=== PATIENT | female | born 1930 | race Caucasian/White ===

== ENCOUNTER → 2016-07-01 | Outpatient (CLI) | payer OTHER ==
[~2016-07-01] MED LIST: ALL100 PO; ALLO1TAB51 PO; ANSHCCR/ EX; ASCO500T3 PO; ASPI81TA28 PO; BIMA0.01 OP; CHOL2000 PO; CYAN100T6 PO; CYAN1CAP3 PO; DONE10TA12 PO; ECON118C TOP; FERR325T51 PO; FESO4TAB PO; FLUO10CA48 PO; FLUO20CA35 PO; FRRS300 PO; GLIM4TAB2 PO; HYZ/10015 PO; INSDGI SC; LEVO75TA PO; LOSA100T66 PO; METF1000 PO; METO25TA3 PO; MULT-190 PO; NAPR-201 PO; NPR375 PO; OMEP20CA9 PO; ONDA4TAB46 PO; OXYC1TAB3 PO; POLYSOL OPB; POTA10CA28 PO; RXC5 PO; SIMV40TA4 PO; SITA100T3 PO; SYN75 PO; [UNRECOGNIZED DRUG - CODE] PO
[2016-07-01 13:05] LABS: HEMATOCRIT 38.6 % (37-47); MEAN CORPUSCULAR HEMOGLOBIN 33.5 pg (25-34); MEAN CORPUSCULAR HGB CONC 34.2 g/dl (32-36); PLATELET COUNT 133 K/uL (130-400); RED BLOOD COUNT 3.94 M/uL (4.2-5.4); WHITE BLOOD COUNT 5.77 K/uL (4.8-10.8)
[2016-07-01 13:40] LABS: ALT/SGPT 22 U/L (12-78); BLOOD UREA NITROGEN 29 mg/dl (7-18); BUN/CREATININE RATIO 26.3 (10-20); CALCIUM 10.5 mg/dl (8.5-10.1); CARBON DIOXIDE 22 mmol/L (21-32); CHLORIDE 105 mmol/L (98-107); GLUCOSE 186 mg/dl (70-99); POTASSIUM 4.6 mmol/L (3.5-5.1); SODIUM 139 mmol/L (136-145)
[2016-07-01 13:42] LABS: ALB/GLOB RATIO 1.2 (0.9-2); ALKALINE PHOSPHATASE 65 U/L (45-117); AST/SGOT 20 U/L (15-37)
[2016-07-01 14:29] LABS: ESTIMATED AVERAGE GLUCOSE 183 mg/dl; HA1C FLAG Normal (Normal)
== END | disposition home or self-care (01) ==
LOC: C.LABPBG 11:08
PROVIDERS: ATTEND Internal Medicine Geriatric Medicine
DX: D64.9 Anemia, unspecified (principal); E78.5 Hyperlipidemia, unspecified; K76.0 Fatty (change of) liver, not elsewhere classified; E11.9 Type 2 diabetes mellitus without complications

== ENCOUNTER 2016-07-04 13:40 | Emergency (ER) | payer OTHER ==
[~2016-07-04] VITALS: Ht 144.8 cm; Wt 100.9 kg
[~2016-07-04 13:40] MED LIST changes: -ALL100 PO; -CYAN1CAP3 PO; -ECON118C TOP; -FLUO10CA48 PO; -FRRS300 PO; -INSDGI SC; -LEVO75TA PO; -LOSA100T66 PO; -NPR375 PO; -ONDA4TAB46 PO; -OXYC1TAB3 PO; -RXC5 PO; -[UNRECOGNIZED DRUG - CODE] PO
[2016-07-04 13:49] VITALS: TEMP 37; Ht 144.8 cm; Wt 100.9 kg
[2016-07-04] MEDS ORDERED: MoRPHine SULFATE 10 MG/ML CARP/VIAL IM STA (14:07)
[2016-07-04] MEDS ORDERED: ONDANSETRON 4MG OD TAB PO ONE (14:15)
--- NOTE | 2016-07-04 14:36 | DIAGNOSTIC IMAGING REPORT ---
RIGHT SHOULDER MIN 2 VIEWS ROUTINE CLINICAL HISTORY: Severe right shoulder pain COMPARISON: None DISCUSSION: There are mild degenerative changes present. No fractures, dislocations, or destructive lesions are evident. The heart appears enlarged with prominent central vasculature. IMPRESSION: No fractures, dislocations, or destructive lesions are visualized.. Electronically signed by: Cecli Kaiser M.D. 07/04/2016 2:34 PM Dictated Date/Time: 07/04/2016 2:33 PM
--- NOTE | 2016-07-04 14:40 | EMERGENCY ROOM VISIT NOTE ---
History Report prepared by Rachibshawn: Tushar Vásquez Under the Supervision of: Dr. Fahad Collins D.O. First contact with patient: 13:52 Chief Complaint: SHOULDER PAIN Stated Complaint: SEVERE RIGHT SHOULDER PAIN History of Present Illness The patient is an 85 year old female who presents to the Emergency Room with complaints of persistent right shoulder pain that started yesterday evening. The patient notes that she has a history of bad shoulders and has had discomfort similar to her symptoms before, but never this severe. The patient notes that yesterday she was using her arms and shoulders more than usual cleaning the bedroom and doing laundry. Doing her laundry usually hurts her shoulder, but it has never been this bad before. The patient also was mixing potatoes which she usually doesn't do which was when she started noticing the pain. Last night, the discomfort was located on the top of her shoulder. However , this morning she complained of shooting pains down her right arm and down the right side of her back. She also complains of nausea from the pain. Pt denies headache, change in vision, fevers, chest pain, shortness of breath, vomiting, and diarrhea. Source of History: patient Onset: yesterday evening Position: shoulder (right) Symptom Intensity: severe Timing: other (persistent) Associated Symptoms: + back pain (radiation down right side of back), No cough, No fevers, No numbness, No weakness Note: Other associated symptoms: radiation down right arm Denies: runny nose Review of Systems See HPI for pertinent positives & negatives. A total of 10 systems reviewed and were otherwise negative. Past Medical & Surgical Medical Problems: (1) Diabetes (2) Hypertension (3) TIA (transient ischemic attack) Family History Diabetes mellitus Heart disease Hypertension Kidney disease Kidney stones Social History Smoking Status: Never Smoker Alcohol Use: none Drug Use: none Marital Status: Housing Status: lives with family Occupation Status: retired Current/Historical Medications Scheduled Allopurinol (Allopurinol), 100 MG PO QAM Ascorbic Acid (Vitamin C), 500 MG PO QPM Aspirin (Aspirin Ec), 81 MG PO HS Bimatoprost (Lumigan), 1 DROPS OP HS Cholecalciferol (Vitamin D3), 2,000 INTER.UNIT PO BID Cyanocobalamin (B-12), 1,000 MCG PO HS Donepezil Hydrochloride (Aricept), 10 MG PO HS Ferrous Sulfate (Ferrous Sulfate), 325 MG PO DAILY WITH FOOD Fesoterodine Fumarate (Toviaz), 4 MG PO BID Fluoxetine (Prozac), 10 MG PO HS Glimepiride (Glimepiride), 2 MG PO QPM Hctz/Losartan (Hyzaar 25MG/100MG), 1 TAB PO QAM Insulin Glargine (Lantus), 19 UNITS SC QPM Levothyroxine Sodium (Synthroid), 75 MCG PO QAM Losartan Potassium & Hydrochlo (Losartan Potassium/Hydroc), 1 TAB PO DAILY Metformin Hcl (Glucophage), 1,000 MG PO BID Metoprolol Succ (Toprol Xl) (Toprol-Xl), 25 MG PO HS Ocuvite Preservision (Ocuvite Preservision), 1 TAB PO BID Omeprazole (Prilosec), 20 MG PO BID Polyvinyl Alcohol-Povidone (Op (Refresh), 1 DROP OPB QAM Potassium Chloride (Micro-K Ext Rel), 10 MEQ PO BID Simvastatin (Zocor), 40 MG PO QPM Scheduled PRN Econazole Nitrate (Econazole Nitrate), 1 APPLN TOP BID PRN for PRN Hydrocortisone (Hydrocortisone 2.5%), 1 APPLN EX TID PRN for PRN Naproxen (Naproxen), 375 MG PO DAILY PRN for Pain Oxycodone Immediate Rel Tab (Roxicodone Ir), 5 MG PO Q4H PRN for Severe Pain Tramadol Hcl (Ultram Er), 100 MG PO DAILY PRN for Pain Allergies Coded Allergies: Lisinopril (Unverified Allergy, Unknown, COUGH, 07/04/16) Sulfa Antibiotics (Verified Adverse Reaction, Unknown, VOMITING, 07/04/16) Physical Exam Vital Signs Date Time Temp Pulse Resp B/P Pulse Ox O2 Delivery O2 Flow Rate FiO2 07/04/16 15:10 88 18 155/87 93 Room Air 07/04/16 13:49 37.0 89 18 165/92 94 Room Air Physical Exam GENERAL: sitting up in bed, no distress, non-toxic EYE EXAM: normal conjunctiva. OROPHARYNX: no exudate, no erythema, lips, buccal mucosa, and tongue normal and mucous membranes are moist NECK: supple, no nuchal rigidity, no adenopathy, non-tender LUNGS: Clear to auscultation. Normal chest wall mechanics HEART: no murmurs, S1 normal and S2 normal ABDOMEN: abdomen soft, non-tender, normo-active bowel sounds, no masses, no rebound or guarding. BACK: Back is symmetrical on inspection and there is no deformity, no midline tenderness, no CVA tenderness. SHOULDER: Acute reproducible tenderness over mid-humeral head, radial pulse is 2 out of 4, grasp with abduction along with digits intact, pronation, supination along with flexion and extension of wrist and elbow 5 out of 5, severe pain with abduction, no obvious deformity. SKIN: no rashes and no bruising. Old incision over bilateral knees. LOWER EXTREMITIES: No pitting edema. NEURO EXAM: Normal sensorium. Medical Decision & Procedures ER Provider Diagnostic Interpretation: Xray results per the radiologist and my interpretation. RIGHT SHOULDER MIN 2 VIEWS ROUTINE CLINICAL HISTORY: Severe right shoulder pain COMPARISON: None DISCUSSION: There are mild degenerative changes present. No fractures, dislocations, or destructive lesions are evident. The heart appears enlarged with prominent central vasculature. IMPRESSION: No fractures, dislocations, or destructive lesions are visualized.. Electronically signed by: Cecil Kaiser M.D. 07/04/2016 2:34 PM Dictated Date/Time: 07/04/2016 2:33 PM Medications Administered Medications (Trade) Dose Ordered Sig/Eugene Route Start Time Stop Time Status Last Admin Dose Admin Morphine Sulfate (MoRPHine SULFATE INJ) 6 mg NOW STAT IM 07/04/16 14:07 07/04/16 14:08 DC 07/04/16 14:17 6 MG Ondansetron HCl (Zofran Odt) 4 mg ONE ONCE PO 07/04/16 14:15 07/04/16 14:16 DC 07/04/16 14:17 4 MG ED Course ED COURSE: Vital signs were reviewed and showed hypertensive The patients medical record was reviewed The above diagnostic studies were performed and reviewed. ED treatments and interventions as stated above. 1357: The patient was evaluated in room C6. A complete history and physical examination was performed. 1407: Ordered Morphine Sulfate 6 mg IM. 1415: Ordered Zofran Odt 4 mg PO. 1456: Upon reevaluation, the patient is resting comfortably.I discussed my findings with the patient and she understands and agrees with the treatment plan. Based on the patients age, coexisting illnesses, exam and lab findings the decision to treat as an outpatient was made. The patient remained stable while under my care. The patient appeared well at the time of discharge. Medical Decision Differential diagnosis: Etiologies such as fracture, dislocation, neurovascular compromise, compartment syndrome, soft tissue injury, as well as others were entertained. Patient is an 85-year-old female who presents the ER for right shoulder pain. She notes that she gets this intermittently when she overexerted herself which includes folding the laundry. This started last night after dinner and mixing potatoes. Patient denies any numbness or weakness in her arm. Pain is significantly worsened with abduction. Neurovascularly intact. Patient is no other complaints at this time. X-ray show no acute fracture dislocation. I do favor that this is likely secondary to overuse and possibly accommodation of arthritis. Patient was given IM morphine and oral Zofran. Patient was updated bedside discharged follow-up with primary care doctor. Discussed with Pt concerning signs and symptoms to watch out for. Pt was instructed to follow up with their PCP and discussed with the patient their option to return to the ED at anytime for persistent or worsening symptoms. The appropriate anticipatory guidance and out-patient management, including indications for return to the emergency department, were explained at length to the patient and understood. [place] Drug Monitoring Program Search Results: patient reviewed within database (Previous Tramadol prescriptions) Impression Primary Impression: Shoulder pain, acute Scribe Attestation The scribe's documentation has been prepared under my direction and personally reviewed by me in its entirety. I confirm that the note above accurately reflects all work, treatment, procedures, and medical decision making performed by me. Departure Information Dispostion Home / Self-Care Prescriptions Oxycodone Immediate Rel Tab (ROXICODONE IR) 5 Mg Tab 5 MG PO Q4H Y for Severe Pain, #20 TAB Prov: Fahad Collins, 07/04/16 Referrals Rober Mack M.D. (PCP) Forms HOME CARE DOCUMENTATION FORM, IMPORTANT VISIT INFORMATION Patient Instructions My [facility] Additional Instructions Please follow up with your primary care doctor with in the next 24 hours. Any worsening of your symptoms, please return to the ED immediately. This includes fevers greater than 100.4, worsening pain, numbness or weakness in her arm, or any other concerning signs or symptoms from your standpoint. You were given medications during this visit that will inhibit your ability to drive, operate machinery and work. Please do NOT drive, operate machinery or work for the next 12hrs. You were also given a prescription for a narcotic/OXY IR. While taking this medication you should also not drive, operate machinery and or work. Please do not take OxyIR in combination with Ultram/tramadol. Problem Qualifiers Primary Impression: Shoulder pain, acute Laterality: right Qualified Codes: M25.511 - Pain in right shoulder
[2016-07-04] MEDS ORDERED: FRRS300 PO (14:52)
[2016-07-04] MEDS ORDERED: CYAN1CAP3 PO (14:52)
[2016-07-04] MEDS ORDERED: NPR375 PO (14:52)
[2016-07-04] MEDS ORDERED: ECON118C TOP (14:52)
[2016-07-04] MEDS ORDERED: LOSA100T66 PO (14:52)
[2016-07-04] MEDS ORDERED: LEVO75TA PO (14:52)
[2016-07-04] MEDS ORDERED: ALL100 PO (14:52)
[2016-07-04] MEDS ORDERED: [UNRECOGNIZED DRUG - CODE] PO (14:52)
[2016-07-04] MEDS ORDERED: OXYC1TAB3 PO (14:53)
[2016-07-04] MEDS ORDERED: INSDGI SC (14:59)
[2016-07-04 15:10] VITALS: BP 155/87; PULSE 88; O2SAT 93
[2016-07-14] MEDS ORDERED: FLUO10CA48 PO (10:28)
[2016-07-14] MEDS ORDERED: ONDA4TAB46 PO (10:30)
[2016-08-07] MEDS ORDERED: RXC5 PO (09:40)
== END 2016-07-04 15:11 | disposition home or self-care (01) ==
LOC: C.EDB 13:44 → C.EDC 15:11
DX: M25.511 Pain in right shoulder (principal); E11.9 Type 2 diabetes mellitus without complications; I10 Essential (primary) hypertension; Z79.899 Other long term (current) drug therapy; Z79.4 Long term (current) use of insulin; Z79.82 Long term (current) use of aspirin; Z86.73 Personal history of transient ischemic attack (TIA), and cerebral infarction without residual deficits; Z83.3 Family history of diabetes mellitus; Z82.49 Family history of ischemic heart disease and other diseases of the circulatory system; Z84.1 Family history of disorders of kidney and ureter

== ENCOUNTER → 2016-07-06 | Outpatient (CLI) | payer OTHER ==
[~2016-07-06] MED LIST changes: +ALL100 PO; -ALLO1TAB51 PO; -CYAN100T6 PO; +CYAN1CAP3 PO; +ECON118C TOP; -FERR325T51 PO; +FLUO10CA48 PO; +FRRS300 PO; +INSDGI SC; +LEVO75TA PO; +LOSA100T66 PO; -NAPR-201 PO; +NPR375 PO; +ONDA4TAB46 PO; +OXYC1TAB3 PO; +RXC5 PO; -SITA100T3 PO; -SYN75 PO; +[UNRECOGNIZED DRUG - CODE] PO
== END | disposition home or self-care (01) ==
LOC: C.LABPBG 12:05
PROVIDERS: ATTEND Internal Medicine Geriatric Medicine
DX: E83.52 Hypercalcemia (principal)

== ENCOUNTER → 2016-07-27 | Outpatient (CLI) | payer OTHER ==
[~2016-07-27] MED LIST changes: +BACITRACIN 50000 UNIT VIAL ONE; +BUPIVACAINE/EPINEPHRINE 0.5% MPF 1:200,000 30 ML VIAL ONE; -FLUO20CA35 PO; -HYZ/10015 PO; -NPR375 PO; -OXYC1TAB3 PO; +SODIUM CHLORIDE 0.9% PF 50 ML VIAL ONE; +THROMBIN FOR SOLN 20000 UNIT KIT ONE
== END | disposition home or self-care (01) ==
LOC: C.LABPBG 10:02
PROVIDERS: ATTEND Internal Medicine Geriatric Medicine
DX: E03.9 Hypothyroidism, unspecified (principal)

== ENCOUNTER 2016-08-04 08:42 | Inpatient (IN) | payer OTHER ==
[2016-07-14 10:36] VITALS: BMI 49.0
--- NOTE | 2016-07-14 11:19 | PAT Medication Instructions ---
Service Date Jul 14, 2016. Current Home Medication List Allopurinol (Allopurinol), 100 MG PO QAM Ascorbic Acid (Vitamin C), 500 MG PO QPM Aspirin (Aspirin Ec), 81 MG PO HS Bimatoprost (Lumigan), 1 DROPS OP HS Cholecalciferol (Vitamin D3), 2,000 INTER.UNIT PO BID Cyanocobalamin (B-12), 1,000 MCG PO HS Donepezil Hydrochloride (Aricept), 10 MG PO HS Econazole Nitrate (Econazole Nitrate), 1 APPLN TOP BID PRN for PRN Ferrous Sulfate (Ferrous Sulfate), 325 MG PO QAM Fesoterodine Fumarate (Toviaz), 4 MG PO BID Fluoxetine (Prozac), 5 MG PO HS Glimepiride (Glimepiride), 2 MG PO QPM Hydrocortisone (Hydrocortisone 2.5%), 1 APPLN EX TID PRN for PRN Insulin Glargine (Lantus), 23 UNITS SC QPM Levothyroxine Sodium (Synthroid), 75 MCG PO QAM Losartan Potassium & Hydrochlo (Losartan Potassium/Hydroc), 1 TAB PO QAM Metformin Hcl (Glucophage), 1,000 MG PO BID Metoprolol Succ (Toprol Xl) (Toprol-Xl), 25 MG PO HS Ocuvite Preservision (Ocuvite Preservision), 1 TAB PO BID Omeprazole (Prilosec), 20 MG PO QAM Ondansetron Hcl (Zofran), 4 MG PO Q6H PRN for N Polyvinyl Alcohol-Povidone (Op (Refresh), 1 DROP OPB QAM Potassium Chloride (Micro-K Ext Rel), 10 MEQ PO BID Simvastatin (Zocor), 40 MG PO HS Tramadol Hcl (Ultram Er), 100 MG PO DAILY PRN for Pain Medication Instructions For Your Scheduled Surgery - Hold the following medications 48 hours prior to surgery: Metformin Hcl (Glucophage), 1,000 MG PO BID - Hold the following medications 24 hours prior to surgery: Hydrocortisone (Hydrocortisone 2.5%), 1 APPLN EX TID PRN for PRN Econazole Nitrate (Econazole Nitrate), 1 APPLN TOP BID PRN for PRN - Hold the following medications the morning of surgery: Potassium Chloride (Micro-K Ext Rel), 10 MEQ PO BID Ocuvite Preservision (Ocuvite Preservision), 1 TAB PO BID Losartan Potassium & Hydrochlo (Losartan Potassium/Hydroc), 1 TAB PO QAM Fesoterodine Fumarate (Toviaz), 4 MG PO BID (bring with you to hospital) Ferrous Sulfate (Ferrous Sulfate), 325 MG PO QAM Cholecalciferol (Vitamin D3), 2,000 INTER.UNIT PO BID - Take the following medications the morning of surgery with a sip of water: Tramadol Hcl (Ultram Er), 100 MG PO DAILY PRN for Pain (can take up to four hours prior to surgery if needed) Polyvinyl Alcohol-Povidone (Op (Refresh), 1 DROP OPB QAM Omeprazole (Prilosec), 20 MG PO QAM Levothyroxine Sodium (Synthroid), 75 MCG PO QAM Ondansetron Hcl (Zofran), 4 MG PO Q6H PRN for N (only if needed) Allopurinol (Allopurinol), 100 MG PO QAM - Take the following medications as scheduled the night before surgery: Tramadol Hcl (Ultram Er), 100 MG PO DAILY PRN for Pain Simvastatin (Zocor), 40 MG PO HS Potassium Chloride (Micro-K Ext Rel), 10 MEQ PO BID Ocuvite Preservision (Ocuvite Preservision), 1 TAB PO BID Metoprolol Succ (Toprol Xl) (Toprol-Xl), 25 MG PO HS Insulin Glargine (Lantus), 23 UNITS SC QPM Fluoxetine (Prozac), 5 MG PO HS Glimepiride (Glimepiride), 2 MG PO QPM Fesoterodine Fumarate (Toviaz), 4 MG PO BID Donepezil Hydrochloride (Aricept), 10 MG PO HS Cholecalciferol (Vitamin D3), 2,000 INTER.UNIT PO BID Cyanocobalamin (B-12), 1,000 MCG PO HS Bimatoprost (Lumigan), 1 DROPS OP HS Ascorbic Acid (Vitamin C), 500 MG PO QPM Aspirin (Aspirin Ec), 81 MG PO HS If you have any questions please call us at [phone] or [phone] ( Emil[place]) or [phone]
[2016-07-14 11:48] LABS: BASO % 0.3 %; BASO ABS # 0.02 K/uL (0-0.2); COMPLETE YES; EOS % 1.7 %; IG% 0.2 %; LYMPH % 18.6 %; LYMPH ABS # 1.07 K/uL (1.2-3.4); MEAN CELL VOLUME 98.1 fL (80-100); MEAN CORPUSCULAR HGB CONC 33.6 g/dl (32-36); MEAN PLATELET VOLUME 10.1 fL (7.4-10.4); MONO % 9.6 %; NEUT % 69.6 %; PLATELET COUNT 123 K/uL (130-400); RED BLOOD COUNT 3.67 M/uL (4.2-5.4); WHITE BLOOD COUNT 5.74 K/uL (4.8-10.8)
[2016-07-14 11:59] LABS: URINE APPEARANCE CLEAR (CLEAR); URINE BILIRUBIN NEG (NEG); URINE COLOR YELLOW; URINE NITRITE NEG (NEG); URINE PH 5.5 (4.5-7.5); URINE SPECIFIC GRAVITY 1.016 (1.000-1.030); UROBILINOGEN NEG (NEG)
[2016-07-14 12:16] LABS: MANUAL MICROSCOPIC REQUIRED? NO; REVIEW REQ? NO
--- NOTE | 2016-07-14 12:36 | DIAGNOSTIC IMAGING REPORT ---
CHEST PREADMISSION(PA/LAT) HISTORY: Preop. COMPARISON: None. FINDINGS: The heart is top normal in size. Mild diffuse interstitial thickening which is likely chronic. Prominence of the aortic knob measuring up to 4.5 cm.. Blunting of the left lateral costophrenic sulcus. This may represent a trace left pleural effusion. No focal lung consolidations to suggest pneumonia. No evidence for pulmonary edema. IMPRESSION: 1. Prominence of the aortic knob measuring up to 4.5 cm. This could be due to aneurysmal dilatation of the aortic arch. 2. Mild diffuse interstitial thickening is likely chronic. 3. Suspect a trace left pleural effusion. Electronically signed by: Eduard Huerta M.D. 07/14/2016 12:34 PM Dictated Date/Time: 07/14/2016 12:32 PM
--- NOTE | 2016-08-03 09:03 | HISTORY & PHYSICAL EXAMINATION ---
DATE OF ADMISSION: 08/04/2016 HISTORY OF PRESENT ILLNESS: The patient presents to our office with a complaint of chronic lower back pain. It is progressively worsening. It also involves her legs. Any type of walking, shopping or doing dishes or activities such as lifting reproduce her symptoms. She is most comfortable lying flat and applying a heating pad to her back. She reports some falls due to staggering recently. She otherwise ambulates independently. Denies bowel or bladder dysfunction. She has trialed physical therapy in the past without relief. She has trialed multiple caudal injections in 2014 as well as [address] Dunlap which all provide temporary relief. She takes tramadol for pain control but not on a daily basis. PAST MEDICAL HISTORY: Significant for hypertension, high cholesterol, sleep apnea with use of CPAP machine, anxiety, depression, diabetes, arthritis, GERD, hiatal hernia, obesity, kidney stones. PAST SURGICAL HISTORY: Significant for carpal tunnel release, hysterectomy, arthrocentesis right knee, arthrocentesis left shoulder, tonsillectomy. ALLERGIES: INCLUDE SULFA. CURRENT MEDICATIONS: Include levothyroxine 75 mcg daily, metformin 500 mg twice a day, metoprolol 25 mg daily, naproxen 375 mg daily p.r.n., omeprazole 10 mg a day, MiraLax daily as needed, potassium 10 mEq twice a day, Zocor 40 mg a day, Januvia 100 mg a day, VESIcare 10 mg a day. SOCIAL HISTORY: She is retired. Alcohol use is none. Tobacco use is none. FAMILY HISTORY: Significant for arthritis. REVIEW OF SYSTEMS: Significant for back pain, bilateral leg pain and anxiety. PHYSICAL EXAMINATION: HEAD, EYES, EARS, NOSE, AND THROAT: Speech appropriate. CARDIOPULMONARY: No gross abnormalities. ABDOMEN: Soft, nontender. GENITOURINARY: Deferred. NEUROLOGIC: Cranial nerves II-XII grossly intact. MUSCULOSKELETAL: She ambulates with a slow wide and independent gait. No evidence of ankle clonus. Negative Babinski. She is nontender to palpation of the thoracolumbar spine. Strength is intact bilateral lower extremities. Neurovascularly intact. ASSESSMENT: Spondylolisthesis of L4-L5. Multilevel severe foraminal stenosis L3-L4, L4-L5 and L5-S1. PLAN: At this point in time, she has trialed conservative therapy. She may consider surgical intervention. This would require lumbar decompression with instrumented fusion L3-L4, L4-L5, L5-S1 with possible iliac bolts. Risks, benefits, pros, cons, and alternatives were outlined in detail. She would like to proceed with the above-mentioned surgical planning.
[~2016-08-04] VITALS: Ht 144.8 cm; Wt 101.8 kg
[2016-08-04] VITALS (7 sets, daily range): BP systolic 90–149; BP diastolic 0–76; PULSE 65–103; TEMP 34.7–36.7; O2SAT 95–99; BMI 49.0; BMI 48.6
--- NOTE | 2016-08-04 07:27 | History & Physical Bridge Note ---
H&P Re-Evaluation Bridge Note: I have examined the patient, reviewed the History & Physical and in the interval since the performance of the History & Physical I have noted the following changes of clinical significance: No changes noted
[~2016-08-04 08:42] MED LIST changes: -BACITRACIN 50000 UNIT VIAL ONE; -BUPIVACAINE/EPINEPHRINE 0.5% MPF 1:200,000 30 ML VIAL ONE; +CEFAZOLIN 2000 MG/60 ML D5W IV SCH; -RXC5 PO; +SODIUM CHLORIDE 0.9% 1000ML 1,000 ML IV SCH; -SODIUM CHLORIDE 0.9% PF 50 ML VIAL ONE; -THROMBIN FOR SOLN 20000 UNIT KIT ONE
[2016-08-04] MEDS ORDERED: PHENYLEPHRINE 100MCG/ML 5ML SYR IV PRN (09:15)
[2016-08-04] MEDS ORDERED: EpHEDrine SULFATE INJ 50 MG/ML AMP IV PRN (09:15)
[2016-08-04] MEDS ORDERED: FLUMAZENIL 0.1 MG/1 ML 10 ML VIAL IV PRN (09:15)
[2016-08-04] MEDS ORDERED: ATROPINE SULFATE 0.1 MG/ML 5ML SYR IV PRN (09:15)
[2016-08-04] MEDS ORDERED: MEPERIDINE HCL 25 MG/ML CARP IV PRN (09:15)
[2016-08-04] MEDS ORDERED: MoRPHine SULFATE 10 MG/ML CARP/VIAL IV PRN (09:15)
[2016-08-04] MEDS ORDERED: LABETALOL HCL IV 5 MG/ML 20ML IV PRN (09:15)
[2016-08-04] MEDS ORDERED: HYDROmorphone INJ 1 MG/ML SYR IV PRN (09:15)
[2016-08-04] MEDS ORDERED: ONDANSETRON INJ 2 MG/ML 2 ML VIAL IV PRN (09:15)
[2016-08-04] MEDS ORDERED: NALOXONE HCL 0.4 MG/1 ML VIAL/CARP IV PRN ×3 (09:15→13:15)
[2016-08-04] MEDS ORDERED: MIDAZOLAM HCL 1 MG/ML 2ML VIAL ONE (09:51)
[2016-08-04] MEDS ORDERED: FENTANYL CITRATE INJ 50 MCG/1 ML 2 ML VIAL ONE ×5 (09:51→13:13)
[2016-08-04] MEDS ORDERED: NovoLIN-R INSULIN PER UNIT CHARGE ONE (09:52)
[2016-08-04] MEDS ORDERED: INSULIN HUMAN REGULAR IV ONE (10:00)
[2016-08-04] MEDS ORDERED: LIDOCAINE HCL 2% 2 ML VIAL (20MG/ML) ONE ×2 (10:14→12:28)
[2016-08-04] MEDS ORDERED: THROMBIN FOR SOLN 20000 UNIT KIT ONE (11:50)
[2016-08-04] MEDS ORDERED: BUPIVACAINE/EPINEPHRINE 0.5% MPF 1:200,000 30 ML VIAL ONE (11:50)
[2016-08-04] MEDS ORDERED: SODIUM CHLORIDE 0.9% PF 50 ML VIAL ONE (11:50)
[2016-08-04] MEDS ORDERED: BACITRACIN 50000 UNIT VIAL ONE (11:50)
[2016-08-04] MEDS ORDERED: ALBUMIN HUMAN 5% 12.5 GM/250 ML VIAL IV ONE ×2 (11:55→13:01)
[2016-08-04] MEDS ORDERED: HYDROmorphone INJ 2 MG/ML SYR/VIAL ONE (12:10)
[2016-08-04] MEDS ORDERED: ONDANSETRON INJ 2 MG/ML 2 ML VIAL ONE ×2 (12:28→14:05)
[2016-08-04] MEDS ORDERED: PHENYLEPHRINE 100MCG/ML 5ML SYR ONE (12:28)
[2016-08-04] MEDS ORDERED: PROPOFOL IV EMULSION 10 MG/ML 20 ML VIAL IV ONE ×2 (12:28→13:02)
[2016-08-04] MEDS ORDERED: ROCURONIUM BROMIDE 10 MG/ML 5 ML VIAL ONE (12:28)
[2016-08-04] MEDS ORDERED: EpHEDrine SULFATE 50MG/5ML SYR ONE (12:28)
[2016-08-04] MEDS ORDERED: SODIUM CHLORIDE 0.9% 1000ML 1,000 ML IV SCH (13:03)
--- NOTE | 2016-08-04 13:03 | [facility] Post Operative Brief Note ---
Immediate Operative Summary Operative Date Aug 04, 2016. Pre-Operative Diagnosis Spondylolisthesis of L4-L5. Multilevel severe foraminal stenosis L3-L4, L4-L5 and L5-S1 Post-Operative Diagnosis same as preop Procedure(s) Performed decompression fusion Surgeon Dr. David Sanchez Rubber Belt Splicer Surgeon(s) CRYSTAL Lincoln Estimated Blood Loss 800 Findings stenosis Specimens none per surgeon
[2016-08-04 13:04] LABS: HEMATOCRIT 26.5 % (37-47)
[2016-08-04] MEDS ORDERED: FLOSEAL HEMOSTATIC MATRIX 10ML TOP ONE (13:06)
[2016-08-04] MEDS ORDERED: ESMOLOL HCL 10 MG/ML 10 ML VIAL ONE (13:09)
[2016-08-04] MEDS ORDERED: PHARMACY GLYCEMIC MGMT CONSULT PRN (13:13)
[2016-08-04] MEDS ORDERED: LORAZEPAM 0.5 MG TAB PO PRN (13:15)
[2016-08-04] MEDS ORDERED: METOCLOPRAMIDE HCL INJ 5 MG/ML 2 ML VIAL IV PRN (13:15)
[2016-08-04] MEDS ORDERED: ACETAMINOPHEN 500 MG TAB PO PRN (13:15)
[2016-08-04] MEDS ORDERED: ONDANSETRON 4 MG TAB PO PRN (13:15)
[2016-08-04] MEDS ORDERED: MAGNESIUM HYDROXIDE SUSP 30 ML UDC PO PRN (13:15)
[2016-08-04] MEDS ORDERED: ALUMINUM/MAGNESIUM SUSP 30 ML UDC PO PRN (13:15)
[2016-08-04] MEDS ORDERED: DO NOT ADMINISTER FLU VACCINE PRN ×3 (13:15)
[2016-08-04] MEDS ORDERED: PROMETHAZINE HCL INJ 12.5 MG in SODIUM CHLORIDE 0.9% 50ML 50 ML IV PRN (13:15)
[2016-08-04] MEDS ORDERED: LORAZEPAM INJ 0.5 MG in SYRINGE 0.75 ML IV PRN (13:15)
[2016-08-04] MEDS ORDERED: FAMOTIDINE 20 MG TAB PO PRN (13:15)
[2016-08-04] MEDS ORDERED: hydrOXYzine HCL 25 MG TAB PO PRN (13:15)
[2016-08-04] MEDS ORDERED: BISACODYL 10 MG SUPP PR PRN (13:15)
[2016-08-04] MEDS ORDERED: SOD PHOSPHATE/SOD BIPHOSPHATE ENEMA 132 ML BTL PR PRN (13:15)
[2016-08-04] MEDS ORDERED: ACETAMINOPHEN IV 100 ML IV PRN (13:15)
[2016-08-04] MEDS ORDERED: DO NOT ADMINISTER PNEUMOCOCCAL VACCINE PRN ×2 (13:15)
[2016-08-04] MEDS ORDERED: LABETALOL HCL IV 5 MG/ML 20ML ONE (13:19)
--- NOTE | 2016-08-04 13:20 | DIAGNOSTIC IMAGING REPORT ---
INTRAOPERATIVE LUMBAR SPINE 4 VIEWS CLINICAL HISTORY: L3-S1 DECOMPRESSION/FUSION/INTERBODY COMPARISON STUDY: No previous studies for comparison. FINDINGS: 32 seconds of fluoroscopic time was utilized. 4 fluoroscopic spot images are provided for interpretation. There are postsurgical changes of an L5-S1 discectomy and interbody fusion. There is a grade 1 spondylolisthesis of L4 and L5. There are pedicle screws present the L3, L4, L5, and S1 levels with adjoining spinal rods. There are bilateral sacroiliac bolts. IMPRESSION: Postsurgical changes as described above. Electronically signed by: Cecil Kaiser M.D. 08/04/2016 1:18 PM Dictated Date/Time: 08/04/2016 1:17 PM
[2016-08-04] MEDS ORDERED: HYDROmorphone HCL 0.5MG/ML 50 ML CASSETTE ONE (13:28)
--- NOTE | 2016-08-04 14:11 | OPERATIVE REPORT ---
DATE OF OPERATION: 08/04/2016 PREOPERATIVE DIAGNOSES: Spinal stenosis and spondylolisthesis. POSTOPERATIVE DIAGNOSES: Same. PROCEDURES PERFORMED: 1. Lumbar decompression, medial facetectomy, and foraminotomy, L2-L3, L3-L4, L4-L5, and L5-S1. 2. Posterior spinal fusion, L3-L4, L4-L5, and L5-S1. 3. Bilateral SI joint fusion. 4. Placement of posterior segmental instrumentation using Medicrea rods and screws, L3-S1 as well as bilateral iliac bolts. 5. Interbody fusion, L5-S1. 6. Placement of PEEK cage 11 x 22 mm at L5-S1. 7. Placement of locally harvested morselized autograft in the posterior gutters. 8. Placement of Infuse collagen sponge combined with Mastergraft in the posterior lateral gutters and Kamila bone grafting in the interbody space. SURGEON: Dr. David Sanchez. SHANK TAPPER: NEGRA Orozco. Due to the complex nature of the procedure, the entire surgery was performed with the seed analysis laboratory assistant of NEGRA Orozco. The school psychologist assistant, under direct supervision, was involved in the actual performance of all aspects of the surgical procedure including hemostasis, tissue retraction and incision, instrument management, patient positioning, and wound closure. ANESTHESIA: General. DISPOSITION: The patient awakened and taken back to PACU in stable condition. HISTORY OF PATIENT'S PROBLEMS: This is an 85-year-old female that presents with the above-mentioned diagnoses. After failing an extensive course of nonoperative care, she elected to undergo the above-mentioned procedures. Risks, benefits, pros, cons, and alternatives were outlined in detail preoperatively. DESCRIPTION OF PROCEDURE: The patient was met with preoperatively, case discussed and all questions were addressed. At that point, the patient was taken back to operative suite and after undergoing successful general intubation by the department of anesthesia, she was placed in prone position on Billy table atop John frame. All bony prominences were well padded and the eyes were inspected to ensure there was no external pressure placed upon them. At this point, lumbar spine was prepped and draped in normal sterile fashion. Sharp dissection with the assistance of Bovie cautery performed down to and exposing the lamina and transverse processes of L3, L4, L5 and sacral ala bilaterally. From a caudal to cephalad fashion, complete laminectomy of L5, L4, L3 and partial laminectomy of L2 was performed addressing severe lateral recess and foraminal disease. Pedicle screws were then placed in L3, L4, L5 and S1 levels bilaterally including placement of bilateral iliac bolts through a transforaminal approach on the right, a complete discectomy of L5-S1 was performed, endplates curetted to subcortical bleeding bone and an 11 x 22 mm PEEK cage filled with Kamila bone grafting tapped into position. After this was complete, the appropriate size rods were contoured, locked into final position bilaterally and transverse processes of L3, L4, L5, the sacral ala and the bilateral SI joints were burred to subcortical bleeding bone. Infuse collagen sponge combined with Mastergraft and locally harvested morcellized autograft was placed. A crosslink locked into position, 7 flat ELOISA drain inserted. Incision was closed with 1-0 Vicryl in the fascia, 2-0 Vicryl subcutaneously, and 4-0 Monocryl for final skin closure. Steri-Strips and sterile dressing placed. The patient was awakened and taken to PACU in a stable condition. I attest to the content of the Intraoperative Record and any orders documented therein. Any exceptio ns are noted below.
--- NOTE | 2016-08-04 14:28 | Pharmacy Progress Note ---
Glycemic Control Intl Consult Date of Service Aug 04, 2016. Scope Glycemic Pharmacist consulted for glycemic control and to write orders per [facility] inpatient glycemic control protocol Objective Weight (Kilograms): 101.80 Accuchecks BSG (last 24hrs): Test 08/04/16 09:16 08/04/16 11:38 08/04/16 13:43 Bedside Glucose 228 mg/dl (70-90) 172 mg/dl (70-90) 214 mg/dl (70-90) HbA1c 8% on 07/01/16 Recent Pertinent Medications Outpatient Anti-diabetic Regimen: * Lantus 30 units SQ HS * Amaryl 2mg PO PM * Metformin 1,000mg PO BID Assessment & Plan ASSESSMENT: * 85yo T2DM female with adequate degree of outpatient control based on age/ comorbidities per recent A1c. * Pt is maintained on basal insulin + oral agents * Will hold oral agents for inpatient use and utilize weight based SQ basal bolus insulin regimen * May resume oral agents at discharge * Pt with hyperglycemia prior to surgery despite taking antidiabetic medications the evening prior to surgery. * Additional risk factors for insulin resistance/hyperglycemia include: high dose IV dexamethasone x 3 doses, stress, surgery * ADA & AACE recommend a goal blood sugar range 140-180 mg/dl for the majority of critically ill & non-critically ill patients. However, more stringent targets may be selected in individual cases. Will utilize slightly more aggressive goal range of 120-150mg/dl to facilitate healing post-operatively. PLAN FOR INPATIENT GLYCEMIC CONTROL: Start weight/stress based SQ basal bolus insulin regimen and titrate based on BSG trends * Hold outpatient oral diabetes medications - may resume at discharge * Basal insulin with LANTUS 35 units SQ HS - first dose at dinner tonight when first dose of DXM is given * Correctional Insulin with NOVOLOG per scale ACHS or Q6hrs while NPO * Goal Range: Low 120 mg/dL - High 150 mg/dL * Correction Factor: 20 mg/dL/unit * Nutritional / Prandial insulin per carb ratio of 1 unit per 7 grams CHO consumed * Additional overnight checks + coverage at 0000 & 0400 for RTC hyperglycemia * Goal Range: Low 140 mg/dL - High 180 mg/dL * Correction Factor: 20 mg/dL/unit * Nutritional / Prandial insulin per carb ratio of 1 unit per 7 grams CHO consumed * Please note that the plan above was derived based on current level of insulin resistance and hospital stress. These recommendations are appropriate for inpatient admission only. Plan of care upon discharge will need to be reassessed to avoid potential outpatient hypo/hyperglycemia. Thank you.
[2016-08-04] MEDS ORDERED: GLUCAGON FOR INJ 1 MG VIAL SQ PRN (14:30)
[2016-08-04] MEDS ORDERED: GLUCOSE 40% GEL 15 GM TUBE PO PRN (14:30)
[2016-08-04] MEDS ORDERED: GLUCOSE 10 TABS/TUBE PO PRN (14:30)
[2016-08-04] MEDS ORDERED: DEXTROSE 50% 50 ML SYR IV PRN (14:30)
[2016-08-04] MEDS ORDERED: METOPROLOL TARTRATE 1 MG/ML VIAL ONE (14:43)
[2016-08-04] MEDS ORDERED: METOPROLOL TARTRATE 1 MG/ML VIAL IV STA (14:51)
--- NOTE | 2016-08-04 15:08 | Anesthesiology Progress Note ---
Anesthesia Post Op Note Date & Time Aug 04, 2016 at 15:09 Vital Signs Pain Intensity: 5 Vital Signs Past 12 Hours Date Time Temp Pulse Resp B/P Pulse Ox O2 Delivery O2 Flow Rate FiO2 08/04/16 14:27 36.5 98 17 161/83 94 Nasal Cannula 4 08/04/16 14:15 104 17 164/84 94 Mask 10 08/04/16 14:05 108 21 152/91 95 Mask 10 08/04/16 13:55 98 15 148/66 94 Mask 10 08/04/16 13:45 99 16 128/72 94 Mask 10 08/04/16 13:37 36.2 97 18 114/68 97 Mask 10 08/04/16 13:28 36.2 95 20 125/73 96 Mask 15 08/04/16 09:17 36.5 81 18 146/0 96 Room Air Notes Mental Status: alert / awake / arousable, participated in evaluation Pt Amnestic to Procedure: Yes Nausea / Vomiting: adequately controlled Pain: adequately controlled Airway Patency, RR, SpO2: stable & adequate BP & HR: stable & adequate Hydration State: stable & adequate Anesthetic Complications: no major complications apparent
[2016-08-04] MEDS: HYDROmorphone HCL 0.5MG/ML 50 ML CASSETTE IV PRN ×2 (15:37→23:13)
--- NOTE | 2016-08-04 16:52 | Progress Note ---
Subjective Date of Service: Aug 04, 2016. Subjective Pt evaluation today including: conversation w/ patient, conversation w/ family , physical exam, chart review, lab review, review of inpatient medication list asked to see for post op management feeling good overall - just a little nausea no cp no sob DM - labs and prior A1c noted (8% in june), on decadron post surg BP noted - she relates she took none of her meds this AM very [place] and vision poor as well Problem List Medical Problems: (1) Hyperglycemia due to type 2 diabetes mellitus Status: Acute (2) Shoulder pain, acute Status: Acute (3) TIA (transient ischemic attack) Status: Acute Review of Systems ros otherwise negative except for as above Objective Vital Signs Date Time Temp Pulse Resp B/P Pulse Ox O2 Delivery O2 Flow Rate FiO2 08/04/16 14:27 36.5 98 17 161/83 94 Nasal Cannula 4 08/04/16 14:15 104 17 164/84 94 Mask 10 08/04/16 14:05 108 21 152/91 95 Mask 10 08/04/16 13:55 98 15 148/66 94 Mask 10 08/04/16 13:45 99 16 128/72 94 Mask 10 08/04/16 13:37 36.2 97 18 114/68 97 Mask 10 08/04/16 13:28 36.2 95 20 125/73 96 Mask 15 08/04/16 09:17 36.5 81 18 146/0 96 Room Air Physical Exam General Appearance: no apparent distress Eyes: EOMI ENT: hearing grossly normal ([place] but talking loud, slow into ear, she appears able to hear and communicate well) Neck: trachea midline Respiratory/Chest: no respiratory distress, no accessory muscle use Extremities: normal range of motion 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 follow clinically, follow Hgb DM -insulin orders appear very appropriate as starting point - with steroids might need tighter dosing but will have to follow for now HTN -not on SIRIA/ARB or diuretic based on chart - continue current meds, no hypotension DVT proph -per orthopedics
[2016-08-04] MEDS ORDERED: INSULIN GLARGINE SOLOSTAR 100 UNITS/ML 3 ML PEN SC SCH (17:00)
[2016-08-04] MEDS: INSULIN ASPART 100 UNITS/ML 3 ML PEN SC SCH ×2 (17:15→21:26)
[2016-08-04] MEDS: ONDANSETRON INJ 2 MG/ML 2 ML VIAL IV PRN (17:27)
[2016-08-04] MEDS: SODIUM CHLORIDE 0.9% 1000ML 1,000 ML IV SCH ×2 (17:28→19:43)
[2016-08-04] MEDS: CEFAZOLIN IV 2,000 MG in DEXTROSE 5% 50ML 50 ML IV SCH (19:13)
[2016-08-04] MEDS: DEXAMETHASONE INJ 6 MG in SYRINGE 0 ML IV SCH (19:13)
[2016-08-04] MEDS ORDERED: NURSING VERBAL MED ORDER ONE (19:45)
[2016-08-04] MEDS: METOPROLOL SUCC 25MG EXT REL TAB PO SCH (21:00)
[2016-08-04] MEDS: DONEPEZIL HCL 10 MG TAB PO SCH (21:00)
[2016-08-04] MEDS: SIMVASTATIN 40 MG TAB PO SCH (21:00)
[2016-08-04] MEDS: FESOTERODINE 4 MG PO SCH (21:00)
[2016-08-04] MEDS: FLUOXETINE HCL 20 MG/5 ML PO SCH (21:00)
[2016-08-04] MEDS: PRESERVISION - NON-FORMULARY PATIENT'S OWN MED PO SCH (21:00)
[2016-08-04] MEDS: DOCUSATE SODIUM/SENNA 50/8.6MG TAB PO SCH (21:17)
[2016-08-04] MEDS: ASPIRIN 81 MG ECTAB PO SCH (21:17)
[2016-08-04] MEDS: BIMATOPROST 0.01% OP SOLN 2.5 ML BTL OPB SCH (21:17)
[2016-08-04] MEDS: POTASSIUM CHLORIDE 10 MEQ TABCR PO SCH (21:18)
[2016-08-05] VITALS (8 sets, daily range): BP systolic 93–130; BP diastolic 62–74; PULSE 99–107; TEMP 36.5–37; O2SAT 94–97; BMI 48.6
[2016-08-05] MEDS: DEXAMETHASONE INJ 6 MG in SYRINGE 0 ML IV SCH ×2 (00:16→08:44)
[2016-08-05] MEDS: INSULIN ASPART 100 UNITS/ML 3 ML PEN SC SCH ×6 (00:22→22:14)
[2016-08-05] MEDS: SODIUM CHLORIDE 0.9% 1000ML 1,000 ML IV SCH (00:24)
[2016-08-05] MEDS: CEFAZOLIN IV 2,000 MG in DEXTROSE 5% 50ML 50 ML IV SCH (02:33)
[2016-08-05] MEDS: LEVOTHYROXINE 75 MCG TAB PO SCH (05:41)
[2016-08-05 05:52] LABS: HEMATOCRIT 24.6 % (37-47); MEAN CELL VOLUME 97.2 fL (80-100); MEAN CORPUSCULAR HEMOGLOBIN 33.2 pg (25-34); MEAN CORPUSCULAR HGB CONC 34.1 g/dl (32-36); RED BLOOD COUNT 2.53 M/uL (4.2-5.4); WHITE BLOOD COUNT 5.51 K/uL (4.8-10.8)
[2016-08-05] MEDS ORDERED: DC PCA SCH (06:00)
[2016-08-05 06:01] LABS: MEAN PLATELET VOLUME 9.9 fL (7.4-10.4); PLATELET COUNT 90 K/uL (130-400)
[2016-08-05] MEDS ORDERED: HYDROmorphone INJ 1 MG/ML SYR IV PRN (06:01)
[2016-08-05 06:15] LABS: BUN/CREATININE RATIO 12.3 (10-20); CALCIUM 7.8 mg/dl (8.5-10.1); CREATININE 0.84 mg/dl (0.60-1.20); POTASSIUM 4.2 mmol/L (3.5-5.1)
[2016-08-05 06:18] LABS: COMPLETE YES; DOHLE BODIES 1+; IG% 0.4 %; LYMPH % 5.4 %; MONO % 5.3 %; NEUT % 88.9 %
[2016-08-05 06:28] LABS: BETA-HYDROXYBUTYRATE 3.48 mg/dL (0.2-2.81)
[2016-08-05] MEDS ORDERED: NURSING VERBAL MED ORDER ONE (07:15)
--- NOTE | 2016-08-05 07:42 | Anesthesiology Progress Note ---
Anesthesia Post Op Note Date & Time Aug 05, 2016 at 07:42 Vital Signs Vital Signs Past 12 Hours Date Time Temp Pulse Resp B/P Pulse Ox O2 Delivery O2 Flow Rate FiO2 08/05/16 07:05 36.6 99 20 116/71 97 Room Air 08/05/16 07:05 Room Air 08/05/16 03:47 36.6 105 20 97/62 97 Nasal Cannula 4.0 08/05/16 00:10 Nasal Cannula 4.0 08/04/16 23:33 36.7 103 20 90/61 99 Nasal Cannula 4.0 Notes Mental Status: alert / awake / arousable, participated in evaluation Pt Amnestic to Procedure: Yes Nausea / Vomiting: adequately controlled Pain: adequately controlled Airway Patency, RR, SpO2: stable & adequate BP & HR: stable & adequate Hydration State: stable & adequate Anesthetic Complications: no major complications apparent
[2016-08-05] MEDS: ONDANSETRON INJ 2 MG/ML 2 ML VIAL IV PRN (08:38)
[2016-08-05] MEDS: ALLOPURINOL 100 MG TAB PO SCH (08:48)
[2016-08-05] MEDS: PANTOprazole SOD 40 MG TAB PO SCH (08:48)
[2016-08-05] MEDS: FERROUS SULFATE 325 MG TAB PO SCH (08:48)
[2016-08-05] MEDS: POTASSIUM CHLORIDE 10 MEQ TABCR PO SCH ×2 (08:49→20:51)
[2016-08-05] MEDS: PRESERVISION - NON-FORMULARY PATIENT'S OWN MED PO SCH ×2 (08:49→20:48)
[2016-08-05] MEDS: FESOTERODINE 4 MG PO SCH ×2 (08:50→20:51)
[2016-08-05] MEDS ORDERED: INSULIN GLARGINE SOLOSTAR 100 UNITS/ML 3 ML PEN SC ONE ×2 (09:30)
--- NOTE | 2016-08-05 09:39 | Pharmacy Progress Note ---
Glycemic Control: Progress Nt Date of Service Aug 05, 2016. Scope Glycemic Pharmacist consulted by Dr. Sanchez on 08/04/16 for glycemic control and to write orders per [facility] inpatient glycemic control protocol. Objective Accuchecks BSG (last 24hrs): Test 08/04/16 11:38 08/04/16 13:43 08/04/16 16:57 08/04/16 20:47 Bedside Glucose 172 mg/dl (70-90) 214 mg/dl (70-90) 276 mg/dl (70-90) 301 mg/dl (70-90) Test 08/05/16 00:14 08/05/16 03:51 08/05/16 05:24 Bedside Glucose 316 mg/dl (70-90) 317 mg/dl (70-90) Random Glucose 309 mg/dl (70-99) Laboratory Data (last 24hrs) Test 08/05/16 05:24 Anion Gap 11.0 mmol/L BUN/Creatinine Ratio 12.3 Blood Urea Nitrogen 10 mg/dl Creatinine 0.84 mg/dl Potassium Level 4.2 mmol/L Sodium Level 141 mmol/L White Blood Count 5.51 K/uL Red Blood Count 2.53 M/uL Hemoglobin 8.4 g/dL Hematocrit 24.6 % Mean Corpuscular Volume 97.2 fL Mean Corpuscular Hemoglobin 33.2 pg Mean Corpuscular Hemoglobin Concent 34.1 g/dl Platelet Count 90 K/uL Mean Platelet Volume 9.9 fL Neutrophils (%) (Auto) 88.9 % Lymphocytes (%) (Auto) 5.4 % Monocytes (%) (Auto) 5.3 % Eosinophils (%) (Auto) 0.0 % Basophils (%) (Auto) 0.0 % Neutrophils # (Auto) 4.90 K/uL Lymphocytes # (Auto) 0.30 K/uL Monocytes # (Auto) 0.29 K/uL Eosinophils # (Auto) 0.00 K/uL Basophils # (Auto) 0.00 K/uL Recent Pertinent Medications Outpatient Anti-diabetic Regimen: * Lantus 30 units PM, Amaryl 2mg PM, Metformin 1gm BIDM * A1c = 8.0 % 07/01/16 Risk Factors for Insulin Resistance: * Steroids: DXM 6mg IV [id number] x 3 doses postop (last dose this AM) * Recent Surgery: Spine surgery, POD 1 * Diet: DM2 Assessment & Plan ASSESSMENT: 08/04/16: * 85yo T2DM female with adequate degree of outpatient control based on age/ comorbidities per recent A1c. * Pt is maintained on basal insulin + oral agents * Will hold oral agents for inpatient use and utilize weight based SQ basal bolus insulin regimen * May resume oral agents at discharge * Pt with hyperglycemia prior to surgery despite taking antidiabetic medications the evening prior to surgery. * Additional risk factors for insulin resistance/hyperglycemia include: high dose IV dexamethasone x 3 doses, stress, surgery * ADA & AACE recommend a goal blood sugar range 140-180 mg/dl for the majority of critically ill & non-critically ill patients. However, more stringent targets may be selected in individual cases. Will utilize slightly more aggressive goal range of 120-150mg/dl to facilitate healing post-operatively. 08/05/16: * Patient with steroid induced hyperglycemia POD1. * FBG this morning was >300 mg/dl. * Will provide additional Lantus this morning to cover long-acting steroid. Last dose of DXM was this AM so BSG control should start to improve. * Tighten Novolog parameters today. Add overnight Novolog check for potential overnight hyperglycemia. Will loosen novolog parameters tomorrow assuming steroid influence will lessen by then. * Will strive to attain BSG control quickly to aid in healing postoperatively. PLAN FOR INPATIENT GLYCEMIC CONTROL: * Hold outpatient oral diabetes medications - may resume at discharge * Basal insulin with LANTUS: 20 units x 1 now then start qHS per scale: * 8 units for BSG 100 mg/dl and below * 20 units for BSG 101 - 180 mg/dl * 30 units for BSG 181 mg/dl and above * Correctional Insulin with NOVOLOG per scale ACHS or Q6hrs while NPO * Goal Range: Low 120 mg/dL - High 150 mg/dL 08/05/16: * Correction Factor: 15 mg/dL/unit * Nutritional / Prandial insulin per carb ratio of 1 unit per 5 grams CHO consumed 08/06/16: * Correction Factor:20 mg/dL/unit * Nutritional / Prandial insulin per carb ratio of 1 unit per 7 grams CHO consumed * Additional overnight checks + coverage at 0200 for RTC hyperglycemia * Goal Range: Low 140 mg/dL - High 180 mg/dL * Correction Factor: 20 mg/dL/unit * Nutritional / Prandial insulin per carb ratio of 1 unit per 7 grams CHO consumed * Please note that the plan above was derived based on current level of insulin resistance and hospital stress. These recommendations are appropriate for inpatient admission only. Plan of care upon discharge will need to be reassessed to avoid potential outpatient hypo/hyperglycemia. Thank you.
--- NOTE | 2016-08-05 10:52 | Hospitalist Progress Note ---
Hospitalist Progress Note Date of Service Aug 05, 2016. (Milvia Aaron, CRYSTAL) Subjective Pt evaluation today including: conversation w/ patient, physical exam, chart review, lab review, review of studies, review of inpatient medication list Pain: Moderate, well controlled PO Intake: Good Voiding: walsh catheter in place The patient was seen and examined this morning. Pt reports doing well. She has back pain when sitting forward, but once up sitting she feels better. Tolerating diet, + flatus, no bowel movement yet but feels like will have one soon. Pt has walsh cath in place, has been ambulating in the room with assistance. Denies lightheadedness, dizziness, palpitations, shortness of breath. All Other Systems: Reviewed and Negative (other than HPI) (Milvia Aaron, CRYSTAL) Objective Vital Signs Date Time Temp Pulse Resp B/P Pulse Ox O2 Delivery O2 Flow Rate FiO2 08/05/16 07:54 Room Air 08/05/16 07:05 36.6 99 20 116/71 97 Room Air 08/05/16 07:05 Room Air 08/05/16 03:47 36.6 105 20 97/62 97 Nasal Cannula 4.0 08/05/16 00:10 Nasal Cannula 4.0 08/04/16 23:33 36.7 103 20 90/61 99 Nasal Cannula 4.0 08/04/16 18:50 35.6 65 18 111/74 97 Nasal Cannula 4.0 08/04/16 18:22 36.2 92 16 149/76 08/04/16 17:30 34.7 95 18 114/76 97 Nasal Cannula 4.0 08/04/16 16:53 91 18 110/69 95 Nasal Cannula 4.0 08/04/16 15:30 97 Nasal Cannula 4.0 08/04/16 15:30 Nasal Cannula 4.0 08/04/16 15:30 36.2 92 16 149/76 97 Nasal Cannula 4.0 08/04/16 14:27 36.5 98 17 161/83 94 Nasal Cannula 4 08/04/16 14:15 104 17 164/84 94 Mask 10 08/04/16 14:05 108 21 152/91 95 Mask 10 08/04/16 13:55 98 15 148/66 94 Mask 10 08/04/16 13:45 99 16 128/72 94 Mask 10 08/04/16 13:37 36.2 97 18 114/68 97 Mask 10 08/04/16 13:28 36.2 95 20 125/73 96 Mask 15 (Milvia Aaron PA-C) Physical Exam General Appearance: WD/WN, no apparent distress, + obese Eyes: PERRL, EOMI ENT: pharynx normal, + pertinent finding (Hard of hearing slightly) Neck: supple, no JVD Respiratory/Chest: lungs clear, normal breath sounds, no accessory muscle use Cardiovascular: regular rate, rhythm, no JVD Abdomen: non tender, soft, + pertinent finding (Obese with pannis. + hypoactive bowel sounds but difficult to auscultate due to body habitus. ) Extremities: non-tender, no pedal edema, no calf tenderness Neurologic/Psychiatric: alert, normal mood/affect, oriented x 3 Skin: normal color, warm/dry Notes: Back: dressing over lower back is c/d/i, Surrounding skin is not erythematous, + ELOISA drain in place with ~100 mL out this morning. (Milvia Aaron, NEGRA-C) Laboratory Results Last 24 Hours Test 08/04/16 11:38 08/04/16 12:49 08/04/16 13:43 08/04/16 16:57 Bedside Glucose 172 mg/dl 214 mg/dl 276 mg/dl Hemoglobin 9.2 g/dL Hematocrit 26.5 % Test 08/04/16 20:47 08/05/16 00:14 08/05/16 03:51 08/05/16 05:24 Bedside Glucose 301 mg/dl 316 mg/dl 317 mg/dl White Blood Count 5.51 K/uL Red Blood Count 2.53 M/uL Hemoglobin 8.4 g/dL Hematocrit 24.6 % Mean Corpuscular Volume 97.2 fL Mean Corpuscular Hemoglobin 33.2 pg Mean Corpuscular Hemoglobin Concent 34.1 g/dl Platelet Count 90 K/uL Mean Platelet Volume 9.9 fL Neutrophils (%) (Auto) 88.9 % Lymphocytes (%) (Auto) 5.4 % Monocytes (%) (Auto) 5.3 % Eosinophils (%) (Auto) 0.0 % Basophils (%) (Auto) 0.0 % Neutrophils # (Auto) 4.90 K/uL Lymphocytes # (Auto) 0.30 K/uL Monocytes # (Auto) 0.29 K/uL Eosinophils # (Auto) 0.00 K/uL Basophils # (Auto) 0.00 K/uL RDW Standard Deviation 52.0 fL RDW Coefficient of Variation 14.7 % Immature Granulocyte % (Auto) 0.4 % Immature Granulocyte # (Auto) 0.02 K/uL Dohle Bodies 1+ Sodium Level 141 mmol/L Potassium Level 4.2 mmol/L Chloride Level 107 mmol/L Carbon Dioxide Level 23 mmol/L Anion Gap 11.0 mmol/L Blood Urea Nitrogen 10 mg/dl Creatinine 0.84 mg/dl Est Creatinine Clear Calc Drug Dose 50.3 ml/min Estimated GFR () 74.0 Estimated GFR (Non- 63.8 BUN/Creatinine Ratio 12.3 Random Glucose 309 mg/dl Calcium Level 7.8 mg/dl Beta-Hydroxybutyric Acid 3.48 mg/dL (Milvia Aaron, CRYSTAL) Assessment and Plan 85 yo F s/p acute blood loss anemia Underwent spinal surgery by Dr. Marshall on 08/04/15 1. Lumbar decompression, medial facetectomy, and foraminotomy, L2-L3, L3-L4 , L4-L5, and L5-S1. 2. Posterior spinal fusion, L3-L4, L4-L5, and L5-S1. 3. Bilateral SI joint fusion. 4. Placement of posterior segmental instrumentation using Medicrea rods and screws, L3-S1 as well as bilateral iliac bolts. 5. Interbody fusion, L5-S1. 6. Placement of PEEK cage 11 x 22 mm at L5-S1. 7. Placement of locally harvested morselized autograft in the posterior gutters. 8. Placement of Infuse collagen sponge combined with Mastergraft in the posterior lateral gutters and Kamila bone grafting in the interbody space. - related to surgery - currently overall hemodynamically acceptable - slightly tachycardic with HR= low 100s, but BP up. follow clinically - Hgb dropped from 12 to 8.4 today, will recheck at noon, possible will need transfusion if drops below 8 because of such significant blood loss DM -insulin orders appear very appropriate as starting point - with steroids might need tighter dosing but will have to follow for now HTN -not on SIRIA/ARB or diuretic based on chart - continue current meds, no hypotension DVT ppx: -per orthopedics CODE STATUS: Full Code Disposition: From home,plans for acute rehab stay when ready per ortho (Milvia Aaron, CRYSTAL) PA Physician Supervision Note: I interviewed and examined the patient. Discussed with Milvia Aaron PAC and agree with findings and plan as documented in the note. Any exceptions or clarifications are listed here: None Pt s/p lumbar surgery, has stable DM and HTN vss doing well post op continue to follow for low bp or anemia Documented By: Drew Stone (Drew Stone M.D.)
[2016-08-05 12:43] LABS: HEMATOCRIT 26.4 % (37-47)
--- NOTE | 2016-08-05 15:36 | PROGRESS NOTE ---
DATE: 08/05/2016 Postop day #1. Back pain is controlled. Leg pain improved. Vital signs show T-max of 36.7. ELOISA drained 310 mL today. Hematocrit stable at 26.4. On exam, she is in a chair at bedside, demonstrates good strength to test. She appears comfortable. ASSESSMENT: Status post multilevel lumbar decompression fusion. PLAN: At this time we will continue to advance physical therapy, her bowel regimen, and plan for transfer to rehab facility hopefully in the next day or so.
[2016-08-05] MEDS ORDERED: INSULIN HUMAN REGULAR PER UNIT 5 UNITS in SYRINGE 4.95 ML IV SCH (15:45)
[2016-08-05] MEDS: OXYCODONE HCL IR 5 MG TAB (IMMEDIATE RELEASE) PO PRN (17:39)
[2016-08-05] MEDS: BIMATOPROST 0.01% OP SOLN 2.5 ML BTL OPB SCH (20:47)
[2016-08-05] MEDS: METOPROLOL SUCC 25MG EXT REL TAB PO SCH (21:00)
[2016-08-05] MEDS: ASPIRIN 81 MG ECTAB PO SCH (22:09)
[2016-08-05] MEDS: SIMVASTATIN 40 MG TAB PO SCH (22:09)
[2016-08-05] MEDS: DONEPEZIL HCL 10 MG TAB PO SCH (22:09)
[2016-08-05] MEDS: DOCUSATE SODIUM/SENNA 50/8.6MG TAB PO SCH (22:10)
[2016-08-05] MEDS: INSULIN GLARGINE SOLOSTAR 100 UNITS/ML 3 ML PEN SC SCH (22:12)
[2016-08-05] MEDS: FLUOXETINE HCL 20 MG/5 ML PO SCH (22:18)
[2016-08-06] MEDS ORDERED: INSULIN ASPART 100 UNITS/ML 3 ML PEN SC SCH (02:00)
[2016-08-06] MEDS ORDERED: POLYETHYLENE (MIRALAX) 17 GM PACK PO SCH (06:00)
[2016-08-06] MEDS: LEVOTHYROXINE 75 MCG TAB PO SCH (06:03)
[2016-08-06] MEDS ORDERED: NURSING VERBAL MED ORDER ONE (06:45)
[2016-08-06 07:20] VITALS: BP 111/69; PULSE 109; TEMP 37; O2SAT 98
--- NOTE | 2016-08-06 07:24 | Hospitalist Progress Note ---
Hospitalist Progress Note Date of Service Aug 06, 2016. Subjective Pt evaluation today including: conversation w/ patient, conversation w/ family , physical exam, chart review, lab review, review of studies, review of inpatient medication list Pain: Mild PO Intake: Good Voiding: no voiding problems The patient was seen and examined this morning. Her and daughter are present in the room. Pt reports she is more sore today, but was up walking several laps in the unit yesterday without any difficulty. She has some pain still with sitting forward after being in the same position for a while. She is tolerating a diet without difficulty, no nausea or abdominal pain, Last BM was yesterday. All Other Systems: Reviewed and Negative (other than listed above) Objective Vital Signs Date Time Temp Pulse Resp B/P Pulse Ox O2 Delivery O2 Flow Rate FiO2 08/05/16 23:25 CPAP 08/05/16 23:19 36.5 105 20 93/63 97 CPAP 08/05/16 22:00 103 130/73 08/05/16 20:50 37.0 104 104/62 08/05/16 20:15 Room Air 08/05/16 15:16 36.7 105 16 97/62 96 Room Air 08/05/16 13:33 107 94 08/05/16 11:24 36.7 99 16 106/68 95 Room Air 08/05/16 07:54 Room Air Physical Exam General Appearance: WD/WN, no apparent distress, + obese Eyes: PERRL, + pertinent finding (+ poor vision) ENT: hearing grossly normal, pharynx normal Neck: supple, no JVD Respiratory/Chest: lungs clear, normal breath sounds, no respiratory distress, no accessory muscle use Cardiovascular: regular rate, rhythm, no murmur Abdomen: normal bowel sounds, soft, + pertinent finding (obese with + pannis) Extremities: no pedal edema, no calf tenderness, + pertinent finding (+ ecchymosis over bilateral forearms) Neurologic/Psychiatric: alert, normal mood/affect, oriented x 3 Skin: normal color, warm/dry Notes: Back: bandage over lumbar spine c/d/i. ELOISA drain present with bloody outs. Laboratory Results Last 24 Hours Test 08/05/16 08:01 08/05/16 11:19 08/05/16 11:44 08/05/16 12:28 Bedside Glucose 323 mg/dl 371 mg/dl 367 mg/dl Hemoglobin 9.0 g/dL Hematocrit 26.4 % Test 08/05/16 15:31 08/05/16 16:39 08/05/16 20:33 08/06/16 02:11 Bedside Glucose 337 mg/dl 274 mg/dl 240 mg/dl 151 mg/dl Assessment and Plan 85 yo F s/p acute blood loss anemia Underwent spinal surgery by Dr. Marshall on 08/04/15 1. Lumbar decompression, medial facetectomy, and foraminotomy, L2-L3, L3-L4 , L4-L5, and L5-S1. 2. Posterior spinal fusion, L3-L4, L4-L5, and L5-S1. 3. Bilateral SI joint fusion. 4. Placement of posterior segmental instrumentation using Medicrea rods and screws, L3-S1 as well as bilateral iliac bolts. 5. Interbody fusion, L5-S1. 6. Placement of PEEK cage 11 x 22 mm at L5-S1. 7. Placement of locally harvested morselized autograft in the posterior gutters. 8. Placement of Infuse collagen sponge combined with Mastergraft in the posterior lateral gutters and Kamila bone grafting in the interbody space. - related to surgery - currently overall hemodynamically acceptable - slightly tachycardic with HR= low 100s, but BP up. follow clinically - Hgb dropped from 12 to 8.4 on 08/05/16- recheck = 9.0, appears to have stabilized - possible will need transfusion if drops below 8 because of such significant blood loss - ELOISA drain in place, outs have significantly decreased from 200s-300mL yesterday to ~85 mL out since 2400. DM -ISS with accuchecks - remain around the 200s to 150s, and are better controlled today compared to yesterday. Steroids are likely wearing off - Uses lantus at home, religious educator visited the patient today HTN -not on SIRIA/ARB or diuretic based on chart - continue current meds, no hypotension - cont metoprolol succinate 25 mg QHS Hyperlipidemia - Cont atorvastatin 40 mg daily Hypothyroidism - Cont detective captain levothyroxine 100 mcg daily DVT ppx: -per orthopedics CODE STATUS: Full Code Disposition: From home,plans for acute rehab stay when ready per ortho
[2016-08-06] MEDS: FERROUS SULFATE 325 MG TAB PO SCH (08:49)
[2016-08-06] MEDS: OXYCODONE HCL IR 5 MG TAB (IMMEDIATE RELEASE) PO PRN ×3 (08:49→22:22)
[2016-08-06] MEDS: PRESERVISION - NON-FORMULARY PATIENT'S OWN MED PO SCH ×2 (08:50→21:08)
[2016-08-06] MEDS: POTASSIUM CHLORIDE 10 MEQ TABCR PO SCH ×2 (08:50→20:49)
[2016-08-06] MEDS: PANTOprazole SOD 40 MG TAB PO SCH (08:51)
[2016-08-06] MEDS: ALLOPURINOL 100 MG TAB PO SCH (08:52)
[2016-08-06] MEDS: FESOTERODINE 4 MG PO SCH ×2 (08:52→20:52)
[2016-08-06] MEDS: INSULIN ASPART 100 UNITS/ML 3 ML PEN SC SCH ×4 (09:00→20:59)
--- NOTE | 2016-08-06 09:59 | Pharmacy Progress Note ---
Glycemic Control: Progress Nt Date of Service Aug 06, 2016. Scope Glycemic Pharmacist consulted by Dr Sanchez on 08/04/16 for glycemic control and to write orders per [facility] inpatient glycemic control protocol. Objective Accuchecks BSG (last 24hrs): Test 08/05/16 11:19 08/05/16 11:44 08/05/16 15:31 08/05/16 16:39 Bedside Glucose 371 mg/dl (70-90) 367 mg/dl (70-90) 337 mg/dl (70-90) 274 mg/dl (70-90) Test 08/05/16 20:33 08/06/16 02:11 08/06/16 07:37 Bedside Glucose 240 mg/dl (70-90) 151 mg/dl (70-90) 166 mg/dl (70-90) Recent Pertinent Medications Outpatient Anti-diabetic Regimen: * Lantus 30 units PM, Amaryl 2mg PM, Metformin 1gm BIDM * A1c = 8.0 % 07/01/16 The patient is currently receiving: * Basal insulin: Lantus 20 units X 1 given yesterday AM due to severe hyperglycemia + home dose of Lantus 30 units HS * Correctional Insulin: Novolog Correction per scale ACHS Goal Range: Low 120 mg/dL - High 150 mg/dL Correction Factor: 20 mg/dL/unit * Prandial insulin: Per carb ratio of 1 unit per 7 grams CHO consumed * Oral Agents: on hold Risk Factors for Insulin Resistance: * Steroids: DXM 6mg IV [id number] x 3 doses postop (last dose 08/05 AM) * Recent Surgery: Spine surgery, POD 2 * Diet: DM2 Assessment & Plan ASSESSMENT: 08/04/16: * 85yo T2DM female with adequate degree of outpatient control based on age/ comorbidities per recent A1c. * Pt is maintained on basal insulin + oral agents * Will hold oral agents for inpatient use and utilize weight based SQ basal bolus insulin regimen * May resume oral agents at discharge * Pt with hyperglycemia prior to surgery despite taking antidiabetic medications the evening prior to surgery. * Additional risk factors for insulin resistance/hyperglycemia include: high dose IV dexamethasone x 3 doses, stress, surgery * ADA & AACE recommend a goal blood sugar range 140-180 mg/dl for the majority of critically ill & non-critically ill patients. However, more stringent targets may be selected in individual cases. Will utilize slightly more aggressive goal range of 120-150mg/dl to facilitate healing post-operatively. 08/05/16: * Patient with steroid induced hyperglycemia POD1. * FBG this morning was >300 mg/dl. * Will provide additional Lantus this morning to cover long-acting steroid. Last dose of DXM was this AM so BSG control should start to improve. * Tighten Novolog parameters today. Add overnight Novolog check for potential overnight hyperglycemia. Will loosen novolog parameters tomorrow assuming steroid influence will lessen by then. * Will strive to attain BSG control quickly to aid in healing postoperatively. 08/06/16: * Patient received a total of ~120 units of SC insulin yesterday plus 5 units Regular IV bolus X 1 * BSGs have finally started to trend to goal with fasting 166 mg/dL this AM * I will not re-dose Lantus this AM but maintain current HS scale created yesterday * I fear with the additional Lantus dose given yesterday morning that patient could have a low in the next 24-48 hours * Continue to monitor closely * Maintain Novolog for now, if prandial BSGs trend <140 mg/dL- will loosen tomorrow PLAN FOR INPATIENT GLYCEMIC CONTROL: * Hold outpatient oral diabetes medications - may resume at discharge * Basal insulin with LANTUS qHS per scale: * 8 units for BSG 100 mg/dl and below * 20 units for BSG 101 - 180 mg/dl * 30 units for BSG 181 mg/dl and above * Correctional Insulin with NOVOLOG per scale ACHS or Q6hrs while NPO * Goal Range: Low 120 mg/dL - High 150 mg/dL * Correction Factor: 20 mg/dL/unit * Nutritional / Prandial insulin per carb ratio of 1 unit per 7 grams CHO consumed * Please note that the plan above was derived based on current level of insulin resistance and hospital stress. These recommendations are appropriate for inpatient admission only. Plan of care upon discharge will need to be reassessed to avoid potential outpatient hypo/hyperglycemia. Thank you.
[2016-08-06 13:32] VITALS: Ht 144.8 cm; Wt 101.8 kg
--- NOTE | 2016-08-06 14:34 | PROGRESS NOTE ---
DATE: 08/06/2016 DATE: 08/06/2016. SUBJECTIVE: Postop day 2. Back pain controlled. Leg pain improved. Vital signs substantially. T-max 37.0. ELOISA drained 85 mL today. Hematocrit 26.4. OBJECTIVE: On exam she is in chair at bedside. Has good strength to testing and appears comfortable. ASSESSMENT: Status post multilevel lumbar decompression and fusion. PLAN: At this time, will continue physical therapy, advance her bowel regimen and anticipate if possible transfer to [facility] this weekend.
[2016-08-06 15:55] VITALS: BP 110/69; PULSE 114; TEMP 36.8; O2SAT 95
[2016-08-06 16:07] VITALS: PULSE 100
[2016-08-06 16:20] VITALS: O2SAT 95
[2016-08-06 20:28] VITALS: BP 118/61; PULSE 119; TEMP 36.8; O2SAT 96
[2016-08-06] MEDS: BIMATOPROST 0.01% OP SOLN 2.5 ML BTL OPB SCH (20:47)
[2016-08-06] MEDS: DONEPEZIL HCL 10 MG TAB PO SCH (20:48)
[2016-08-06] MEDS: ASPIRIN 81 MG ECTAB PO SCH (20:48)
[2016-08-06] MEDS: DOCUSATE SODIUM/SENNA 50/8.6MG TAB PO SCH (20:51)
[2016-08-06] MEDS: METOPROLOL SUCC 25MG EXT REL TAB PO SCH (20:51)
[2016-08-06] MEDS: FLUOXETINE HCL 20 MG/5 ML PO SCH (20:51)
[2016-08-06] MEDS: SIMVASTATIN 40 MG TAB PO SCH (20:52)
[2016-08-06] MEDS: INSULIN GLARGINE SOLOSTAR 100 UNITS/ML 3 ML PEN SC SCH (20:57)
[2016-08-07] VITALS (10 sets, daily range): BP systolic 105–141; BP diastolic 67–83; PULSE 88–105; TEMP 36.5–38.1; O2SAT 94–98
[2016-08-07] MEDS: LEVOTHYROXINE 75 MCG TAB PO SCH (05:43)
--- NOTE | 2016-08-07 08:25 | Progress Note ---
Subjective Date of Service: Aug 07, 2016. Subjective pt is doing well but has elevated blood sugars, will need to continue to correct Problem List Medical Problems: (1) Hyperglycemia due to type 2 diabetes mellitus Status: Acute (2) Shoulder pain, acute Status: Acute (3) TIA (transient ischemic attack) Status: Acute Review of Systems Constitutional: No chills, No fever ENT: No hearing loss, No sore throat Respiratory: No cough, No shortness of breath Cardiac: No chest pain, No edema Abdomen: No nausea, No pain, No vomiting Musculoskeletal: + joint pain, + muscle pain Neurologic: No memory loss, No weakness Psychiatric: No anhedonism, No depression symptoms Objective Vital Signs Date Time Temp Pulse Resp B/P Pulse Ox O2 Delivery O2 Flow Rate FiO2 08/07/16 08:07 37.2 96 22 111/72 98 Room Air 08/07/16 07:15 Room Air 08/07/16 00:30 Room Air CPAP 08/07/16 00:30 104 08/07/16 00:05 36.5 105 17 118/78 94 CPAP 08/06/16 20:28 36.8 119 20 118/61 96 Room Air 08/06/16 16:20 95 Room Air 08/06/16 16:07 100 08/06/16 15:55 36.8 114 20 110/69 95 Room Air Physical Exam General Appearance: WD/WN, + mild distress Neck: supple, no JVD Respiratory/Chest: chest non-tender, lungs clear, normal breath sounds Cardiovascular: regular rate, rhythm, no murmur Abdomen: normal bowel sounds, non tender, soft Extremities: no pedal edema, no calf tenderness Neurologic/Psychiatric: alert, oriented x 3 Laboratory Results Last 24 Hours Test 08/06/16 11:36 08/06/16 16:59 08/06/16 20:55 Bedside Glucose 253 mg/dl 191 mg/dl 267 mg/dl Assessment and Plan 85 F post op spine surgery with elevated blood glucose influenced by nico operative stressors, steroids, and stopping home medications since is eating well restart glimeparide and metformin, keeping lantus and using ssi without carb coverage as we are using oral meds Documented By: Drew Stone
[2016-08-07] MEDS: FERROUS SULFATE 325 MG TAB PO SCH (08:44)
[2016-08-07] MEDS: PANTOprazole SOD 40 MG TAB PO SCH (08:45)
[2016-08-07] MEDS: POTASSIUM CHLORIDE 10 MEQ TABCR PO SCH ×2 (08:45→21:36)
[2016-08-07] MEDS: ALLOPURINOL 100 MG TAB PO SCH (08:45)
[2016-08-07] MEDS: FESOTERODINE 4 MG PO SCH ×2 (08:45→21:40)
[2016-08-07] MEDS: PRESERVISION - NON-FORMULARY PATIENT'S OWN MED PO SCH ×2 (08:45→21:00)
[2016-08-07] MEDS: INSULIN ASPART 100 UNITS/ML 3 ML PEN SC SCH ×4 (08:51→21:43)
[2016-08-07] MEDS: METFORMIN HCL 500 MG TAB PO SCH ×2 (08:52→19:41)
[2016-08-07] MEDS ORDERED: GLIMEPIRIDE 2 MG TAB PO ONE (09:00)
[2016-08-07] MEDS ORDERED: RXC5 PO (09:40)
--- NOTE | 2016-08-07 09:40 | Discharge Instructions ---
Discharge Instructions Admission Reason for Admission: Lumbar Stenosis With Neurogenic Claudication Discharge Discharge Diagnosis / Problem: stenosis Discharge Goals Goal(s): Improve function Activity Recommendations Activity Limitations: per Instructions/Follow-up section . Instructions / Follow-Up Instructions / Follow-Up ACTIVITY RECOMMENDATIONS: SELF CARE INSTRUCTIONS AFTER THORACIC/LUMBAR FUSIONS 1. You may walk to your tolerance. It is good exercise for your legs and back. Expect some back and intermittent leg aches and pains. 2. You may perform "counter-top" level activities (make a sandwich, edith with a project, etc.). 3. No bending or lifting of more than 10 pounds or back twisting of any nature (roll like a log when turning in bed). 4. You may ride in a car for 20-30 minutes at a time. No driving until after your first visit with your doctor. 5. Frequent changes of position and restricting sitting to 30 minutes at a time will help limit the amount of back spasms and stiffness you may experience. 6. You may discontinue the use of ambulatory aids (cane, crutches, etc.) once your strength and confidence allow. 7. You may regional coordinator the shower and let water strike your incision when you arrive home at least once daily. Do not take a tub bath, sit in a hot tub or go into a swimming pool until after your first recheck in the office. SPECIAL CARE INSTRUCTIONS: VERY IMPORTANT TO READ AND REVIEW A. Your surgical incision has been closed with a cosmetic suture under the skin that will dissolve in about 6 weeks. In 14 days, you can use a pair of clean scissors and cut the suture that is left outside of the skin at the ends of your incision. 1. The small skin tapes can be removed 7 days after surgery if they have not fallen off by that point. 2. You may keep the wound open to air as much as possible to promote healing after post-op day number 5 unless told otherwise by your doctor. 3. If you think the wound looks like it is becoming infected (redness or worsening drainage) and/or you are experiencing fever, chill or worsening back pain and muscle spasms, contact the office so that we may evaluate you as soon as possible. B. Complications are uncommon, but please contact us if you have any signs or symptoms of: 1. wound infection (fever higher than 102.5 degrees F, redness, separation of wound, drainage, or increasing pain from the incision) 2. blood clots in legs (pain, swelling, redness and warmth in legs) 3. urinary tract infection (fever higher than 102.5 degrees F, burning upon urination or increased frequency of urination) 4. nerve problems (inability to walk on your toes or heels, numbness, loss of bowel or bladder control) 5. any other symptoms that concern you C. Please call the office at if you have any concerns or questions about your operation or recovery. D. No smoking! Smoking drastically decreases the chance of a solid fusion. E. Do not take any anti-inflammatory medications (Indocin, Advil, Motrin, Aspirin, Naprosyn, etc.) as these may inhibit the chance of a solid fusion. Tylenol is okay to take for pain. MANAGING PAIN AFTER SPINAL SURGERY 1. Narcotic medication is intended for short-term use and will be provided for surgical pain. Surgical pain usually lasts for a period of 4-6 weeks. Narcotic medication includes Percocet, Vicodin, Darvocet, Tylenol #3 or Lortab. 2. Longer-term pain is more appropriately treated with non-narcotic medication such as Tylenol ES. 3. Muscle spasm is not appropriately treated with narcotics. Muscle relaxers such as Soma, Flexeril or Skelaxin can be used along with Tylenol ES. 4. Remember that we all live with some "aches and pains". This is not unusual or uncommon after an injury or as we get older. a. Back pain is expected and may include muscle spasms for 4 to 6 weeks after surgery. The pain should gradually improve. If the pain worsens for no apparent reason, please contact the office. b. Intermittent leg pain may also be experienced and should not be concerned about unless it worsens for no apparent reason. If so, please contact the office. 5. We will provide appropriate medication within the normal guidelines of their prescribed use. We will also be very cautious and aware of potential abuse and extended duration of patients' medication needs. a. Pain medications are for your comfort and to assist with sleep and rest so that the tissue can heal. They are not provided in order to return to normal activity and should not be used through the day. To do so or worsening pain at night can result from ongoing tissue damage and development of tolerance to the prescribed medicine. 6. Please allow 2-3 days to process refills. Prescriptions will not be mailed but must be picked up at the office. FOLLOW UP VISIT: Keep your scheduled follow-up appointment. Any questions, please call the office at . Current Hospital Diet Patient's current hospital diet: Diabetes Type 2 Diet Discharge Diet Recommended Diet: Regular Diet Procedures Procedures Performed: decompression fusion Pending Studies Studies pending at discharge: no Laboratory Results Hemoglobin A1c Test 07/01/16 11:24 Range/Units Estimated Average Glucose 183 mg/dl Hemoglobin A1c 8.0 H 4.5-5.6 % Medical Emergencies . Who to Call and When: Medical Emergencies: If at any time you feel your situation is an emergency, please call 911 immediately. . Non-Emergent Contact Non-Emergency issues call your: Primary Care Provider . "Provider Documentation" section prepared by David Sanchez. VTE Core Measure Inpt VTE Proph given/why not?: Gilbert Colbert, MARIA LUISA's
[2016-08-07 09:48] LABS: MEAN CELL VOLUME 101.9 fL (80-100); MEAN CORPUSCULAR HGB CONC 33.3 g/dl (32-36); PLATELET COUNT 155 K/uL (130-400); RED BLOOD COUNT 2.65 M/uL (4.2-5.4); WHITE BLOOD COUNT 7.75 K/uL (4.8-10.8)
[2016-08-07 10:12] LABS: BUN/CREATININE RATIO 19.2 (10-20); CALCIUM 8.3 mg/dl (8.5-10.1); CREATININE 0.92 mg/dl (0.60-1.20); POTASSIUM 4.3 mmol/L (3.5-5.1)
[2016-08-07 10:22] LABS: BETA-HYDROXYBUTYRATE 1.98 mg/dL (0.2-2.81)
--- NOTE | 2016-08-07 10:32 | PROGRESS NOTE ---
DATE: 08/07/2016 Post day 3. Back pain controlled. Leg pain improving. Vital signs stable. T-max 37.2. ELOISA drained 30 mL today. Hematocrit stable at 27.0. On exam, she is in chair at bedside. Has good strength to testing. ASSESSMENT: Status post multilevel lumbar decompression and fusion. PLAN: At this time, we anticipate transfer to [facility] or home in the next day or so, hopefully [facility] Tuesday. The patient understands and agrees.
[2016-08-07] MEDS: ONDANSETRON INJ 2 MG/ML 2 ML VIAL IV PRN (16:38)
[2016-08-07] MEDS: GLIMEPIRIDE 2 MG TAB PO SCH (19:41)
[2016-08-07] MEDS: FLUOXETINE HCL 20 MG/5 ML PO SCH (21:00)
[2016-08-07] MEDS: SIMVASTATIN 40 MG TAB PO SCH (21:00)
[2016-08-07] MEDS: DONEPEZIL HCL 10 MG TAB PO SCH (21:00)
[2016-08-07] MEDS: BIMATOPROST 0.01% OP SOLN 2.5 ML BTL OPB SCH (21:35)
[2016-08-07] MEDS: ASPIRIN 81 MG ECTAB PO SCH (21:37)
[2016-08-07] MEDS: DOCUSATE SODIUM/SENNA 50/8.6MG TAB PO SCH (21:38)
[2016-08-07] MEDS: METOPROLOL SUCC 25MG EXT REL TAB PO SCH (21:40)
[2016-08-07] MEDS: INSULIN GLARGINE SOLOSTAR 100 UNITS/ML 3 ML PEN SC SCH (21:44)
[2016-08-08] MEDS: LEVOTHYROXINE 75 MCG TAB PO SCH (05:34)
[2016-08-08 07:05] VITALS: BP 137/81; PULSE 97; TEMP 36.6; O2SAT 95
[2016-08-08] MEDS: METFORMIN HCL 500 MG TAB PO SCH ×2 (08:54→18:07)
[2016-08-08] MEDS: FERROUS SULFATE 325 MG TAB PO SCH (08:54)
[2016-08-08] MEDS: ALLOPURINOL 100 MG TAB PO SCH (08:54)
[2016-08-08] MEDS: POTASSIUM CHLORIDE 10 MEQ TABCR PO SCH ×2 (08:54→21:08)
[2016-08-08] MEDS: PRESERVISION - NON-FORMULARY PATIENT'S OWN MED PO SCH ×2 (08:55→21:09)
[2016-08-08] MEDS: PANTOprazole SOD 40 MG TAB PO SCH (08:55)
[2016-08-08] MEDS: FESOTERODINE 4 MG PO SCH ×2 (08:55→21:09)
[2016-08-08] MEDS: INSULIN ASPART 100 UNITS/ML 3 ML PEN SC SCH ×4 (09:01→21:22)
--- NOTE | 2016-08-08 11:07 | DISCHARGE SUMMARY ---
PRINCIPAL DIAGNOSIS: Spinal stenosis. HOSPITAL COURSE FOLLOWS: On 08/04, the patient underwent multilevel lumbar decompression and fusion, tolerated this well and taken to the orthopedic floor postoperatively. Postop day #1, she was up and ambulatory, progressed throughout the week. ELOISA drain decreased appropriately. Subsequently on 08/08, she was discharged to [facility]. Discharge orders and instructions found in the chart for review.
[2016-08-08] MEDS: ONDANSETRON INJ 2 MG/ML 2 ML VIAL IV PRN (11:45)
[2016-08-08 11:51] VITALS: BP 137/81; PULSE 97; TEMP 36.6; O2SAT 95
[2016-08-08 15:29] VITALS: BP 137/57; PULSE 95; TEMP 36.8; O2SAT 98
[2016-08-08] MEDS: GLIMEPIRIDE 2 MG TAB PO SCH (18:07)
[2016-08-08 21:00] VITALS: BP 137/76; PULSE 94
[2016-08-08] MEDS: SIMVASTATIN 40 MG TAB PO SCH (21:08)
[2016-08-08] MEDS: DOCUSATE SODIUM/SENNA 50/8.6MG TAB PO SCH (21:08)
[2016-08-08] MEDS: ASPIRIN 81 MG ECTAB PO SCH (21:08)
[2016-08-08] MEDS: METOPROLOL SUCC 25MG EXT REL TAB PO SCH (21:08)
[2016-08-08] MEDS: FLUOXETINE HCL 20 MG/5 ML PO SCH (21:08)
[2016-08-08] MEDS: DONEPEZIL HCL 10 MG TAB PO SCH (21:08)
[2016-08-08] MEDS: BIMATOPROST 0.01% OP SOLN 2.5 ML BTL OPB SCH (21:10)
[2016-08-08] MEDS: INSULIN GLARGINE SOLOSTAR 100 UNITS/ML 3 ML PEN SC SCH (21:22)
[2016-08-08 22:53] VITALS: BP 117/73; PULSE 96; TEMP 36.6; O2SAT 96
[2016-08-09] MEDS: LEVOTHYROXINE 75 MCG TAB PO SCH (06:08)
[2016-08-09 06:16] VITALS: BP 123/73; PULSE 89; TEMP 36.8; O2SAT 95
[2016-08-09] MEDS: INSULIN ASPART 100 UNITS/ML 3 ML PEN SC SCH ×2 (07:21→11:48)
[2016-08-09] MEDS: METFORMIN HCL 500 MG TAB PO SCH (07:23)
[2016-08-09] MEDS: FERROUS SULFATE 325 MG TAB PO SCH (07:24)
[2016-08-09] MEDS: POTASSIUM CHLORIDE 10 MEQ TABCR PO SCH (07:24)
[2016-08-09] MEDS: PANTOprazole SOD 40 MG TAB PO SCH (07:25)
[2016-08-09] MEDS: FESOTERODINE 4 MG PO SCH (07:25)
[2016-08-09] MEDS: PRESERVISION - NON-FORMULARY PATIENT'S OWN MED PO SCH (07:25)
[2016-08-09] MEDS: ALLOPURINOL 100 MG TAB PO SCH (07:26)
[2016-08-09 08:02] VITALS: BP 125/75; PULSE 88; TEMP 36.9; O2SAT 96
[2016-08-09 09:42] VITALS: O2SAT 96
--- NOTE | 2016-08-09 15:12 | DISCHARGE SUMMARY ---
PRINCIPAL DIAGNOSIS: Spinal stenosis. HOSPITAL COURSE FOLLOWS: On August 04, the patient underwent multilevel lumbar decompression and fusion, tolerated this well and taken to the orthopedic floor postoperatively. Postop day #1, she was up and ambulatory, progressed throughout the week. ELOISA drain decreasing appropriately. Vital signs stable. Hematocrit stable. Subsequently, she was discharged to [facility] on 08/09/2016. Discharge orders and instructions found on the chart for further review.
== END 2016-08-09 12:15 | DRG 460 ==
LOC: ENRESERVDT → ENRESERVTM → C.ACU 08:42 → C.3E 13:07
PROVIDERS: ADMIT Orthopaedic Surgery Orthopaedic Surgery of the Spine; ATTEND Orthopaedic Surgery Orthopaedic Surgery of the Spine
PROC: 0ST40ZZ Resection of Lumbosacral Disc, Open Approach (ICD-10-PCS; principal; 2016-08-04 10:20)
PROC: 0SG70JZ Fusion of Right Sacroiliac Joint with Synthetic Substitute, Open Approach (ICD-10-PCS; principal; 2016-08-04 10:20)
PROC: 0SG80JZ Fusion of Left Sacroiliac Joint with Synthetic Substitute, Open Approach (ICD-10-PCS; principal; 2016-08-04 10:20)
PROC: 0SG3071 Fusion of Lumbosacral Joint with Autologous Tissue Substitute, Posterior Approach, Posterior Column, Open Approach (ICD-10-PCS; principal; 2016-08-04 10:20)
PROC: 0SG30AJ Fusion of Lumbosacral Joint with Interbody Fusion Device, Posterior Approach, Anterior Column, Open Approach (ICD-10-PCS; principal; 2016-08-04 10:20)
PROC: 0SG1071 Fusion of 2 or more Lumbar Vertebral Joints with Autologous Tissue Substitute, Posterior Approach, Posterior Column, Open Approach (ICD-10-PCS; principal; 2016-08-04 10:20)
DX: M43.16 Spondylolisthesis, lumbar region (principal); D62 Acute posthemorrhagic anemia; Z68.42 Body mass index [BMI] 45.0-49.9, adult; M48.06 Spinal stenosis, lumbar region; M48.07 Spinal stenosis, lumbosacral region; E11.65 Type 2 diabetes mellitus with hyperglycemia; I10 Essential (primary) hypertension; E78.00 Pure hypercholesterolemia, unspecified; K21.9 Gastro-esophageal reflux disease without esophagitis; G47.30 Sleep apnea, unspecified; E66.9 Obesity, unspecified; Z88.2 Allergy status to sulfonamides; Z79.4 Long term (current) use of insulin; Z79.82 Long term (current) use of aspirin; Z79.84 Long term (current) use of oral hypoglycemic drugs; Z79.899 Other long term (current) drug therapy; Z82.61 Family history of arthritis

== ENCOUNTER → 2016-08-19 | Outpatient (CLI) | payer OTHER ==
[~2016-08-19] MED LIST changes: -CEFAZOLIN 2000 MG/60 ML D5W IV SCH; +RXC5 PO; -SODIUM CHLORIDE 0.9% 1000ML 1,000 ML IV SCH
[2016-08-19 17:31] LABS: HEMATOCRIT 29.1 % (37-47); MEAN CELL VOLUME 101.7 fL (80-100); MEAN CORPUSCULAR HEMOGLOBIN 32.9 pg (25-34); MEAN CORPUSCULAR HGB CONC 32.3 g/dl (32-36); MEAN PLATELET VOLUME 9.8 fL (7.4-10.4); PLATELET COUNT 335 K/uL (130-400); RED BLOOD COUNT 2.86 M/uL (4.2-5.4); WHITE BLOOD COUNT 8.79 K/uL (4.8-10.8)
== END | disposition home or self-care (01) ==
LOC: C.LABPBG 14:41
PROVIDERS: ATTEND Internal Medicine
DX: D64.9 Anemia, unspecified (principal)

== ENCOUNTER → 2016-10-20 | Outpatient (CLI) | payer OTHER ==
[~2016-10-20] MED LIST changes: +LOSA100T30 PO; -LOSA100T66 PO
== END | disposition home or self-care (01) ==
LOC: C.LABPBG 13:29
PROVIDERS: ATTEND Urology
DX: R35.0 Frequency of micturition (principal); N39.0 Urinary tract infection, site not specified

== ENCOUNTER → 2016-12-02 | Outpatient (CLI) | payer OTHER ==
[2016-12-02 11:59] LABS: HEMATOCRIT 34.4 % (37-47); MEAN CELL VOLUME 94.8 fL (80-100); MEAN CORPUSCULAR HEMOGLOBIN 30.3 pg (25-34); PLATELET COUNT 124 K/uL (130-400); RED BLOOD COUNT 3.63 M/uL (4.2-5.4); WHITE BLOOD COUNT 4.05 K/uL (4.8-10.8)
[2016-12-02 12:23] LABS: ESTIMATED AVERAGE GLUCOSE 157 mg/dl; HA1C FLAG Normal (Normal)
[2016-12-02 12:32] LABS: BLOOD UREA NITROGEN 24 mg/dl (7-18); BUN/CREATININE RATIO 25.8 (10-20); CALCIUM 9.3 mg/dl (8.5-10.1); CARBON DIOXIDE 24 mmol/L (21-32); CHLORIDE 107 mmol/L (98-107); CREATININE 0.92 mg/dl (0.60-1.20); GLUCOSE 155 mg/dl (70-99); POTASSIUM 4.1 mmol/L (3.5-5.1); SODIUM 142 mmol/L (136-145); URIC ACID 4.6 mg/dl (2.6-7.2)
== END | disposition home or self-care (01) ==
LOC: C.LABPBG 08:23
PROVIDERS: ATTEND Internal Medicine Geriatric Medicine
DX: E11.9 Type 2 diabetes mellitus without complications (principal); H40.9 Unspecified glaucoma; I10 Essential (primary) hypertension

== ENCOUNTER → 2017-02-10 | Outpatient (CLI) | payer OTHER ==
[~2017-02-10] MED LIST changes: -LOSA100T30 PO; +LOSA100T66 PO
[2017-02-10 12:45] LABS: ALT/SGPT 18 U/L (12-78); AST/SGOT 17 U/L (15-37); BASO % 0.5 %; BASO ABS # 0.02 K/uL (0-0.2); BLOOD UREA NITROGEN 23 mg/dl (7-18); BUN/CREATININE RATIO 23.3 (10-20); CALCIUM 9.3 mg/dl (8.5-10.1); CARBON DIOXIDE 23 mmol/L (21-32); CHLORIDE 106 mmol/L (98-107); CHOLESTEROL 142 mg/dl (0-200); COMPLETE YES; CREATININE 0.98 mg/dl (0.60-1.20); EOS % 2.4 %; GLUCOSE 267 mg/dl (70-99); HEMATOCRIT 34.2 % (37-47); LYMPH % 20.2 %; LYMPH ABS # 0.75 K/uL (1.2-3.4); MEAN CELL VOLUME 96.1 fL (80-100); MEAN CORPUSCULAR HEMOGLOBIN 28.7 pg (25-34); MEAN CORPUSCULAR HGB CONC 29.8 g/dl (32-36); NEUT % 66.9 %; PLATELET COUNT 135 K/uL (130-400); POTASSIUM 4.2 mmol/L (3.5-5.1); RED BLOOD COUNT 3.56 M/uL (4.2-5.4); SODIUM 139 mmol/L (136-145); TRIGLYCERIDES 264 mg/dl (0-150); VERY LOW DENSITY LIPOPROT CALC 53 mg/dl; WHITE BLOOD COUNT 3.71 K/uL (4.8-10.8)
[2017-02-10 12:55] LABS: ALB/GLOB RATIO 1.1 (0.9-2); ALKALINE PHOSPHATASE 67 U/L (45-117); CHOLESTEROL/HDL RATIO 3.5; HDL CHOLESTEROL 41 mg/dl; LDL CHOLESTEROL CALCULATED 48 mg/dl
[2017-02-10 13:10] LABS: ESTIMATED AVERAGE GLUCOSE 148 mg/dl; HA1C FLAG Normal (Normal)
--- NOTE | 2017-02-23 09:56 | CODING QUERY MEDICAL NECESSITY ---
SUPPORTING DIAGNOSIS NEEDED Dr. Mack, A supporting diagnosis is required for the test/procedure performed on this patient in order for us to be reimbursed by the patient's insurance. Please provide a supporting diagnosis for the following test/procedure listed below next to the test name along with your signature. *If there is no additional diagnosis for this patient that would support the following test/procedure please document that below next to the test/procedure. Test(s)/Procedure(s) that require a supporting diagnosis: * [id number] GLYCATED HEMOGLOBIN DIAGNOSIS: DATE OF SERVICE: 02/10/17 Provider Signature: Date: Thank you Cecilio Multani [facility] Information Management Once completed, please kindly fax back to [phone] For questions please call [phone]
== END | disposition home or self-care (01) ==
LOC: C.LABPBG 09:27
PROVIDERS: ATTEND Internal Medicine Geriatric Medicine
DX: I67.2 Cerebral atherosclerosis (principal); E11.9 Type 2 diabetes mellitus without complications

== ENCOUNTER → 2017-02-20 | Outpatient (CLI) | payer OTHER | END | disposition home or self-care (01) | LOC: C.LABSPEC 11:45 | PROVIDERS: ATTEND Internal Medicine Geriatric Medicine | DX: D64.9 Anemia, unspecified (principal) ==

== ENCOUNTER → 2017-05-10 | Outpatient (CLI) | payer OTHER ==
[~2017-05-10] MED LIST changes: +LOSA100T30 PO; -LOSA100T66 PO
[2017-05-10 12:20] LABS: BASO % 0.5 %; BASO ABS # 0.02 K/uL (0-0.2); COMPLETE YES; HEMATOCRIT 34.7 % (37-47); IG% 0.3 %; LYMPH % 23.5 %; LYMPH ABS # 0.94 K/uL (1.2-3.4); MEAN CELL VOLUME 94.3 fL (80-100); MEAN CORPUSCULAR HEMOGLOBIN 29.6 pg (25-34); MEAN CORPUSCULAR HGB CONC 31.4 g/dl (32-36); MEAN PLATELET VOLUME 10.3 fL (7.4-10.4); NEUT % 63.7 %; PLATELET COUNT 126 K/uL (130-400); RED BLOOD COUNT 3.68 M/uL (4.2-5.4)
[2017-05-10 12:44] LABS: BLOOD UREA NITROGEN 19 mg/dl (7-18); BUN/CREATININE RATIO 21.9 (10-20); CALCIUM 9.2 mg/dl (8.5-10.1); CARBON DIOXIDE 26 mmol/L (21-32); CHLORIDE 106 mmol/L (98-107); CREATININE 0.85 mg/dl (0.60-1.20); GLUCOSE 162 mg/dl (70-99); POTASSIUM 3.9 mmol/L (3.5-5.1); SODIUM 140 mmol/L (136-145)
== END | disposition home or self-care (01) ==
LOC: C.LABPBG 08:30
PROVIDERS: ATTEND Internal Medicine Geriatric Medicine
DX: I10 Essential (primary) hypertension (principal); E11.9 Type 2 diabetes mellitus without complications; D64.9 Anemia, unspecified

== ENCOUNTER → 2017-08-16 | Outpatient (CLI) | payer OTHER ==
[2017-08-16 17:49] LABS: BASO % 0.5 %; BASO ABS # 0.02 K/uL (0-0.2); EOS % 2.9 %; EOS ABS # 0.11 K/uL (0-0.5); HEMATOCRIT 34.1 % (37-47); HEMOGLOBIN 10.5 g/dL (12.0-16.0); LYMPH % 26.5 %; MEAN CELL VOLUME 93.4 fL (80-100); MEAN CORPUSCULAR HEMOGLOBIN 28.8 pg (25-34); MEAN CORPUSCULAR HGB CONC 30.8 g/dl (32-36); MEAN PLATELET VOLUME 10.5 fL (7.4-10.4); MONO % 8.7 %; MONO ABS # 0.33 K/uL (0.11-0.59); NEUT % 61.4 %; NEUT ABS # 2.32 K/uL (1.4-6.5); PLATELET COUNT 147 K/uL (130-400); RED CELL DISTRIBUTION WIDTH CV 17.1 % (11.5-14.5); RED CELL DISTRIBUTION WIDTH SD 58.2 fL (36.4-46.3); WHITE BLOOD COUNT 3.78 K/uL (4.8-10.8)
[2017-08-16 18:21] LABS: BLOOD UREA NITROGEN 24 mg/dl (7-18); CALCIUM 9.1 mg/dl (8.5-10.1); CARBON DIOXIDE 23 mmol/L (21-32); CREATININE 0.97 mg/dl (0.60-1.20); GLUCOSE 181 mg/dl (70-99); POTASSIUM 4.2 mmol/L (3.5-5.1); SODIUM 141 mmol/L (136-145)
== END | disposition home or self-care (01) ==
LOC: C.LABPBG 11:27
PROVIDERS: ATTEND Internal Medicine Geriatric Medicine
DX: I10 Essential (primary) hypertension (principal); M79.7 Fibromyalgia; E11.9 Type 2 diabetes mellitus without complications; D64.9 Anemia, unspecified

== ENCOUNTER → 2017-08-26 | Outpatient (CLI) | payer OTHER ==
[~2017-08-26] MED LIST changes: +ASCO1CAP3 PO; +BIMA0.01 OPB; +CARB1SOL OPB; +DOCU-94 PO; +FERR325T5 PO; +FESO8TAB PO; +FURO-85 PO; +HYZ/10015 PO; +LEVO75TA5 PO; +NAPR-1221 PO; +SIMV40TA2 PO; +TRAM-10 PO; +VITAMIN B12 PO; +[UNRECOGNIZED DRUG - CODE] PO; +[UNRECOGNIZED DRUG - OTHER]
--- NOTE | 2017-08-26 16:09 | DIAGNOSTIC IMAGING REPORT ---
ABDOMEN AND PELVIS CT WITH ORAL CONTRAST CT DOSE: 1844.02 mGycm HISTORY: Acute generalized abdominal pain and bloating ABDOMINAL BLOATING TECHNIQUE: Multiaxial CT images of the abdomen and pelvis were performed following the use of oral contrast. A dose lowering technique was utilized adhering to the principles of ALARA. COMPARISON STUDY: CT abdomen and pelvis 05/05/2015 and 09/11/2013. FINDINGS: Right hemidiaphragmatic elevation with linear subsegmental bibasilar opacities suggesting atelectasis/scarring. Evaluation of the lung bases is limited secondary to respiratory motion. There is no pneumatosis or pneumoperitoneum identified. The imaged inferior cardiac chambers appear mildly enlarged with coronary arterial disease. There is suggested mild marginal nodularity of the liver otherwise appears to be within normal limits. No intrahepatic biliary ductal dilation or focal hepatic mass lesion identified. Prior cholecystectomy. The spleen is mildly enlarged, 15.5 cm. Mild generalized pancreatic atrophy. Adrenal glands are within normal limits. Evaluation of the kidneys is limited secondary to streak artifact from spinal hardware. Punctate calcification of the interpolar left kidney suggests calculus without obstruction. Mild nonspecific bilateral perinephric stranding. Study is limited by significant beam aren't artifact. Urinary bladder is partially decompressed. Prior hysterectomy. Phleboliths are seen within the pelvis. Moderate atherosclerosis and tortuosity of the abdominal aorta without aneurysm. No bulky adenopathy. 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 There is no bowel obstruction identified. No large volume ascites. The appendix appears unremarkable. Mild stranding of the mid mesentery with calcified nodule or lymph nodes again seen measuring 12 x 14 mm, unchanged from comparison study 05/05/2015 suggesting benign etiology. Fat filled periumbilical hernia, diastases 2.5 cm. Mild subcutaneous stranding of the lower abdominal wall pain is. Diastases recti. Bones appear intact. Prior posterior decompression with interbody anurag and screw fusion again seen extending from L3-S1 with bilateral iliac fusion cannulated screws. There is grade 1 anterolisthesis L4 on L5. IMPRESSION: 1. No acute intra-abdominal or intrapelvic abnormality identified. 2. No bowel obstruction or focal bowel wall thickening. 3. Unchanged calcified adenopathy of the mid mesentery appears stable dating back to 05/05/2015 suggesting benign etiology. 4. Mild splenomegaly. 5. Small fat filled periumbilical hernia. 6. Additional findings as above. Electronically signed by: Tate Anaya M.D. 08/26/2017 4:08 PM Dictated Date/Time: 08/26/2017 3:58 PM
== END | disposition home or self-care (01) ==
LOC: C.CTS 14:57
PROVIDERS: ATTEND Internal Medicine Hematology & Oncology
DX: D64.9 Anemia, unspecified (principal); R14.0 Abdominal distension (gaseous)

== ENCOUNTER → 2017-09-22 | Day surgery (SDC) | payer OTHER ==
[2017-09-06 10:19] VITALS: Ht 144.8 cm; Wt 102.3 kg
[~2017-09-22] VITALS: Ht 144.8 cm; Wt 102.3 kg
[~2017-09-22] MED LIST changes: -ANSHCCR/ EX; -ASCO500T3 PO; -BIMA0.01 OP; -CHOL2000 PO; -CYAN1CAP3 PO; -ECON118C TOP; -FESO4TAB PO; -FRRS300 PO; -GLIM4TAB2 PO; -LEVO75TA PO; +LIDOCAINE HCL 2% 2 ML VIAL (20MG/ML) ONE; -LOSA100T30 PO; +MIDAZOLAM HCL 1 MG/ML 2ML VIAL ONE; +ONDANSETRON INJ 2 MG/ML 2 ML VIAL ONE; -POLYSOL OPB; +PROPOFOL IV EMULSION 10 MG/ML 20 ML VIAL IV ONE; -RXC5 PO; -SIMV40TA4 PO; +SODIUM CHLORIDE 0.9% 500ML 500 ML IV ONE; -[UNRECOGNIZED DRUG - CODE] PO
--- NOTE | 2017-09-22 12:17 | Endo History and Physical ---
History & Physical Date of Service: Sep 22, 2017. Chief Complaint: anemia,blood in stool Referring Physician: Dr. Loy Brown History of Present Illness 86 yo CF who presents for EGD and colonoscopy secondary to anemia and blood in stool. Past Medical History Diabetes, High Cholesterol, Sleep Apnea, Hypertension, Thyroid Disease, Depression Past Surgical History Hx Cardiac Surgery: No Hx Internal Defibrillator: No Hx Pacemaker: No Hx Abdominal Surgery: Yes (BHUMI, PARTIAL HYSTERECTOMY) Hx of Implantable Prosthesis: No Hx Post-Op Nausea and Vomiting: No Hx Cancer Surgery: No Hx Thoracic Surgery: No Hx Orthopedic: Yes (RT/LEFT TKA, TOENAILS REMOVED, RT/LEFT CTR) Hx Urinary Tract Surgery: Yes (CYSTOSCOPY AND STONE REMOVAL) Family History None Social History Smoking Status: Never Smoker Hx Substance Use: No Hx Alcohol Use: No Allergies Coded Allergies: Lisinopril (Verified Allergy, Unknown, COUGH, 09/22/17) Sulfa Antibiotics (Verified Adverse Reaction, Unknown, VOMITING, 09/06/17) Current Medications Reported Home Medications Medications Dose Route/Sig Max Daily Dose Days Date Category [Dried Isabel Slices] 1 Dose DAILY PRN 09/06/17 Reported [Vitamin B12] 1 Tab PO HS 09/06/17 Reported Copper Caps (Copper Gluconate) 2 Mg Cap 4 Mg PO QAM 09/06/17 Reported Vitamin C (Ascorbic Acid) 500 Mg Cap 1 Cap PO 09/06/17 Reported Ultram (Tramadol HCl) 50 Mg Tab 50 Mg PO Q4H PRN 09/06/17 Reported Toviaz (Fesoterodine Fumarate) 8 Mg Tab 1 Tab PO HS 09/06/17 Reported Zocor (Simvastatin) 40 Mg Tab 40 Mg PO QPM 09/06/17 Reported Micro-K Ext Rel (Potassium Chloride) 10 Meq Capcr 10 Meq PO BID 09/06/17 Reported Zofran (Ondansetron HCl) 4 Mg Tab 4 Mg PO DIRECTED PRN 09/06/17 Reported Prilosec (Omeprazole) 20 Mg Cap 20 Mg PO QAM 09/06/17 Reported Naproxen 375 Mg Tab 1 Tab PO BID PRN 09/06/17 Reported Toprol-Xl (Metoprolol Succinate) 25 Mg Tabcr 25 Mg PO QPM 09/06/17 Reported Ocuvite Preservision (Multivitamins/Minerals) 1 Tab Tab 1 Tab PO BID 09/06/17 Reported Refresh (Carboxymethylcellulose Sodium) 1 % Hairsh 1 Drop OPB QAM 09/06/17 Reported Lumigan (Bimatoprost) 0.01 % Tosha 1 Drops OPB HS 09/06/17 Reported Hyzaar 25MG/100MG (HCTZ/Losartan Potassium) Tab 1 Tab PO QAM 09/06/17 Reported Levothyroxine Sodium 75 Mcg Tab 1 Tab PO QAM 09/06/17 Reported Lantus (Insulin Glargine) 100 Unit/Ml Inj 60 SC QPM 09/06/17 Reported Lantus (Insulin Glargine) 100 Unit/Ml Inj 30 SC QAM 09/06/17 Reported Lasix (Furosemide) 20 Mg Tab 20 Mg PO DAILY PRN 09/06/17 Reported Prozac (Fluoxetine HCl) 10 Mg Cap 10 Mg PO QAM 09/06/17 Reported Ferrous Sulfate 325 Mg Tab 1 Tab PO QAM 09/06/17 Reported Aricept (Donepezil Hydrochloride) 10 Mg Tab 10 Mg PO HS 09/06/17 Reported Colace (Docusate Sodium) 100 Mg Cap 1 Cap PO BID 09/06/17 Reported Allopurinol 100 Mg Tab 100 Mg PO QAM 07/04/16 Reported Glucophage (Metformin Hcl) 1,000 Mg Tab 1,000 Mg PO BID 10/24/15 Reported Aspirin Ec (Aspirin) 81 Mg Tab 81 Mg PO HS 10/24/15 Reported Vital Signs Weight (Kilograms): 102.27 Height (Feet): 4 Height (Inches): 9 Date Time Temp Pulse Resp B/P (MAP) Pulse Ox O2 Delivery O2 Flow Rate FiO2 09/22/17 11:36 36.9 88 20 157/81 (106) 96 Room Air Physical Exam General Appearance: WD/WN, no apparent distress Respiratory/Chest: Auscultation: breath sounds normal Cardiovascular: Heart Auscultation: RRR Abdomen: Bowel Sounds: normal Inspection & Palpation: soft, non-distended, no tenderness, guarding & rebound Assessment and Plan Assessment: 86 yo CF who presents for EGD and colonoscopy secondary to anemia and blood in stool. Plan: Proceed with EGD and colonoscopy.
--- NOTE | 2017-09-22 13:15 | Anesthesiology Progress Note ---
Anesthesia Post Op Note Date & Time Sep 22, 2017 at 13:14 Vital Signs Pain Intensity: 0 Vital Signs Past 12 Hours Date Time Temp Pulse Resp B/P (MAP) Pulse Ox O2 Delivery O2 Flow Rate FiO2 09/22/17 13:06 84 18 111/56 (74) 95 Room Air 09/22/17 12:51 82 16 97/79 (85) 95 Room Air 09/22/17 11:36 36.9 88 20 157/81 (106) 96 Room Air Notes Mental Status: alert / awake / arousable, participated in evaluation Pt Amnestic to Procedure: Yes Nausea / Vomiting: adequately controlled Pain: adequately controlled Airway Patency, RR, SpO2: stable & adequate BP & HR: stable & adequate Hydration State: stable & adequate Anesthetic Complications: no major complications apparent
[2017-09-22 13:21] VITALS: BP 111/64; PULSE 79; O2SAT 96
--- NOTE | 2017-09-22 13:36 | Discharge Instructions ---
Endoscopy Patient Instructions Date / Procedure(s) Performed Sep 22, 2017. Colonoscopy, EGD Allergy Information Coded Allergies: Lisinopril (Verified Allergy, Unknown, COUGH, 09/22/17) Sulfa Antibiotics (Verified Adverse Reaction, Unknown, VOMITING, 09/06/17) Discharge Date / Findings Sep 22, 2017. EGD: Gastritis Colonoscopy: Diverticulosis and Hemorrhoids Medication Instructions Stopped Medication(s): stopped Metformin and insulins on Tuesday,iron and copper supplements on tuesday,took ASA yesterday OK to resume all medications today as prescribed Reported Home Medications Medications Dose Route/Sig Max Daily Dose Days Date Category [Dried Isabel Slices] 1 Dose DAILY PRN 09/06/17 Reported [Vitamin B12] 1 Tab PO HS 09/06/17 Reported Copper Caps (Copper Gluconate) 2 Mg Cap 4 Mg PO QAM 09/06/17 Reported Vitamin C (Ascorbic Acid) 500 Mg Cap 1 Cap PO 09/06/17 Reported Ultram (Tramadol HCl) 50 Mg Tab 50 Mg PO Q4H PRN 09/06/17 Reported Toviaz (Fesoterodine Fumarate) 8 Mg Tab 1 Tab PO HS 09/06/17 Reported Zocor (Simvastatin) 40 Mg Tab 40 Mg PO QPM 09/06/17 Reported Micro-K Ext Rel (Potassium Chloride) 10 Meq Capcr 10 Meq PO BID 09/06/17 Reported Zofran (Ondansetron HCl) 4 Mg Tab 4 Mg PO DIRECTED PRN 09/06/17 Reported Prilosec (Omeprazole) 20 Mg Cap 20 Mg PO QAM 09/06/17 Reported Naproxen 375 Mg Tab 1 Tab PO BID PRN 09/06/17 Reported Toprol-Xl (Metoprolol Succinate) 25 Mg Tabcr 25 Mg PO QPM 09/06/17 Reported Ocuvite Preservision (Multivitamins/Minerals) 1 Tab Tab 1 Tab PO BID 09/06/17 Reported Refresh (Carboxymethylcellulose Sodium) 1 % Harish 1 Drop OPB QAM 09/06/17 Reported Lumigan (Bimatoprost) 0.01 % Tosha 1 Drops OPB HS 09/06/17 Reported Hyzaar 25MG/100MG (HCTZ/Losartan Potassium) Tab 1 Tab PO QAM 09/06/17 Reported Levothyroxine Sodium 75 Mcg Tab 1 Tab PO QAM 09/06/17 Reported Lantus (Insulin Glargine) 100 Unit/Ml Inj 60 SC QPM 09/06/17 Reported Lantus (Insulin Glargine) 100 Unit/Ml Inj 30 SC QAM 09/06/17 Reported Lasix (Furosemide) 20 Mg Tab 20 Mg PO DAILY PRN 09/06/17 Reported Prozac (Fluoxetine HCl) 10 Mg Cap 10 Mg PO QAM 09/06/17 Reported Ferrous Sulfate 325 Mg Tab 1 Tab PO QAM 09/06/17 Reported Aricept (Donepezil Hydrochloride) 10 Mg Tab 10 Mg PO HS 09/06/17 Reported Colace (Docusate Sodium) 100 Mg Cap 1 Cap PO BID 09/06/17 Reported Allopurinol 100 Mg Tab 100 Mg PO QAM 07/04/16 Reported Glucophage (Metformin Hcl) 1,000 Mg Tab 1,000 Mg PO BID 10/24/15 Reported Aspirin Ec (Aspirin) 81 Mg Tab 81 Mg PO HS 10/24/15 Reported Provider Instructions Activity Restrictions - No exercising or heavy lifting for 24 hours. - Do not drink alcohol the day of the procedure. - Do not drive a car or operate machinery until the day after the procedure. - Do not make any important decisions or sign important papers in 24 hours after the procedure. Following Day: - Return to full activity which may include returning to work/school. Diet Start your diet with liquids and light foods (jello, soup, juice, toast). Then eat your usual diet if not nauseated. Treatment For Common After Affects For mild abdominal pain, bloating, or excessive gas: - Rest - Eat lightly - Lie on right side Follow-Up Information Follow-up with Dr. Loy Brown as scheduled Anesthesia Information What You Should Know You have had a procedure that required some medicine to reduce anxiety and discomfort. This treatment is called moderate sedation. After receiving the treatment, you may be sleepy, but you will be able to breathe on your own. The effects of the treatment may last for several hours. Follow these instructions along with Activity/Diet recommendations noted above: * Do NOT do anything where dizziness or clumsiness would be dangerous. * Rest quietly at home today, then you can be up and about tomorrow. * Have a responsible person stay with you the rest of today. * You may have had an I.V. today. If so, you may take the dressing off later today. Recommendations Call your doctor if: * Trouble breathing * Continuous vomiting for more than 24 hours * Temperature above 101 degrees * Severe abdominal pain or bloating * Pain not relieved by pain medicine ordered * There is increased drainage or redness from any incision * A large amount of rectal bleeding greater than 2-3 tablespoons. (If you had a polyp/s removed or have hemorrhoids, a small amount of blood - from the rectum is to be expected.) * You have any unanswered questions or concerns. IN THE EVENT OF A SERIOUS EMERGENCY, GO TO THE NEAREST EMERGENCY ROOM Your discharge instructions were prepared by provider Mark Felix. Patient Instructions Signature Page Amira Liza Patient (or Guardian) Signature/Date: I have read and understand the instructions given to me by my caregivers. Caregiver/RN/Doctor Signature/Date: The above-named patient and/or guardian has received patient instructions on this date. + Original Patient Signature Page (only) stays with chart. Please make copy for patient.
--- NOTE | 2017-09-22 14:25 | GI REPORT ---
Procedure Date: 09/22/2017 11:39 AM Procedure: Upper GI endoscopy Indications: Iron deficiency anemia Medicines: Monitored Anesthesia Care Complications: No immediate complications. Estimated Blood Loss: Estimated blood loss: none. Procedure: Pre-Anesthesia Assessment: - Prior to the procedure, a History and Physical was performed, and patient medications and allergies were reviewed. The patient's tolerance of previous anesthesia was also reviewed. The risks and benefits of the procedure and the sedation options and risks were discussed with the patient. All questions were answered, and informed consent was obtained. Prior Anticoagulants: The patient has taken aspirin, last dose was 1 day prior to procedure. ASA Grade Assessment: III - A patient with severe systemic disease. After reviewing the risks and benefits, the patient was deemed in satisfactory condition to undergo the procedure. After obtaining informed consent, the endoscope was passed under direct vision. Throughout the procedure, the patient's blood pressure, pulse, and oxygen saturations were monitored continuously. The scope was introduced through the mouth, and advanced to the second part of duodenum. The upper GI endoscopy was accomplished without difficulty. The patient tolerated the procedure well. Findings: The esophagus was normal. Scattered mild inflammation characterized by erosions was found in the entire examined stomach. The examined duodenum was normal. Impression: - Normal esophagus. - Erosive gastritis. - Normal examined duodenum. - No specimens collected. Recommendation: - Resume previous diet. - Continue present medications. - Return to primary care physician as previously scheduled. Mark Felix DO 09/22/2017 2:24:56 PM This report has been signed electronically. Note Initiated On: 09/22/2017 11:39 AM I attest to the content of the Intraoperative Record and orders documented therein, exceptions below
--- NOTE | 2017-09-22 14:28 | GI REPORT ---
Procedure Date: 09/22/2017 11:37 AM Procedure: Colonoscopy Indications: Rectal bleeding Medicines: Monitored Anesthesia Care Complications: No immediate complications. Estimated Blood Loss: Estimated blood loss: none. Procedure: Pre-Anesthesia Assessment: - Prior to the procedure, a History and Physical was performed, and patient medications and allergies were reviewed. The patient's tolerance of previous anesthesia was also reviewed. The risks and benefits of the procedure and the sedation options and risks were discussed with the patient. All questions were answered, and informed consent was obtained. Prior Anticoagulants: The patient has taken aspirin, last dose was 1 day prior to procedure. ASA Grade Assessment: III - A patient with severe systemic disease. After reviewing the risks and benefits, the patient was deemed in satisfactory condition to undergo the procedure. After I obtained informed consent, the scope was passed under direct vision. Throughout the procedure, the patient's blood pressure, pulse, and oxygen saturations were monitored continuously. The scope was introduced through the anus and advanced to the cecum, identified by appendiceal orifice and ileocecal valve. The colonoscopy was performed without difficulty. The patient tolerated the procedure well. The quality of the bowel preparation was fair. The ileocecal valve, appendiceal orifice, and rectum were photographed. Findings: The perianal and digital rectal examinations were normal. Multiple small-mouthed diverticula were found in the sigmoid colon. Non-bleeding internal hemorrhoids were found during retroflexion. The hemorrhoids were small. Impression: - Preparation of the colon was fair. - Diverticulosis in the sigmoid colon. - Non-bleeding internal hemorrhoids. - No specimens collected. Recommendation: - Resume previous diet. - Continue present medications. - No repeat colonoscopy due to age and the absence of advanced adenomas. - Return to primary care physician as previously scheduled. Mark Felix DO 09/22/2017 2:27:57 PM This report has been signed electronically. Note Initiated On: 09/22/2017 11:37 AM I attest to the content of the Intraoperative Record and orders documented therein, exceptions below
== END | disposition home or self-care (01) ==
LOC: C.GI 10:54
PROVIDERS: ATTEND Internal Medicine
DX: K62.5 Hemorrhage of anus and rectum (principal); R19.5 Other fecal abnormalities; K57.30 Diverticulosis of large intestine without perforation or abscess without bleeding; K64.8 Other hemorrhoids; D50.9 Iron deficiency anemia, unspecified; K29.70 Gastritis, unspecified, without bleeding; E11.9 Type 2 diabetes mellitus without complications; I10 Essential (primary) hypertension; G47.33 Obstructive sleep apnea (adult) (pediatric); E66.01 Morbid (severe) obesity due to excess calories; Z68.43 Body mass index [BMI] 50.0-59.9, adult; F32.9 Major depressive disorder, single episode, unspecified; E78.5 Hyperlipidemia, unspecified; E03.9 Hypothyroidism, unspecified; Z79.82 Long term (current) use of aspirin; Z79.4 Long term (current) use of insulin; Z88.2 Allergy status to sulfonamides; Z96.653 Presence of artificial knee joint, bilateral; Z90.49 Acquired absence of other specified parts of digestive tract; Z90.89 Acquired absence of other organs; Z80.0 Family history of malignant neoplasm of digestive organs; Z82.49 Family history of ischemic heart disease and other diseases of the circulatory system; Z84.1 Family history of disorders of kidney and ureter

== ENCOUNTER 2020-11-13 22:07 | Observation (INO) ==
--- NOTE | 2020-11-13 22:27 | Emergency Department Note ---
Impression & Plan Acute CVA (cerebrovascular accident), Slurred speech, Dizziness, Nausea ED Provider Note ShowNAME: ANAM GILES AGE: 89 SEX: F : 1930 ARRIVES VIA: Walk-In INFORMANT: [Patient] ED PROVIDER(S): [Yfn Hernandez MD] CHIEF COMPLAINT: Stroke symptoms HISTORY OF PRESENT ILLNESS: The patient is an 89-year-old female who has had symptoms for 2 or 3 months. She has had issues with her speech where she sometimes mixes up her words and sometimes slurs her speech as if she is drunk. She has been off balance and wobbly and has had intermittent nausea. No fall. No cough or congestion. She has no urinary complaints. She has not noticed one-sided weakness. The patient states that she currently feels nauseated and she also believes that her legs are more swollen today. The patient had an outpatient MRI this evening, it did show a acute/subacute stroke. No intracranial bleeding. She was referred back to the ED for evaluation and admission. The patient has had mini strokes in the past. She is on baby aspirin. She initially felt her symptoms may be from her medications however, she did have an outpatient MRI ordered for her complaints. The results are shown as below. Brain MRI WITHOUT CONTRAST HISTORY: Aphasia. Slurred speech. Frontal headache. G31.84 - Mild cognitive impairment, so stated TECHNIQUE: Multiplanar multisequence MRI of the brain was performed without the use of contrast. COMPARISON STUDY: Head CT 07/07/2020. Brain MRI 01/18/2019. FINDINGS: There is a punctate focus of restricted diffusion seen within the cortex of the right parietal lobe on image 7. This suggests an acute infarct. This measures 4 mm. Partially empty sella, unchanged. The remaining midline s tructures are intact. Prior right lens replacement is again noted. Stable 2 cm retention cyst within the right maxillary sinus. The mastoid air cells are clear. The major vascular flow-voids at the skull base are well-maintained. The ventricles and sulci demonstrate mild age-related involutional changes. There is no mass, hematoma, midline shift. Patchy T2 hyperintensity seen predominantly within the periventricular white matter of the supratentorial brain. This is similar to the prior study and favors moderate microvascular ischemic change. IMPRESSION: 1. There is a punctate focus of restricted diffusion seen within the cortex of the right parietal lobe consistent with an acute infarct. 2. No change in the atrophy and microvascular ischemic changes. 3. This finding was called/faxed to the referring physician following dictation. ACT 112: Negative or not required by law. Electronically signed by: Eduard Huerta M.D. 11/13/2020 7:17 PM REVIEW OF SYSTEMS: See HPI for pertinent positives and negatives. A total of ten systems were reviewed and were otherwise negative. PMHx/PSHx: See Below SOCIAL HISTORY: See Below. PHYSICAL EXAM: GENERAL: Patient is in no acute distress. HEENT: No acute trauma, normocephalic atraumatic, mucous membranes moist, no nasal congestion, no scleral icterus. NECK: No stridor, no adenopathy, no meningismus, trachea is midline. LUNGS: Clear to auscultation bilaterally, no wheeze, no rhonchi, breath sounds equal. HEART: Without murmurs gallops or rubs, regular rate and rhythm. ABDOMEN: Soft, nontender, bowel sounds positive, no peritonitis. EXTREMITIES: No cyanosis, moderate bilateral pedal edema, full range of motion of all the joints without pain or difficulty, no signs for acute trauma. NEUROLOGIC: Oriented x 3, no upper extremity cerebellar dysfunction or upper extremity drift. There is some occasional slurring of her speech. No facial droop. SKIN: No rash, no jaundice, no diaphoresis. DIFFERENTIAL DIAGNOSIS: Infection, dehydration, metabolic abnormality, hypo/hyperglycemia, electrolyte disturbance, anemia, hypoxia, cardiac sources, intracerebral event, toxicologic issues, stroke, TIA, as well as other pathologies. EMERGENCY DEPARTMENT COURSE/PROCEDURES: ECG: Indication was stroke. The ECG shows a normal sinus rhythm with a right bundle branch block. The rate is 93. There is no ST elevation, no PVCs. The QTc is 514. Compared to an ECG from 07 July 2020, I see no significant change. Continuous Cardiac Monitoring: An order was placed for continuous cardiac monitoring. The monitor shows a rate of 97 with normal sinus rhythm. Critical Care Note: I have personally spent 41 minutes of critical care time in the direct management of this patient. This includes bedside care, interpretation of diagnostic studies, and testing, discussion with consultants, patient, and family members, and other required patient management activities. This 41 minutes is in excess of all separately billable procedures. MEDICAL DECISION MAKING: There is no leukocytosis or concerning anemia. Platelet count somewhat low at 115. No coagulopathy. No kidney failure or significant electrolyte abnormality. No worrisome liver enzyme elevation. ECG shows a sinus rhythm, no acute ischemic change. Cardiac enzyme testing x1 is not consistent with acute cardiac injury. Urinalysis does not show infection. Covid testing is pending. Chest x-ray shows some cardiomegaly and a widened mediastinum although, the film looks similar to previous films. I see no pneumonia. Brain CT showed no acute bleed or mass-effect. CT angio of the head and neck were performed, there was no significant stenosis or occlusion seen. On my exam, the patient did have some speech slur at times. There was no facial droop. No upper extremity cerebellar dysfunction. The patient had an outpatient MRI today demonstrating a small acute/subacute stroke in the right parietal lobe. She is in need of a hospital stay. She is clearly not a candidate for TPA as her symptoms have been present for months. The patient is aware of her findings, her family is aware. Hospitalization is warranted for more of a stroke work-up. I did speak to the case management team. The on-call hospitalist was consulted. 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 Cerebral atherosclerosis Choledocholithiasis Chronic lower back pain Chronic reflux esophagitis Compression fracture of thoracic vertebra Depression Dyslipidemia Fibromyalgia Glaucoma Hemorrhoids, internal Hepatic steatosis History of gastric ulcer History of gastritis Erosive History of TIA (transient ischemic attack) Hypercalcemia Hypertension Hypothyroidism IBS (irritable bowel syndrome) Leukopenia Low serum copper for age Lumbar stenosis with neurogenic claudication Mild cognitive impairment Night sweats Obstructive sleep apnea Osteoarthritis Osteopenia Pancytopenia Renal cyst Sensorineural hearing loss (SNHL) of both ears Thrombocytopenia Type 2 diabetes mellitus Urinary calculus Urinary incontinence Ventral hernia Vitamin B12 deficiency Vitamin D deficiency Surgical History History of cataract surgery History of cholecystectomy History of colonoscopy History of knee replacement History of tonsillectomy S/P panniculectomy (02/20/19) Status post laminectomy Family History Father Cardiac disorder Hypertension Kidney stones Prostate cancer Hearing loss Family/Other Cardiac disorder Hypertension Kidney stones Mother Dementia Hypertension Brother Dementia Lung cancer Myocardial infarction Aunt Breast cancer Other No family history of adverse response to anesthesia No family history of bleeding disorder Denies family history of Ovarian cancer Crohn's disease Colorectal cancer Social History Smoking Status: Never smoker Second Hand Exposure: No; Hx Alcohol Use: No Hx Substance Use: No Preferred Language: Lao Communication Ability: Effective Visual Impairment: Limited Hearing Ability: Use of Hearing Aid Beliefs That Will Affect Care: None marital status: Current Living Situation: Spouse current occupational status: retired Feels Safe at Home: Yes Childhood Exposure to Second-Hand Smoke: No caffeine: Yes (Tea 1 cup per day.) during the past year weight has: remained stable Dental Care, Regularly: Yes Physical Activity Frequency: Does not Exercise Seatbelt Use: always Sunscreen Use: No Allergies Allergies Allergy/AdvReac Type Severity Reaction Status Date / Time lisinopril AdvReac Intermediate COUGH Verified 11/13/20 23:31 Sulfa (Sulfonamide AdvReac Intermediate VOMITING Verified 11/13/20 23:31 Antibiotics) Home Meds Home Medications Medication Instructions Recorded Confirmed aspirin 81 mg PO DAILY 09/05/18 11/13/20 copper gluconate 2 mg PO DAILY 09/05/18 11/13/20 cyanocobalamin (vitamin B-12) 2,000 mcg PO DAILY 09/05/18 11/13/20 [Vitamin B-12] ferrous sulfate 325 mg PO DAILY 09/05/18 11/13/20 travoprost [Travatan Z] 1 drp OPB PM 09/05/18 11/13/20 ascorbic acid (vitamin C) 500 mg 500 mg PO DAILY tab 03/12/19 11/13/20 tablet carboxymethylcellulose sodium 0.5 1 drp OPB QAM 03/13/19 11/13/20 % eye drops Previous Rx's Medication Instructions Recorded cholecalciferol (vitamin D3) 50 2,000 unit PO DAILY #90 tab 01/12/19 mcg (2,000 unit) tablet betamethasone dipropionate 0.05 % 1 appln TOP BID PRN #45 gm 02/27/19 topical cream blood-glucose meter #1 ea 06/10/20 donepezil 10 mg tablet 10 mg PO DAILY #90 tab 06/19/20 levothyroxine 75 mcg tablet 75 mcg PO DAILY #90 tab 06/19/20 mirabegron 50 mg tablet,extended 50 mg PO DAILY #90 tab 06/19/20 release 24 hr insulin glargine 100 unit/mL (3 See Rx Instructions .ROUTE 06/30/20 mL) subcutaneous pen .COMPLEX #90 ml allopurinol 100 mg tablet 100 mg PO DAILY #90 tab 07/07/20 prochlorperazine maleate 5 mg PO Q6H PRN #14 tab 07/07/20 simvastatin 20 mg tablet 20 mg PO DAILY #90 tab 07/08/20 famotidine 20 mg tablet 20 mg PO BID #180 tab 07/15/20 metoprolol succinate 25 mg 25 mg PO DAILY #90 tab 07/15/20 tablet,extended release 24 hr lancets 30 gauge #200 ea 07/23/20 pen needle, diabetic 32 gauge x #200 ea 07/23/20 1/" naproxen 500 mg tablet 250 mg PO DAILY PRN #20 tab 08/12/20 fluoxetine 10 mg capsule 10 mg PO DAILY #90 cap 09/15/20 trospium 20 mg tablet 20 mg PO BID #180 tab 09/16/20 losartan 50 mg-hydrochlorothiazide 1 tab PO DAILY #90 tab 09/24/20 12.5 mg tablet gabapentin 300 mg capsule 300 mg PO TID #270 cap 09/25/20 metformin 500 mg tablet 500 mg PO BID #180 tab 09/29/20 omeprazole magnesium 20 mg 20 mg PO DAILY #90 tab 10/07/20 tablet,delayed release potassium citrate 10 mEq (1,080 10 meq PO BID #180 tab 10/16/20 mg) tablet,extended release blood sugar diagnostic #300 ea 10/20/20 ondansetron 4 mg disintegrating 4 mg PO DAILY PRN #90 tab 10/27/20 tablet Results & Data (ED) Vital Signs Vital Signs - 24 hr 11/13/20 22:08 11/13/20 23:00 Temperature 36.7 C Temperature Source Temporal Artery Scan Pulse Rate 97 H Respiratory Rate 18 Blood Pressure 184/93 H Blood Pressure Mean 123 Pulse Oximetry 94 Oxygen Delivery Method Room Air Room Air Sepsis Recent Fever Within 48 Hours No Sepsis New/Unexplained Change in Mental Status No Sepsis Action Taken by Nursing No Action Required Home Medications Current Medication List: was personally reviewed by me Laboratory Data Attestation: I reviewed the patient's lab results. Result diagrams: 11/13/20 22:48 11/13/20 22:48 Lab Results 11/13/20 11/13/20 11/13/20 Range/Units 22:48 22:48 22:48 WBC 4.88 (4.8-10.8) K/uL RBC 3.38 L (4.2-5.4) M/uL Hgb 12.0 (12.0-16.0) g/dL Hct 35.3 L (37-47) % MCV 104.4 H (80-100) fL MCH 35.5 H (25-34) pg MCHC 34.0 (32-36) g/dL RDW Std Deviation 55.4 H (36.4-46.3) fL RDW Coeff of Gillian 14.7 H (11.5-14.5) % Plt Count 115 L (130-400) K/uL MPV 9.7 (7.4-10.4) fL Immature Gran % (Auto) 0.0 % Neut % (Auto) 68.7 % Lymph % (Auto) 13.7 % Archuleta % (Auto) 14.1 % Eos % (Auto) 2.7 % Baso % (Auto) 0.8 % Neut # (Auto) 3.35 (1.4-6.5) K/uL Lymph # (Auto) 0.67 L (1.2-3.4) K/uL Archuleta # (Auto) 0.69 H (0.11-0.59) K/uL Eos # (Auto) 0.13 (0-0.5) K/uL Baso # (Auto) 0.04 (0-0.2) K/uL Immature Gran # (Auto) 0.00 (0.00-0.02) K/uL PT 10.7 (9.0-12.0) Seconds INR 1.1 (0.9-1.1) APTT 24.8 (21.0-31.0) Seconds PTT Ratio 0.9 Sodium (136-145) mmol/L Potassium (3.5-5.1) mmol/L Chloride (98-107) mmol/L Carbon Dioxide (21-32) mmol/L Anion Gap (3-11) BUN (7-18) mg/dl Creatinine (0.6-1.2) mg/dl Est Cr Clr Drug Dosing Est GFR ( Amer) ml/min Est GFR (Non-Af Amer) ml/min BUN/Creatinine Ratio (10-20) Glucose (70-99) mg/dl Calcium (8.5-10.1) mg/dl Magnesium (1.8-2.4) mg/dl Total Bilirubin (0.2-1) mg/dl AST (15-37) U/L ALT (12-78) U/L Alkaline Phosphatase (45-117) U/L Troponin I (0-0.045) ng/ml Total Protein (6.4-8.2) gm/dl Albumin (3.4-5.0) gm/dl Globulin (2.5-4.0) gm/dl Albumin/Globulin Ratio (0.9-2) Urine Color Urine Appearance (Clear) Urine pH (4.5-7.5) Ur Specific Reading (1.000-1.030) Urine Protein (Negative) Urine Glucose (UA) (Negative) Urine Ketones (Negative) Urine Blood (Negative) Urine Nitrite (Negative) Urine Bilirubin (Negative) Urine Urobilinogen (Negative) Ur Leukocyte Esterase (Negative) Urine WBC (Auto) (0-5) /hpf Urine RBC (Auto) (0-4) /hpf U Hyaline Cast (Auto) (0-5) /lpf U Epithel Cells (Auto) (0-5) /lpf Urine Bacteria (Auto) (Negative) COVID-19 Eval Order Blood Type O Positive Antibody Screen NEGATIVE 11/13/20 11/13/2011/13/21 Range/Units 22:48 23:38 23:58 WBC (4.8-10.8) K/uL RBC (4.2-5.4) M/uL Hgb (12.0-16.0) g/dL Hct (37-47) % MCV (80-100) fL MCH (25-34) pg MCHC (32-36) g/dL RDW Std Deviation (36.4-46.3) fL RDW Coeff of Gillian (11.5-14.5) % Plt Count (130-400) K/uL MPV (7.4-10.4) fL Immature Gran % (Auto) % Neut % (Auto) % Lymph % (Auto) % Archuleta % (Auto) % Eos % (Auto) % Baso % (Auto) % Neut # (Auto) (1.4-6.5) K/uL Lymph # (Auto) (1.2-3.4) K/uL Archuleta # (Auto) (0.11-0.59) K/uL Eos # (Auto) (0-0.5) K/uL Baso # (Auto) (0-0.2) K/uL Immature Gran # (Auto) (0.00-0.02) K/uL PT (9.0-12.0) Seconds INR (0.9-1.1) APTT (21.0-31.0) Seconds PTT Ratio Sodium 142 (136-145) mmol/L Potassium 4.0 (3.5-5.1) mmol/L Chloride 108 H (98-107) mmol/L Carbon Dioxide 27 (21-32) mmol/L Anion Gap 7.0 (3-11) BUN 26 H (7-18) mg/dl Creatinine 0.94 (0.6-1.2) mg/dl Est Cr Clr Drug Dosing Not Reportable Est GFR ( Amer) 62.8 ml/min Est GFR (Non-Af Amer) 54.2 ml/min BUN/Creatinine Ratio 27.8 H (10-20) Glucose 193 H (70-99) mg/dl Calcium 9.0 (8.5-10.1) mg/dl Magnesium 1.9 (1.8-2.4) mg/dl Total Bilirubin 0.7 (0.2-1) mg/dl AST 15 (15-37) U/L ALT 18 (12-78) U/L Alkaline Phosphatase 73 (45-117) U/L Troponin I < 0.015 (0-0.045) ng/ml Total Protein 7.1 (6.4-8.2) gm/dl Albumin 3.7 (3.4-5.0) gm/dl Globulin 3.4 (2.5-4.0) gm/dl Albumin/Globulin Ratio 1.1 (0.9-2) Urine Color Yellow Urine Appearance Clear (Clear) Urine pH 7.0 (4.5-7.5) Ur Specific Reading 1.012 (1.000-1.030) Urine Protein 1+ H (Negative) Urine Glucose (UA) Negative (Negative) Urine Ketones Negative (Negative) Urine Blood Negative (Negative) Urine Nitrite Negative (Negative) Urine Bilirubin Negative (Negative) Urine Urobilinogen Negative (Negative) Ur Leukocyte Esterase Negative (Negative) Urine WBC (Auto) 1-5 (0-5) /hpf Urine RBC (Auto) 0-4 (0-4) /hpf U Hyaline Cast (Auto) 0 (0-5) /lpf U Epithel Cells (Auto) 5-10 H (0-5) /lpf Urine Bacteria (Auto) Negative (Negative) COVID-19 Eval Order Covid19 at [facility] Blood Type Antibody Screen Administered Medications Discontinued Medications Ioversol (Optiray 350 500ml) 120 ml IV ONCE ONE Stop: 11/13/20 23:27 Last Admin: 11/13/20 23:27 Dose: 120 ml Documented by: [id number] Ondansetron HCl (Ondansetron Inj 2 Mg/Ml 2 Ml Vial) 4 mg IV NOW STA Stop: 11/13/20 22:41 Last Admin: 11/13/20 22:56 Dose: 4 mg Documented by: [id number] Imaging Data Attestation: I personally reviewed and interpreted this imaging study as follows: My Impression: Chest x-ray: There is some cardiomegaly and mediastinal widening. The film looks similar to previous films. No pneumonia or CHF. Radiologist's Impression: CT head: There is no intracranial hemorrhage, mass- effect or edema. No evidence for acute cortical stroke. There is periventr icular small vessel ischemic change. Mild generalized brain atrophy. The sinuses and mastoid air cells are clear. CTA of the head: There is atherosclerotic disease involving the cavernous portion of the bilateral internal carotid arteries with no evidence for stenosis, occlusion or aneurysm. CTA of the neck: There is calcified atherosclerotic disease throughout the aorta. There is mild atherosclerotic disease throughout the bilateral common carotid and bulb region with no stenosis. No stenosis or occlusion involving the bilateral internal carotid arteries, external carotid arteries or bilateral vertebral arteries. Discharge Plan Visit Data Chief Complaint: Neuro Symptoms/Deficit Stated Complaint: REF BY DOCTOR, ACUTE STROKE ED Provider: Yfn Hernandez Discharge Problem: Acute CVA (cerebrovascular accident), Slurred speech, Dizziness, Nausea Patient Disposition: Admitted As Inpatient Condition: Fair Forms Stand Alone Forms: [facility], Virtual Emergency Department, Important Visit Information Prescriptions Prescriptions: No Action (DME) blood-glucose meter [Dream Kitchen Ultra2 Meter] Kit See Rx Instructions .ROUTE .MEDSUPPLY Qty: 1 RF: 0 donepezil 10 mg tablet 10 mg PO DAILY Qty: 90 RF: 1 levothyroxine [Synthroid] 75 mcg tablet 75 mcg PO DAILY Qty: 90 RF: 1 Myrbetriq 50 mg tablet extended release 24 hr 50 mg PO DAILY Qty: 90 RF: 1 Lantus Solostar U-100 Insulin 100 unit/mL (3 mL) insulin pen See Rx Instructions .ROUTE .COMPLEX Qty: 90 RF: 5 allopurinol 100 mg tablet 100 mg PO DAILY Qty: 90 RF: 1 simvastatin 20 mg tablet 20 mg PO DAILY Qty: 90 RF: 1 metoprolol succinate 25 mg tablet extended release 24 hr 25 mg PO DAILY Qty: 90 RF: 3 (DME) lancets [OneTouch Delica Lancets] 30 gauge misc See Rx Instructions .ROUTE .MEDSUPPLY Qty: 200 RF: 3 (DME) pen needle, diabetic [UltiCare Pen Needle] 32 gauge x 1/4" needle See Dose Instructions .ROUTE .MEDSUPPLY Qty: 200 RF: 3 fluoxetine 10 mg capsule 10 mg PO DAILY Qty: 90 RF: 1 trospium 20 mg tablet 20 mg PO BID Qty: 180 RF: 1 losartan-hydrochlorothiazide 50-12.5 mg tablet 1 tab PO DAILY Qty: 90 RF: 1 gabapentin 300 mg capsule 300 mg PO TID Qty: 270 RF: 1 metformin 500 mg tablet 500 mg PO BID Qty: 180 RF: 1 Prilosec OTC 20 mg tablet,delayed release (DR/EC) 20 mg PO DAILY Qty: 90 RF: 1 potassium citrate 10 mEq (1,080 mg) tablet extended release 10 meq PO BID Qty: 180 RF: 3 (DME) OneTouch Ultra Blue Test Strip Strip See Dose Instructions .ROUTE .MEDSUPPLY Qty: 300 RF: 3 famotidine 20 mg tablet 20 mg PO BID Qty: 180 RF: 0 ondansetron 4 mg tablet,disintegrating 4 mg PO DAILY PRN (Reason: Nausea) Qty: 90 RF: 0 naproxen [Naprosyn] 500 mg tablet 250 mg PO DAILY PRN (Reason: pain (scale score 7-10)) Qty: 20 RF: 0 cholecalciferol (vitamin D3) [Vitamin D3] 2,000 unit tablet 2,000 unit PO DAILY Qty: 90 RF: 0 ascorbic acid (vitamin C) 500 mg tablet 500 mg PO DAILY RF: 0 Refresh Tears 0.5 % drops 1 drp OPB QAM RF: 0 betamethasone dipropionate 0.05 % cream 1 appln TOP BID PRN (Reason: skin irritation/itchiness) Qty: 45 RF: 0 travoprost [Travatan Z] 0.004 % Drops 1 drp OPB PM RF: 0 aspirin 81 mg Tablet,Delayed Release (Dr/Ec) 81 mg PO DAILY RF: 0 ferrous sulfate 325 mg (65 mg iron) Tablet 325 mg PO DAILY RF: 0 cyanocobalamin (vitamin B-12) [Vitamin B-12] 2,000 mcg Tablet Extended Release 2,000 mcg PO DAILY RF: 0 copper gluconate 2 mg Capsule 2 mg PO DAILY RF: 0 prochlorperazine maleate 5 mg tablet 5 mg PO Q6H PRN (Reason: nausea and vomiting) Qty: 14 RF: 0 Referrals Referrals: Vivian Humphrey DO [Primary Care Provider] -
[2020-11-13] MEDS ORDERED: ONDANSETRON INJ 2 MG/ML 2 ML VIAL IV STA (22:40)
[2020-11-13 22:57] LABS: Basophils # (auto) 0.04 K/uL (0-0.2); Basophils % (auto) 0.8 %; Eosinophils # (auto) 0.13 K/uL (0-0.5); Eosinophils % (auto) 2.7 %; Hematocrit (blood only) 35.3 % (37-47); Lymphocytes # (auto) 0.67 K/uL (1.2-3.4); Lymphocytes % (auto) 13.7 %; Mean Corpuscular Hemoglobin 35.5 pg (25-34); Mean Corpuscular Volume 104.4 fL (80-100); Mean Platelet Volume 9.7 fL (7.4-10.4); Monocytes # (auto) 0.69 K/uL (0.11-0.59); Monocytes % (auto) 14.1 %; Neutrophils # (auto) 3.35 K/uL (1.4-6.5); Neutrophils % (auto) 68.7 %; Platelet Count 115 K/uL (130-400); RDW Coefficient of Variation 14.7 % (11.5-14.5); RDW Standard Deviation 55.4 fL (36.4-46.3); Red Blood Count 3.38 M/uL (4.2-5.4); White Blood Count 4.88 K/uL (4.8-10.8)
[2020-11-13 23:11] LABS: INR 1.1 (0.9-1.1); Partial Thromboplastin Ratio 0.9; Partial Thromboplastin Time 24.8 Seconds (21.0-31.0); Prothrombin Time 10.7 Seconds (9.0-12.0)
[2020-11-13 23:13] LABS: Alanine Aminotransferase 18 U/L (12-78); Albumin Level 3.7 gm/dl (3.4-5.0); Aspartate Aminotransferase 15 U/L (15-37); BUN Creatinine Ratio 27.8 (10-20); Blood Urea Nitrogen 26 mg/dl (7-18); Carbon Dioxide 27 mmol/L (21-32); Chloride 108 mmol/L (98-107); Est GFR (African American) 62.8 ml/min; Est GFR (Non-African American) 54.2 ml/min; Glucose 193 mg/dl (70-99); Magnesium 1.9 mg/dl (1.8-2.4); Sodium 142 mmol/L (136-145)
[2020-11-13 23:18] LABS: Albumin Globulin Ratio 1.1 (0.9-2); Alkaline Phosphatase 73 U/L (45-117); Bilirubin,Total 0.7 mg/dl (0.2-1); Globulin 3.4 gm/dl (2.5-4.0); Total Protein 7.1 gm/dl (6.4-8.2); Troponin I < 0.015 ng/ml (0-0.045)
[2020-11-13] MEDS ORDERED: OPTIRAY 350 500ml IV ONE (23:26)
[2020-11-13 23:56] LABS: Appearance Urine Clear (Clear); Bacteria Urine Automated Negative (Negative); Bilirubin Urine Negative (Negative); Blood Urine Negative (Negative); Cast Urine Automated 0 /lpf (0-5); Color Urine Yellow; Glucose Urine UA Negative (Negative); Ketones Urine Negative (Negative); Leukocyte Esterase Urine Negative (Negative); Nitrite Urine Negative (Negative); Protein Urine 1+ (Negative); RBC Urine Automated 0-4 /hpf (0-4); Specific Gravity Urine 1.012 (1.000-1.030); Urobilinogen Urine Negative (Negative)
--- NOTE | 2020-11-14 03:28 | History & Physical Report ---
Date of Service November 14, 2020 Assessment & Plan (1) Acute CVA (cerebrovascular accident): -NIHSS and Neuro checks per protocol -Check 2D echo -Check A1C and Lipid panel -Change ASA to Plavix 75mg daily -Increase Simvastatin to 40mg daily -PT/OT evaluation -Neurology consultation per protocol appreciated Present on Admission?: Yes (2) Type 2 diabetes mellitus: Mildly elevated blood sugar at present -Check A1C -Hold Metformin -Lantus 20u qAM and 45u qHS -Continue Gabapentin - patient had been on Neurontin 300mg TID. She has been weaning this outpatient and is currently on 300mg daily -Continue Gabapentin 300mg daily Present on Admission?: Yes (3) Mild cognitive impairment: Chronic. Patient is oriented x 4. Able to answer questions appropriately and follow commands. -Continue Aricept 10mg po daily -Frequent orientation Present on Admission?: Yes (4) Low serum copper for age: Patient on copper supplementation -Will hold for now, resume on discharge Present on Admission?: Yes (5) Hypothyroidism: Chronic -Continue Synthroid 75mcg daily Present on Admission?: Yes (6) Hypertension: Blood pressure mildly elevated -Continue Losartan-HCTZ -Continue Metoprolol 25mg daily Present on Admission?: Yes (7) Dyslipidemia: Chronic -Increase Simvastatin to 40mg daily Present on Admission?: Yes (8) Depression: Chronic -Continue Fluoxetine 10mg po daily Present on Admission?: Yes (9) Chronic reflux esophagitis: Chronic. Stable -Continue Famotidine 20mg po BID -Continue Omeprazole Present on Admission?: Yes History of Present Illness Chief Complaint: CVA Primary Care Provider: Vivian Humphrey DO [place] Liza is an 89yo female presenting with 2-3 months of intermittent neurological symptoms. Patient states that over the last 2-3 months she has had difficulty with balance, word-finding issues, slurred speech as well as occasional facial droop and drooling from her right side. She has also had several occasions of sharp pain in her head. Patient has been following with her PCP for these above complaints. She had an MRI performed yesterday which demonstrated an acute punctate infarct of the right parietal lobe. She was referred to [facility] for continued workup. In the ER patient hypertensive at 184/93, otherwise stable. Patient complains of SOB/BROWN at baseline, otherwise no complaints. Allergies Allergy/AdvReac Type Severity Reaction Status Date / Time lisinopril AdvReac Intermediate COUGH Verified 11/13/20 23:31 Sulfa (Sulfonamide AdvReac Intermediate VOMITING Verified 11/13/20 23:31 Antibiotics) Home Medications Medication Instructions Recorded Confirmed Type aspirin 81 mg PO DAILY 09/05/18 11/13/20 History copper gluconate 2 mg PO DAILY 09/05/18 11/13/20 History cyanocobalamin (vitamin B-12) 2,000 mcg PO DAILY 09/05/18 11/13/20 History [Vitamin B-12] ferrous sulfate 325 mg PO DAILY 09/05/18 11/13/20 History travoprost [Travatan Z] 1 drp OPB PM 09/05/18 11/13/20 History cholecalciferol (vitamin D3) 50 2,000 unit PO DAILY #90 tab 01/12/19 11/13/20 Rx mcg (2,000 unit) tablet betamethasone dipropionate 0.05 % 1 appln TOP BID PRN #45 gm 02/27/19 11/13/20 Rx topical cream ascorbic acid (vitamin C) 500 mg 500 mg PO DAILY tab 03/12/19 11/13/20 History tablet carboxymethylcellulose sodium 0.5 1 drp OPB QAM 03/13/19 11/13/20 History % eye drops blood-glucose meter #1 ea 06/10/20 10/27/20 Rx donepezil 10 mg tablet 10 mg PO DAILY #90 tab 06/19/20 11/13/20 Rx levothyroxine 75 mcg tablet 75 mcg PO DAILY #90 tab 06/19/20 11/13/20 Rx mirabegron 50 mg tablet,extended 50 mg PO DAILY #90 tab 06/19/20 11/13/20 Rx release 24 hr insulin glargine 100 unit/mL (3 See Rx Instructions .ROUTE 06/30/20 11/13/20 Rx mL) subcutaneous pen .COMPLEX #90 ml allopurinol 100 mg tablet 100 mg PO DAILY #90 tab 07/07/20 11/13/20 Rx prochlorperazine maleate 5 mg PO Q6H PRN #14 tab 07/07/20 11/13/20 Rx simvastatin 20 mg tablet 20 mg PO DAILY #90 tab 07/08/20 11/13/20 Rx famotidine 20 mg tablet 20 mg PO BID #180 tab 07/15/20 11/13/20 Rx metoprolol succinate 25 mg 25 mg PO DAILY #90 tab 07/15/20 11/13/20 Rx tablet,extended release 24 hr lancets 30 gauge #200 ea 07/23/20 10/27/20 Rx pen needle, diabetic 32 gauge x #200 ea 07/23/20 10/27/20 Rx 1/4" naproxen 500 mg tablet 250 mg PO DAILY PRN #20 tab 08/12/20 11/13/20 Rx fluoxetine 10 mg capsule 10 mg PO DAILY #90 cap 09/15/20 11/13/20 Rx trospium 20 mg tablet 20 mg PO BID #180 tab 09/16/20 11/13/20 Rx losartan 50 mg-hydrochlorothiazide 1 tab PO DAILY #90 tab 09/24/20 11/13/20 Rx 12.5 mg tablet gabapentin 300 mg capsule 300 mg PO TID #270 cap 09/25/20 11/13/20 Rx metformin 500 mg tablet 500 mg PO BID #180 tab 09/29/20 11/13/20 Rx omeprazole magnesium 20 mg 20 mg PO DAILY #90 tab 10/07/20 11/13/20 Rx tablet,delayed release potassium citrate 10 mEq (1,080 10 meq PO BID #180 tab 10/16/20 11/13/20 Rx mg) tablet,extended release blood sugar diagnostic #300 ea 10/20/20 10/27/20 Rx ondansetron 4 mg disintegrating 4 mg PO DAILY PRN #90 tab 10/27/20 11/13/20 Rx tablet 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 Cerebral atherosclerosis Choledocholithiasis Chronic lower back pain Chronic reflux esophagitis Compression fracture of thoracic vertebra Depression Dyslipidemia Fibromyalgia Glaucoma Hemorrhoids, internal Hepatic steatosis History of gastric ulcer History of gastritis Erosive History of TIA (transient ischemic attack) Hypercalcemia Hypertension Hypothyroidism IBS (irritable bowel syndrome) Leukopenia Low serum copper for age Lumbar stenosis with neurogenic claudication Mild cognitive impairment Night sweats Obstructive sleep apnea Osteoarthritis Osteopenia Pancytopenia Renal cyst Sensorineural hearing loss (SNHL) of both ears Thrombocytopenia Type 2 diabetes mellitus Urinary calculus Urinary incontinence Ventral hernia Vitamin B12 deficiency Vitamin D deficiency Surgical History History of cataract surgery right eye History of cholecystectomy History of colonoscopy History of knee replacement History of tonsillectomy S/P panniculectomy (02/20/19) 02/20/19 at [facility]- Lower abdominal panniculectomy with Dr. Mancia Status post laminectomy Family History Father Cardiac disorder Hypertension Kidney stones Prostate cancer Hearing loss Family/Other Cardiac disorder Hypertension Kidney stones Mother Dementia Hypertension Brother Dementia Lung cancer Myocardial infarction Aunt Breast cancer Other No family history of adverse response to anesthesia No family history of bleeding disorder Denies family history of Ovarian cancer Crohn's disease Colorectal cancer Social History Smoking Status: Never smoker Second Hand Exposure: No; Hx Alcohol Use: No Hx Substance Use: No Preferred Language: Uzbek Communication Ability: Effective Visual Impairment: Limited Hearing Ability: Use of Hearing Aid Beliefs That Will Affect Care: None marital status: Current Living Situation: Spouse current occupational status: retired Feels Safe at Home: Yes Childhood Exposure to Second-Hand Smoke: No caffeine: Yes (Tea 1 cup per day.) during the past year weight has: remained stable Dental Care, Regularly: Yes Physical Activity Frequency: Does not Exercise Seatbelt Use: always Sunscreen Use: No Review of Systems Review of Systems: All systems reviewed & are unremarkable except as noted in HPI & below Physical Exam Physical Exam: General: patient resting comfortably, NAD, non-toxic in appearance, AA&O x 4 Skin: warm, dry, intact, no rashes or lesions HEENT: NC/AT, Pupils small, equal bilaterally, reactive to light, EOMI, anicteric sclera, conjunctiva without injection, external ear normal to inspection and nontender, nares patent, moist mucus membranes, black hairy tongue, dentures in place, no oropharyngeal lesions, neck supple, trachea midline, no LAD, no thyromegaly, no JVD Heart: +S1/S2, regular, no m/r/g Lungs: equal air entry bilaterally, no rales/rhonchi/wheezes Abd: +BS, soft, NT/ND, no masses/organomegaly/ascites Ext: warm, 2+ pulses in UE/LE bilaterally, no clubbing/cyanosis, 2+ edema of bilateral LE Neuro: AA&O x 4, speech clear, word finding issues, no facial droop, patient with visual deficit at baseline, hearing aides in place, decreased sensation on right side of face V1-V3, moving all extremities on command with equal strength 5/5 Results & Data Results & Data ([facility]) Vital Signs (Past 12 Hours) Vital Signs Temp Pulse Resp BP Pulse Ox 11/14/20 02:30 101 H 22 94 11/14/20 02:00 98 H 24 159/98 H 94 11/14/20 01:30 99 H 19 171/90 H 94 11/14/20 01:00 99 H 21 175/94 H 94 11/14/20 00:30 99 H 22 191/96 H 94 11/14/20 00:00 96 H 22 183/88 H 94 11/13/20 23:55 96 H 20 180/87 H 92 11/13/20 23:06 94 H 24 94 11/13/20 23:00 93 H 22 186/90 H 94 11/13/20 22:08 36.7 C 97 H 18 184/93 H 94 Laboratory Results Laboratory Results WBC 4.88 K/uL (4.8-10.8) 11/13/20 22:48 RBC 3.38 M/uL (4.2-5.4) L 11/13/20 22:48 Hgb 12.0 g/dL (12.0-16.0) 11/13/20 22:48 Hct 35.3 % (37-47) L 11/13/20 22:48 MCV 104.4 fL (80-100) H 11/13/20 22:48 MCH 35.5 pg (25-34) H 11/13/20 22:48 MCHC 34.0 g/dL (32-36) 11/13/20 22:48 RDW Std Deviation 55.4 fL (36.4-46.3) H 11/13/20 22:48 RDW Coeff of Gillian 14.7 % (11.5-14.5) H 11/13/20 22:48 Plt Count 115 K/uL (130-400) L 11/13/20 22:48 MPV 9.7 fL (7.4-10.4) 11/13/20 22:48 Immature Gran % (Auto) 0.0 % 11/13/20 22:48 Neut % (Auto) 68.7 % 11/13/20 22:48 Lymph % (Auto) 13.7 % 11/13/20 22:48 Ellis % (Auto) 14.1 % 11/13/20 22:48 Eos % (Auto) 2.7 % 11/13/20 22:48 Baso % (Auto) 0.8 % 11/13/20 22:48 Neut # (Auto) 3.35 K/uL (1.4-6.5) 11/13/20 22:48 Lymph # (Auto) 0.67 K/uL (1.2-3.4) L 11/13/20 22:48 Ellis # (Auto) 0.69 K/uL (0.11-0.59) H 11/13/20 22:48 Eos # (Auto) 0.13 K/uL (0-0.5) 11/13/20 22:48 Baso # (Auto) 0.04 K/uL (0-0.2) 11/13/20 22:48 Immature Gran # (Auto) 0.00 K/uL (0.00-0.02) 11/13/20 22:48 PT 10.7 Seconds (9.0-12.0) 11/13/20 22:48 INR 1.1 (0.9-1.1) 11/13/20 22:48 APTT 24.8 Seconds (21.0-31.0) 11/13/20 22:48 PTT Ratio 0.9 11/13/20 22:48 Sodium 142 mmol/L (136-145) 11/13/20 22:48 Potassium 4.0 mmol/L (3.5-5.1) 11/13/20 22:48 Chloride 108 mmol/L (98-107) H 11/13/20 22:48 Carbon Dioxide 27 mmol/L (21-32) 11/13/20 22:48 Anion Gap 7.0 (3-11) 11/13/20 22:48 BUN 26 mg/dl (7-18) H 11/13/20 22:48 Creatinine 0.94 mg/dl (0.6-1.2) 11/13/20 22:48 Est Cr Clr Drug Dosing Not Reportable 11/13/20 22:48 Est GFR ( Amer) 62.8 ml/min 11/13/20 22:48 Est GFR (Non-Af Amer) 54.2 ml/min 11/13/20 22:48 BUN/Creatinine Ratio 27.8 (10-20) H 11/13/20 22:48 Glucose 193 mg/dl (70-99) H 11/13/20 22:48 Calcium 9.0 mg/dl (8.5-10.1) 11/13/20 22:48 Magnesium 1.9 mg/dl (1.8-2.4) 11/13/20 22:48 Total Bilirubin 0.7 mg/dl (0.2-1) 11/13/20 22:48 AST 15 U/L (15-37) 11/13/20 22:48 ALT 18 U/L (12-78) 11/13/20 22:48 Alkaline Phosphatase 73 U/L (45-117) 11/13/20 22:48 Troponin I < 0.015 ng/ml (0-0.045) 11/13/20 22:48 Total Protein 7.1 gm/dl (6.4-8.2) 11/13/20 22:48 Albumin 3.7 gm/dl (3.4-5.0) 11/13/20 22:48 Globulin 3.4 gm/dl (2.5-4.0) 11/13/20 22:48 Albumin/Globulin Ratio 1.1 (0.9-2) 11/13/20 22:48 Urine Color Yellow 11/13/20 23:38 Urine Appearance Clear (Clear) 11/13/20 23:38 Urine pH 7.0 (4.5-7.5) 11/13/20 23:38 Ur Specific [place] 1.012 (1.000-1.030) 11/13/20 23:38 Urine Protein 1+ (Negative) H 11/13/20 23:38 Urine Glucose (UA) Negative (Negative) 11/13/20 23:38 Urine Ketones Negative (Negative) 11/13/20 23:38 Urine Blood Negative (Negative) 11/13/20 23:38 Urine Nitrite Negative (Negative) 11/13/20 23:38 Urine Bilirubin Negative (Negative) 11/13/20 23:38 Urine Urobilinogen Negative (Negative) 11/13/20 23:38 Ur Leukocyte Esterase Negative (Negative) 11/13/20 23:38 Urine WBC (Auto) 1-5 /hpf (0-5) 11/13/20 23:38 Urine RBC (Auto) 0-4 /hpf (0-4) 11/13/20 23:38 U Hyaline Cast (Auto) 0 /lpf (0-5) 11/13/20 23:38 U Epithel Cells (Auto) 5-10 /lpf (0-5) H 11/13/20 23:38 Urine Bacteria (Auto) Negative (Negative) 11/13/20 23:38 COVID-19 Eval Order Covid19 at [facility] 11/13/20 23:58 SARS-CoV-2 (PCR) NEGATIVE (Negative) 11/13/20 23:58 Blood Type O Positive 11/13/20 22:48 Antibody Screen NEGATIVE 11/13/20 22:48 PG Care Time/CCT Total # of Minutes Spent Total Time Spent with Patient: Total time spent is greater than 50% in coordination of care (as documented) at patient's floor/unit and/or counseling patient: Coding Level of Care Code 60291 OBS Care - Level 3 Diagnoses Acute CVA (cerebrovascular accident) I63.9 Type 2 diabetes mellitus E11.42; Z79.4 Diabetes mellitus terminal clerk insulin use: with usp use Diabetes mellitus complication status: with neurologic complications Diabetes mellitus complication detail: with polyneuropathy Mild cognitive impairment G31.84 Low serum copper for age R79.0 Hypothyroidism E03.9 Hypothyroidism type: unspecified Hypertension I10 Hypertension type: essential hypertension Dyslipidemia E78.5 Depression F32.9 Depression Type: major depressive disorder Major depression recurrence: unspecified whether recurrent Active/Remission status: remission status unspecified Chronic reflux esophagitis K21.0 (1) Type 2 diabetes mellitus Diabetes mellitus usp insulin use: with terminal clerk use Diabetes mellitus complication status: with neurologic complications Diabetes mellitus complication detail: with polyneuropathy Qualified Code(s): E11.42 - Type 2 diabetes mellitus with diabetic polyneuropathy; Z79.4 - nursing home (current) use of insulin (2) Hypothyroidism Hypothyroidism type: unspecified Qualified Code(s): E03.9 - Hypothyroidism, unspecified (3) Hypertension Hypertension type: essential hypertension Qualified Code(s): I10 - Essential (primary) hypertension (4) Depression Depression Type: major depressive disorder Major depression recurrence: unspecified whether recurrent Active/Remission status: remission status unspecified Qualified Code(s): F32.9 - Major depressive disorder, single episode, unspecified
[2020-11-14] MEDS ORDERED: DEXTROSE 50% 50 ML SYRINGE IV PRN (03:35)
[2020-11-14] MEDS ORDERED: GLUCAGON FOR INJ 1 MG VIAL SQ PRN (03:35)
[2020-11-14] MEDS ORDERED: CARBOHYDRATES FOR HYPOGLYCEMIA PO PRN (03:35)
[2020-11-14] MEDS ORDERED: GLUCOSE 40% GEL 15 GM TUBE PO PRN (03:35)
[2020-11-14] MEDS ORDERED: GLUCOSE 10 TABS/TUBE PO PRN (03:35)
[2020-11-14] MEDS: LEVOTHYROXINE SODIUM 75 MCG TABLET PO SCH (06:16)
[2020-11-14 06:26] LABS: Basophils # (auto) 0.01 K/uL (0-0.2); Basophils % (auto) 0.2 %; Eosinophils # (auto) 0.11 K/uL (0-0.5); Eosinophils % (auto) 2.2 %; Hematocrit (blood only) 34.5 % (37-47); Hemoglobin 11.8 g/dL (12.0-16.0); Immature Granulocytes # (auto) 0.01 K/uL (0.00-0.02); Immature Granulocytes % (auto) 0.2 %; Lymphocytes # (auto) 0.79 K/uL (1.2-3.4); Lymphocytes % (auto) 16.1 %; Mean Corpuscular Hemoglobin 35.8 pg (25-34); Mean Corpuscular Hgb Conc 34.2 g/dL (32-36); Mean Corpuscular Volume 104.5 fL (80-100); Mean Platelet Volume 9.7 fL (7.4-10.4); Monocytes # (auto) 0.69 K/uL (0.11-0.59); Neutrophils # (auto) 3.31 K/uL (1.4-6.5); Neutrophils % (auto) 67.3 %; Platelet Count 105 K/uL (130-400); RDW Coefficient of Variation 14.7 % (11.5-14.5); RDW Standard Deviation 55.8 fL (36.4-46.3); White Blood Count 4.92 K/uL (4.8-10.8)
[2020-11-14 07:03] LABS: BUN Creatinine Ratio 26.1 (10-20); Calcium 8.9 mg/dl (8.5-10.1); Creatinine Clr Calc Pharmacy 50.8 ml/min; Est GFR (African American) 75.2 ml/min; Est GFR (Non-African American) 64.8 ml/min; Potassium 3.8 mmol/L (3.5-5.1)
--- NOTE | 2020-11-14 07:17 | CT Scan Report ---
CT SCAN OF THE BRAIN WITHOUT IV CONTRAST CLINICAL HISTORY: Strokelike symptoms. COMPARISON STUDY: CT of the brain dated 07/07/2020. TECHNIQUE: Unenhanced axial CT scan of the brain is performed from the vertex to the skull base. A do se lowering technique was utilized adhering to the principles of ALARA. FINDINGS: Brain parenchyma: There are age-related involutional changes noting moderate subcortical and periven tricular microangiopathic change. There is no hemorrhage, mass effect, or evidence of acute territori al ischemia by CT criteria. Brown-white matter differentiation is preserved. No extra-axial fluid alley ection is seen. Ventricles, sulci, cisterns: Prominent secondary to involutional change. Intracranial vasculature: There is atherosclerotic calcification of the cavernous carotid arteries. Calvarium: Unremarkable. Sinuses and mastoids: A 1.9 cm retention cyst is noted in the right maxillary antrum. The remaining v isualized paranasal sinuses are clear. The mastoid air cells are well pneumatized. Orbits: The bony orbits are grossly intact. There is a right ocular lens implant. IMPRESSION: There is no hemorrhage, mass effect, or evidence of acute territorial ischemia by CT sabra loya. ACT 112: Negative or not required by law. Electronically signed by: Yfn De Santiago M.D. 11/14/2020 7:16 AM
[2020-11-14 07:41] LABS: Estimated Average Glucose 123 mg/dl; Hemoglobin A1C 5.9 % (4.5-5.6)
--- NOTE | 2020-11-14 07:59 | XRay Report ---
SINGLE VIEW CHEST CLINICAL HISTORY: Strokelike symptoms. FINDINGS: An AP, portable, upright chest radiograph is compared to study dated 09/11/2020. The heart is enlarged noting atherosclerotic calcification and uncoiling of the thoracic aorta. The pulmonary vas culature is noncongested. Chronic interstitial thickening is similar to previous. There is bibasilar scarring/atelectasis. No airspace consolidation or large pleural effusion is identified. No pneumotho rax is seen. The skeletal structures are osteopenic. The bony thorax is grossly intact. Degenerative change is noted in the shoulders and thoracic spine. IMPRESSION: Cardiomegaly with no acute cardiopulmonary abnormality. ACT 112: Negative or not required by law. Electronically signed by: Yfn De Santiago M.D. 11/14/2020 7:58 AM
--- NOTE | 2020-11-14 08:05 | CT Scan Report ---
CT ANGIOGRAPHY OF THE NECK WITH CONTRAST CLINICAL HISTORY: Stroke Like Symptoms COMPARISON STUDY: CTA of the neck July 07, 2020. Technique: CT angiography of the carotid and vertebral arteries was obtained using Opt[employer] and 3D rec onstruction on an independent workstation. NASCET criteria was utilized. Automated exposure control was utilized for the study. A dose lowering technique was utilized adhering to the principles of ALA RA. Findings: Visualized portions of the lungs are unremarkable. There is no cervical spine fracture. The re is no cervical lymphadenopathy. Moderate cardiomegaly is noted. The bilateral common carotid, cerv ical internal carotid and vertebral arteries are patent. There is no stenosis or dissection within th aleksandr vessels. Mild atherosclerotic plaque is present. No intraluminal thrombus is present. There is no aneurysm within the neck. IMPRESSION: No stenosis or dissection within the bilateral common carotid, cervical internal carotid or vertebral arteries. ACT 112: Negative or not required by law. Electronically signed by: Hamilton Gallagher M.D. 11/14/2020 8:04 AM
--- NOTE | 2020-11-14 08:07 | Electrocardiogram Report ---
Test Reason : Blood Pressure : / mmHG Vent. Rate : 093 BPM Atrial Rate : 093 BPM P-R Int : 200 ms QRS Dur : 136 ms QT Int : 414 ms P-R-T Axes : 085 008 033 degrees QTc Int : 514 ms Normal sinus rhythm Right bundle branch block Abnormal ECG When compared with ECG of 07-JUL-2020 07:40, No significant change was found Confirmed by Klaus Ballard ([id number]) on 11/14/2020 8:06:34 AM Referred By: Vivian Humphrey Confirmed By:Klaus Ballard
--- NOTE | 2020-11-14 08:23 | CT Scan Report ---
HEAD CTA HISTORY: Stroke Like Symptoms TECHNIQUE: Multiaxial CT images of the head were performed both before and after the intravenous admi nistration of contrast to evaluate the major cerebral vessels. Maximum intensity projection images we re also obtained. A dose lowering technique was utilized adhering to the principles of ALARA. COMPARISON: Head CT 07/07/2020. FINDINGS: There is no mass, hematoma, midline shift, or acute infarct. Visualized intracranial product management internship al carotid arteries, distal vertebral arteries, and basilar artery are widely patent. There is no sig nificant stenosis, occlusion, or aneurysm seen within the bilateral ACAs, MCAs, or post acute care nurse practitioner. The major du ral venous sinuses are patent. Mild calcified plaque within the bilateral carotid siphons. IMPRESSION: No significant stenosis, occlusion, or aneurysm within the [place]. ACT 112: Negative or not required by law. Electronically signed by: Eduard Huerta M.D. 11/14/2020 8:21 AM
--- NOTE | 2020-11-14 08:38 | Neurology Consultation ---
Date of Consultation November 14, 2020 Assessment & Plan (1) Acute CVA (cerebrovascular accident): (2) Slurred speech: (3) Dizziness: (4) Sensorineural hearing loss (SNHL) of both ears: (5) Mild cognitive impairment: (6) Chronic lower back pain: (7) Hypertension: patient has a very tiny acute right posterior parietal stroke. This is so small that I do not believe it relates to anything clinically. Her dysarthria and issues are chronic and likely related to her age and significant chronic cerebral ischemia. She may have some mild cognitive impairment secondary to vascular changes as well Cerebral vasculature is unremarkable. Echocardiogram is pending. She does not have an cardiac rhythm. She has hypertension, dyslipidemia, and diabetes which are risk factors for small-vessel ischemic disease. In addition she has a history of B12 deficiency and has an elevated MCV. Recommendations: 1. physical, occupational, and speech therapy. Increase activity as able and consider rehab hospital stay. 2. Discontinue aspirin and continue clopidogrel 75 mg daily. 3. Awaiting echocardiogram results. 4. Keep hydrated ( she was somewhat dehydrated on admission). 5. Control blood pressure as you are doing aiming for a mean arterial pressure of approximately 100. 6. glucose is fairly well controlled. 7. the patient has lipids which are nicely controlled on simvastatin 40. I would keep the dose the same and she is not a high dose statin candidate 8. Check B12 and vitamin-D levels. Overall, I spent a total of 60 minutes with this case including review of records, review of MRI films, direct evaluation patient bedside, and discussing the case with Dr. Vinson , including differential diagnosis and treatment options. History of Present Illness Reason for Consultation: Patient is an 89-year-old, who I was asked to see at the request of Dr. hWitney for neurologic consultation regarding stroke Requesting Physician: Dr. Whitney Attending Physician: Vivienne Vinson MD History of Present Illness patient has a history of speech issues dating back to 2019. MRIs have showed moderate generalized cerebral atrophy and moderate old small vessel ischemic disease diffusely. She has been on 81 mg aspirin tablet daily. The patient has had word-finding difficulties intermittently for a year. This has gotten worse over the last 2-3 months and she feels that she has been somewhat lightheaded with balance issues. She is not falling. More recently she has had nausea and swelling in her legs. patient had an MRI of the brain during the day November 13, 2020. It showed a very tiny new right posterior parietal stroke with the atrophy and ischemia a moderate nature as before. I reviewed this film and this is a punctate lesion. She was advised to go to the emergency. She arrived to the emergency room November 13 at 2208, with a temperature 36.7, pulse 97 and regular, respiratory rate 18, blood pressure 184/93, and O2 saturation 94% She had slurred speech on exam but no other focal findings. CT scan of the head showed no acute changes. CT angiography of the head and neck showed no significant vessel anomalies or stenoses diffusely. Echocardiogram was performed today and the results are pending. Because of the patient's chronic low back pain and lower extremity issues ( post lumbar spinal surgery in the past) an MRI of the lumbar spine was obtained and the report is pending. she has had no further neurologic events and was given clopidogrel 75 mg daily. CBC showed elevated MCV. Chem profile showed an elevated glucose of 193 and elevated BUN. Hemoglobin A1c was 5.9. Triglycerides 138 total cholesterol 132. BUN and glucose were improved today with. She is stable this morning with no pain or headache, dizziness, vision issues, nausea, weakness, or numbness. Her speech is still slurred but this is chronic. She feels that her balance is "off" But she does not. Allergies Allergy/AdvReac Type Severity Reaction Status Date / Time lisinopril AdvReac Intermediate COUGH Verified 11/13/20 23:31 Sulfa (Sulfonamide AdvReac Intermediate VOMITING Verified 11/13/20 23:31 Antibiotics) Home Medications Medication Instructions Recorded Confirmed Type aspirin 81 mg PO DAILY 09/05/18 11/13/20 History copper gluconate 2 mg PO DAILY 09/05/18 11/13/20 History cyanocobalamin (vitamin B-12) 2,000 mcg PO DAILY 09/05/18 11/13/20 History [Vitamin B-12] ferrous sulfate 325 mg PO DAILY 09/05/18 11/13/20 History travoprost [Travatan Z] 1 drp OPB PM 09/05/18 11/13/20 History cholecalciferol (vitamin D3) 50 2,000 unit PO DAILY #90 tab 01/12/19 11/13/20 Rx mcg (2,000 unit) tablet betamethasone dipropionate 0.05 % 1 appln TOP BID PRN #45 gm 02/27/19 11/13/20 Rx topical cream ascorbic acid (vitamin C) 500 mg 500 mg PO DAILY tab 03/12/19 11/13/20 History tablet carboxymethylcellulose sodium 0.5 1 drp OPB QAM 03/13/19 11/13/20 History % eye drops blood-glucose meter #1 ea 06/10/20 10/27/20 Rx donepezil 10 mg tablet 10 mg PO DAILY #90 tab 06/19/20 11/13/20 Rx levothyroxine 75 mcg tablet 75 mcg PO DAILY #90 tab 06/19/20 11/13/20 Rx mirabegron 50 mg tablet,extended 50 mg PO DAILY #90 tab 06/19/20 11/13/20 Rx release 24 hr insulin glargine 100 unit/mL (3 See Rx Instructions .ROUTE 06/30/20 11/13/20 Rx mL) subcutaneous pen .COMPLEX #90 ml allopurinol 100 mg tablet 100 mg PO DAILY #90 tab 07/07/20 11/13/20 Rx prochlorperazine maleate 5 mg PO Q6H PRN #14 tab 07/07/20 11/13/20 Rx simvastatin 20 mg tablet 20 mg PO DAILY #90 tab 07/08/20 11/13/20 Rx famotidine 20 mg tablet 20 mg PO BID #180 tab 07/15/20 11/13/20 Rx metoprolol succinate 25 mg 25 mg PO DAILY #90 tab 07/15/20 11/13/20 Rx tablet,extended release 24 hr lancets 30 gauge #200 ea 07/23/20 10/27/20 Rx pen needle, diabetic 32 gauge x #200 ea 07/23/20 10/27/20 Rx 1/4" naproxen 500 mg tablet 250 mg PO DAILY PRN #20 tab 08/12/20 11/13/20 Rx fluoxetine 10 mg capsule 10 mg PO DAILY #90 cap 09/15/20 11/13/20 Rx trospium 20 mg tablet 20 mg PO BID #180 tab 09/16/20 11/13/20 Rx losartan 50 mg-hydrochlorothiazide 1 tab PO DAILY #90 tab 09/24/20 11/13/20 Rx 12.5 mg tablet gabapentin 300 mg capsule 300 mg PO TID #270 cap 09/25/20 11/13/20 Rx metformin 500 mg tablet 500 mg PO BID #180 tab 09/29/20 11/13/20 Rx omeprazole magnesium 20 mg 20 mg PO DAILY #90 tab 10/07/20 11/13/20 Rx tablet,delayed release potassium citrate 10 mEq (1,080 10 meq PO BID #180 tab 10/16/20 11/13/20 Rx mg) tablet,extended release blood sugar diagnostic #300 ea 10/20/20 10/27/20 Rx ondansetron 4 mg disintegrating 4 mg PO DAILY PRN #90 tab 10/27/20 11/13/20 Rx tablet Patient History Medical History Age-related macular degeneration Anemia, iron deficiency 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 Cerebral atherosclerosis Choledocholithiasis Chronic lower back pain Chronic reflux esophagitis Compression fracture of thoracic vertebra Depression Dyslipidemia Fibromyalgia Glaucoma Hemorrhoids, internal Hepatic steatosis History of gastric ulcer History of gastritis Erosive History of TIA (transient ischemic attack) Hypercalcemia Hypertension Hypothyroidism IBS (irritable bowel syndrome) Leukopenia Low serum copper for age Lumbar stenosis with neurogenic claudication Mild cognitive impairment Night sweats Obstructive sleep apnea Osteoarthritis Osteopenia Pancytopenia Renal cyst Sensorineural hearing loss (SNHL) of both ears Thrombocytopenia Type 2 diabetes mellitus Urinary calculus Urinary incontinence Ventral hernia Vitamin B12 deficiency Vitamin D deficiency Surgical History History of cataract surgery right eye History of cholecystectomy History of colonoscopy History of knee replacement History of tonsillectomy S/P panniculectomy (02/20/19) 02/20/19 at [facility]- Lower abdominal panniculectomy with Dr. Mancia Status post laminectomy Family History Father , 81 from cancer Cardiac disorder Hypertension Kidney stones Prostate cancer Hearing loss Family/Other Cardiac disorder Hypertension Kidney stones Mother , age 98 with a senile dementia of the Alzheimer's type Dementia Hypertension Brother Dementia Lung cancer Myocardial infarction Aunt Breast cancer Other No family history of adverse response to anesthesia No family history of bleeding disorder Denies family history of Ovarian cancer Crohn's disease Colorectal cancer Social History Smoking Status: Never smoker Second Hand Exposure: No; Hx Alcohol Use: No Hx Substance Use: No Preferred Language: Swedish Communication Ability: Effective Visual Impairment: Limited Hearing Ability: Use of Hearing Aid Special Education Teachers Required: No Beliefs That Will Affect Care: None marital status: Current Living Situation: Alone Current Living Situation Comment: 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 Other Information That Helps Us Care for You: No Feels Safe at Home: Yes Safety Concerns: Feels Safe At This Time Childhood Exposure to Second-Hand Smoke: No caffeine: Yes (Tea 1 cup per day.) during the past year weight has: remained stable Dental Care, Regularly: Yes Physical Activity Frequency: Does not Exercise Seatbelt Use: always Sunscreen Use: No Assistive Devices: Denture - Upper, Denture - Lower, Hearing Aid - Left, Hearing Aid - Right and Walker Review of Systems Constitutional: no fever, no fatigue and no weakness Eyes: + worsening vision; no diplopia and no eye pain Ear, Nose, Mouth, Throat: + hearing loss and + dizziness; no ear pain, no tinnitus, no snoring, no hoarseness and no dysphagia Respiratory: no cough and no dyspnea Cardiovascular: no chest pain, no palpitations and no lightheadedness Gastrointestinal: + nausea; no abdominal pain and no vomiting Genitourinary: no dysuria, no urinary frequency and no urinary incontinence Musculoskeletal: + back pain; no neck pain, no radicular pain, no joint pain and no myalgia Integumentary: no rash and no lesions Neurologic: + gait abnormality and + abnormal speech; no localized weakness, no generalized weakness, no tingling, no numbness, no tremor(s), no abnormal movements, no headache(s), no confusion and no memory loss Psychiatric: no depression, no irritability, no anxiety, no difficulty concentrating, no confusion and no hallucinations Endocrine: no fatigue and no flushing Hematologic / Lymphatic: no easy bleeding and no easy bruising Allergy / Immunological: no urticaria and no problem reported Exam (Neuro) Physical Exam: The patient is right-handed. The patient is awake, alert, and attentive. Speech is remarkable for dysarthria. she has no obvious aphasia. She can name objects, repeat phrases, and has normal spontaneous speech. Mentation and thought processes are intact, with orientation to person, place and time, and normal fund of knowledge. Attention and concentration are normal. Mood and affect are normal and appropriate. General appearance and grooming are normal. Short and long-term memory are intact. Pupils are 2 mm bilaterally and reactive to light. Extraocular eye muscles are intact without nystagmus. Visual acuity and visual champion seem normal grossly to confrontation. There are no deficits to sensation in the face in all 3 distributions of the fifth cranial nerve bilaterally. Corneal reflexes are positive bilaterally. Facial strength and symmetry was normal bilaterally. Hearing Is decreased bilaterally. Palate moves well without asymmetry. There is normal sternocleidomastoid and trapezius (shoulder shrug) strength bilaterally. Tongue is midline with good strength bilaterally. Neck has a full range of motion without discomfort. There are no cervical bruits bilaterally. There are no cranial or ocular bruits. Heart is without murmur. There is a regular rhythm and rate. Cervical, thoracic, and lumbar spine are nontender to palpation. Gait is not tested stance sitting up in bed is poor. With outstretched arms there is no drift. There are no resting, postural, or action tremors. There is no ataxia with finger to nose testing. There is good facility in the hands. No other abnormal involuntary movements are noted. Motor strength is 5/5 diffusely in the arms bilaterally including deltoids, biceps, triceps, brachioradialis, wrist flexors and extensors, land agent, and intrinsic hand muscles. Motor strength is 5/5 diffusely in the legs bilaterally including hip flexors, quadriceps, hamstrings, gastrocnemius, tibialis anterior, tibialis posterior, and Peroneii muscles. Toe extensors are normal and there is good bulk in the extensor digitorum brevis muscles bilaterally. The limbs have good tone without rigidity or spasticity. There is no atrophy noted in the muscles. Muscle bulk is normal, there is no tenderness to palpation, no myotonia to percussion, and no fasciculations seen. Sensory examination is intact to touch and pin throughout all 4 limbs diffusely. Reflexes are 1/4 in the biceps, triceps, brachioradialis, quadriceps, and Achilles tendons bilaterally. There is no clonus bilaterally. Toes are downgoing with plantar stimulation bilaterally. Peripheral pulses are present and of normal quality distally in all 4 limbs. There is no peripheral edema noted in the limbs. Results & Data ([facility]) Vital Signs (Past 12 Hours) Vital Signs Temp Pulse Pulse Resp BP BP Pulse Ox 11/14/20 08:15 36.6 C 100 H 18 169/78 H 91 11/14/20 06:20 36.5 C 98 H 18 179/84 H 92 11/14/20 03:16 36.8 C 97 H 18 172/85 H 95 11/14/20 02:30 101 H 22 94 11/14/20 02:00 98 H 24 159/98 H 94 11/14/20 01:30 99 H 19 171/90 H 94 11/14/20 01:00 99 H 21 175/94 H 94 11/14/20 00:30 99 H 22 191/96 H 94 11/14/20 00:00 96 H 22 183/88 H 94 11/13/20 23:55 96 H 20 180/87 H 92 11/13/20 23:06 94 H 24 94 11/13/20 23:00 93 H 22 186/90 H 94 11/13/20 22:08 36.7 C 97 H 18 184/93 H 94 PG Care Time/CCT Total # of Minutes Spent Total Time Spent with Patient: Total time spent is greater than 50% in coordination of care (as documented) at patient's floor/unit and/or counseling patient: Coding Level of Care Code 29771 Initial Inpt Care Lvl 3 Diagnoses Acute CVA (cerebrovascular accident) I63.9 Slurred speech R47.81 Dizziness R42 Sensorineural hearing loss (SNHL) of both ears H90.3 Mild cognitive impairment G31.84 Chronic lower back pain M54.5; G89.29 Hypertension I10 Hypertension type: essential hypertension Time Spent (min) 60 (1) Hypertension Hypertension type: essential hypertension Qualified Code(s): I10 - Essential (primary) hypertension
[2020-11-14] MEDS: DONEPEZIL HCL 10 MG TAB PO SCH (08:50)
[2020-11-14] MEDS: PANTOprazole 40 MG TAB PO SCH (08:50)
[2020-11-14] MEDS: CLOPIDOGREL BISULFATE 75 MG TAB PO SCH (08:50)
[2020-11-14] MEDS: METOPROLOL SUCC 25MG EXT REL TAB PO SCH (08:50)
[2020-11-14] MEDS: GABAPENTIN 300 MG CAP PO SCH (08:50)
[2020-11-14] MEDS: MIRABEGRON ER 25 MG TAB PO SCH (08:50)
[2020-11-14] MEDS: FAMOTIDINE 20 MG TAB PO SCH ×2 (08:50→20:46)
[2020-11-14] MEDS: allopurinoL 100 MG TAB PO SCH (08:50)
[2020-11-14] MEDS: FLUoxetine HCL 10 MG CAP PO SCH (08:50)
[2020-11-14] MEDS: LOSARTAN/HCTZ 50/12.5MG TAB PO SCH (08:50)
[2020-11-14] MEDS: BRINZOLAMIDE (AZOPT) OPS 10 ML BTL OPR SCH ×2 (08:51→20:46)
[2020-11-14] MEDS: INSULIN ASPART 100 UNITS/ML 3 ML PEN SC SCH ×4 (08:52→20:47)
[2020-11-14] MEDS: INSULIN GLARGINE SOLOSTAR 100 UNITS/ML 3 ML PEN SC SCH (08:52)
--- NOTE | 2020-11-14 09:23 | XCELERA ---
[id number]
[2020-11-14] MEDS: ARTIFICIAL TEARS OP SCH (09:34)
--- NOTE | 2020-11-14 18:18 | History & Physical Bridge Note ---
Date of Service November 14, 2020 History & Physical Bridge Note I have examined the patient, reviewed the History & Physical and in the interval since the performance of the History & Physical I have noted the following changes of clinical significance: Patient is doing well since admission. CT angiogram head and neck are negative, echocardiogram is negative, no events on telemetry. The patient feels well and is up with physical and Occupational Therapy who recommended home with 24/ care and home health I discussed the case with neurology Plan to change to Plavix, and will keep home dose of simvastatin which is 20 mg daily as her lipids are already well controlled. Patient's blood pressures have been acceptable Will monitor overnight and discharged home tomorrow Called the patient's daughter to discuss her care and left a voicemail
[2020-11-14] MEDS ORDERED: INSULIN GLARGINE SOLOSTAR 100 UNITS/ML 3 ML PEN SC SCH (21:00)
[2020-11-14] MEDS ORDERED: TRAVOPROST Z 0.004% OPH SOLN 2.5 ML BTL OPB SCH (21:00)
[2020-11-14] MEDS ORDERED: LATANOPROST 0.005% OP SOLN 2.5 ML BTL OP SCH (21:00)
[2020-11-14] MEDS ORDERED: SIMVASTATIN 20 MG TAB PO SCH (21:00)
[2020-11-14] MEDS ORDERED: SIMVASTATIN 40 MG TAB PO SCH (21:00)
[2020-11-15 05:50] LABS: Basophils # (auto) 0.06 K/uL (0-0.2); Basophils % (auto) 1.3 %; Eosinophils # (auto) 0.21 K/uL (0-0.5); Eosinophils % (auto) 4.5 %; Hematocrit (blood only) 34.1 % (37-47); Hemoglobin 11.3 g/dL (12.0-16.0); Immature Granulocytes # (auto) 0.01 K/uL (0.00-0.02); Immature Granulocytes % (auto) 0.2 %; Lymphocytes # (auto) 1.03 K/uL (1.2-3.4); Lymphocytes % (auto) 21.9 %; Mean Corpuscular Hemoglobin 35.6 pg (25-34); Mean Corpuscular Hgb Conc 33.1 g/dL (32-36); Mean Corpuscular Volume 107.6 fL (80-100); Mean Platelet Volume 9.2 fL (7.4-10.4); Monocytes # (auto) 0.62 K/uL (0.11-0.59); Monocytes % (auto) 13.2 %; Neutrophils # (auto) 2.77 K/uL (1.4-6.5); Neutrophils % (auto) 58.9 %; Platelet Count 111 K/uL (130-400); RDW Coefficient of Variation 14.6 % (11.5-14.5); RDW Standard Deviation 57.4 fL (36.4-46.3); Red Blood Count 3.17 M/uL (4.2-5.4)
[2020-11-15] MEDS: LEVOTHYROXINE SODIUM 75 MCG TABLET PO SCH (06:09)
[2020-11-15 06:27] LABS: BUN Creatinine Ratio 18.5 (10-20); Calcium 9.2 mg/dl (8.5-10.1); Creatinine Clr Calc Pharmacy 53.4 ml/min; Est GFR (African American) 79.9 ml/min; Est GFR (Non-African American) 68.9 ml/min; Potassium 4.1 mmol/L (3.5-5.1)
[2020-11-15 06:34] LABS: RBC Morphology Unremarkable
[2020-11-15] MEDS: DONEPEZIL HCL 10 MG TAB PO SCH (08:40)
[2020-11-15] MEDS: FLUoxetine HCL 10 MG CAP PO SCH (08:40)
[2020-11-15] MEDS: MIRABEGRON ER 25 MG TAB PO SCH (08:40)
[2020-11-15] MEDS: allopurinoL 100 MG TAB PO SCH (08:40)
[2020-11-15] MEDS: LOSARTAN/HCTZ 50/12.5MG TAB PO SCH (08:40)
[2020-11-15] MEDS: CLOPIDOGREL BISULFATE 75 MG TAB PO SCH (08:40)
[2020-11-15] MEDS: METOPROLOL SUCC 25MG EXT REL TAB PO SCH (08:40)
[2020-11-15] MEDS: GABAPENTIN 300 MG CAP PO SCH (08:41)
[2020-11-15] MEDS: PANTOprazole 40 MG TAB PO SCH (08:41)
[2020-11-15] MEDS: FAMOTIDINE 20 MG TAB PO SCH (08:41)
[2020-11-15] MEDS: BRINZOLAMIDE (AZOPT) OPS 10 ML BTL OPR SCH (08:42)
[2020-11-15] MEDS: INSULIN GLARGINE SOLOSTAR 100 UNITS/ML 3 ML PEN SC SCH (08:43)
[2020-11-15] MEDS: INSULIN ASPART 100 UNITS/ML 3 ML PEN SC SCH ×2 (08:45→13:08)
[2020-11-15] MEDS ORDERED: ONDANSETRON INJ 2 MG/ML 2 ML VIAL IV PRN (11:29)
[2020-11-15] MEDS ORDERED: valACYclovir HCL 500 MG TABLET PO SCH (11:30)
[2020-11-15] MEDS: ARTIFICIAL TEARS OP SCH (11:48)
--- NOTE | 2020-11-15 11:55 | Discharge Summary ---
Date of Service November 15, 2020 Admission HPI Per Admitting Provider Amira De Jesus is an 89yo female presenting with 2-3 months of intermittent neurological symptoms. Patient states that over the last 2-3 months she has had difficulty with balance, word-finding issues, slurred speech as well as occasional facial droop and drooling from her right side. She has also had several occasions of sharp pain in her head. Patient has been following with her PCP for these above complaints. She had an MRI performed yesterday which demonstrated an acute punctate infarct of the right parietal lobe. She was referred to [facility] for continued workup. In the ER patient hypertensive at 184/93, otherwise stable. Patient complains of SOB/BROWN at baseline, otherwise no complaints. Principal Diagnosis Acute CVA, Dizziness, SLurred speech Discharge Exam Constitutional WD/WN, vitals as above Eyes PERRL, conjunctivae normal, anicteric sclerae + conjunctival abnormality (mild erythema OD) ENMT external ear and nose normal, oropharynx normal Neck trachea midline, no thyromegaly Respiratory normal respiratory effort, lungs clear to auscultation Cardiovascular RRR, no murmur, no edema Chest (Breasts) Chest: normal inspection of chest Gastrointestinal (Abdomen) normal bowel sounds, soft, nontender, no hepatosplenomegaly Musculoskeletal Extremities: extremities normal to inspection; no cyanosis and no clubbing Skin no rashes, warm and dry Neurologic moves all extremities and awake; no focal motor deficits Psychiatric A+Ox3, euthymic affect Lymphatic no lymphedema Discharge Data Allergies Allergy/AdvReac Type Severity Reaction Status Date / Time lisinopril AdvReac Intermediate COUGH Verified 11/13/20 23:31 Sulfa (Sulfonamide AdvReac Intermediate VOMITING Verified 11/13/20 23:31 Antibiotics) Consultations 11/14/20 00:21 ED Decision to Admit Stat 11/14/20 03:35 Consult Neurology Routine Ordered Studies 11/13/20 22:34 CT angio head w con Urgent CT angio neck with con Urgent CT head/brain wo con Urgent Chest X-Ray 11/13/20 22:34 SINGLE VIEW CHEST CLINICAL HISTORY: Strokelike symptoms. FINDINGS: An AP, portable, upright chest radiograph is compared to study dated 09/11/2020. The heart is enlarged noting atherosclerotic calcification and uncoiling of the thoracic aorta. The pulmonary vasculature is noncongested. Chronic interstitial thickening is similar to previous. There is bibasilar scarring/atelectasis. No airspace consolidation or large pleural effusion is identified. No pneumothorax is seen. The skeletal structures are osteopenic. The bony thorax is grossly intact. Degenerative change is noted in the shoulders and thoracic spine. IMPRESSION: Cardiomegaly with no acute cardiopulmonary abnormality. ACT 112: Negative or not required by law. Electronically signed by: Yfn De Santiago M.D. 11/14/2020 7:[address] 11/13/20 22:34 CT SCAN OF THE BRAIN WITHOUT IV CONTRAST CLINICAL HISTORY: Strokelike symptoms. COMPARISON STUDY: CT of the brain dated 07/07/2020. TECHNIQUE: Unenhanced axial CT scan of the brain is performed from the vertex to the skull base. A dose lowering technique was utilized adhering to the principles of ALARA. FINDINGS: Brain parenchyma: There are age-related involutional changes noting moderate subcortical and periventricular microangiopathic change. There is no hemorrhage, mass effect, or evidence of acute territorial ischemia by CT criteria. Brown- white matter differentiation is preserved. No extra-axial fluid collection is seen. Ventricles, sulci, cisterns: Prominent secondary to involutional change. Intracranial vasculature: There is atherosclerotic calcification of the cavernous carotid arteries. Calvarium: Unremarkable. Sinuses and mastoids: A 1.9 cm retention cyst is noted in the right maxillary antrum. The remaining visualized paranasal sinuses are clear. The mastoid air cells are well pneumatized. Orbits: The bony orbits are grossly intact. There is a right ocular lens implant. IMPRESSION: There is no hemorrhage, mass effect, or evidence of acute territorial ischemia by CT criteria. ACT 112: Negative or not required by law. Electronically signed by: Yfn De Santiago M.D. 11/14/2020 7:16 AM Head CTA 11/13/20 22:34 HEAD CTA HISTORY: Stroke Like Symptoms TECHNIQUE: Multiaxial CT images of the head were performed both before and after the intravenous administration of contrast to evaluate the major cerebral vessels. Maximum intensity projection images were also obtained. A dose lowerin g technique was utilized adhering to the principles of ALARA. COMPARISON: Head CT 07/07/2020. FINDINGS: There is no mass, hematoma, midline shift, or acute infarct. Visualized intracranial internal carotid arteries, distal vertebral arteries, and basilar artery are widely patent. There is no significant stenosis, occlusion, or aneurysm seen within the bilateral ACAs, MCAs, or budget clerk. The major dural venous sinuses are patent. Mild calcified plaque within the bilateral carotid siphons. IMPRESSION: No significant stenosis, occlusion, or aneurysm within the [place]. ACT 112: Negative or not required by law. Electronically signed by: Eduard Huerta M.D. 11/14/2020 8:21 AM Neck CTA 11/13/20 22:34 CT ANGIOGRAPHY OF THE NECK WITH CONTRAST CLINICAL HISTORY: Stroke Like Symptoms COMPARISON STUDY: CTA of the neck July 07, 2020. Technique: CT angiography of the carotid and vertebral arteries was obtained using Optiray and 3D reconstruction on an independent workstation. NASCET criteria was utilized. Automated exposure control was utilized for the study. A dose lowering technique was utilized adhering to the principles of ALARA. Findings: Visualized portions of the lungs are unremarkable. There is no cervical spine fracture. There is no cervical lymphadenopathy. Moderate cardiomegaly is noted. The bilateral common carotid, cervical internal carotid and vertebral arteries are patent. There is no stenosis or dissection within these vessels. Mild atherosclerotic plaque is present. No intraluminal thrombus is present. There is no aneurysm within the neck. IMPRESSION: No stenosis or dissection within the bilateral common carotid, cervical internal carotid or vertebral arteries. ACT 112: Negative or not required by law. Electronically signed by: Hamilton Gallagher M.D. 11/14/2020 8:04 AM Hospital Course (1) Acute CVA (cerebrovascular accident): Had incidental finding of small right parietal acute ischemic CVA on brain MRI obtained for slurred speech and dizziness. Stroke does not account for ongoing symptoms CTA head/neck neg for stenosis or LVO ECHO normal, no interatrial shunt Tele with NSR - A1C and Lipid panel good-continue same statin dose as per Neuro-no need for high intensity statin -Changed ASA to Plavix 75mg daily -PT/OT evaluation states ok to go home with home health and 24/7 care -Neurology consultation per protocol appreciated-no further changes dizziness and slurred speech are not from this CVA (2) Dizziness: could be side effect of medications-she is on Valtrex as well as gabapentin and tapering off continue with PT and titrate off gabapentin B12, folate normal (3) Slurred speech: same as above, may be medication side effect also had loose fitting dentures not related to small stroke seen on MRI (4) Type 2 diabetes mellitus: Mildly elevated blood sugar on admission A1C controlled at 5.9% -continue Metformin -continue Lantus 20u qAM and 45u qHS -Continue Gabapentin - patient had been on Neurontin 300mg TID. She has been weaning this outpatient and is currently on 300mg daily -Continue Gabapentin 300mg daily and titrate off as above (5) Mild cognitive impairment: Chronic. Patient is oriented x 4. Able to answer questions appropriately and follow commands. 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 continue prednisolone eye drops Dispo-stable for dc to home Total Time Total Time Spent Total Time Spent (In Minutes): 35 min Total Time Includes: Examination of the Patient, Discharge Planning and Medication Reconciliation Discharge Plan Discharge Items Patient Disposition: Home - Home Health Services Reason For Visit: CVA Discharge Diagnosis: Acute CVA Condition on Discharge: Fair Activity: Resume your previous activity Non-emergency contact: Primary Care Provider Call non-emergency contact if: you have any medication questions and your symptoms worsen Follow-up/Referrals: Vivian Humphrey DO [Primary Care Provider] - 11/25/20 9:20 am () Diet: Carb Consistent or DM2 and Heart Healthy Addtl Attending Provider Instructions: You were admitted for having a small stroke. This is not the cause of your recent symptoms you're having as it is very tiny and not in the right location to explain your recent symptoms. Your symptoms may be coming from medication side effect. Please continue weaning down off your gabapentin as you are doing. Your aspirin was changed to Plavix to help prevent stroke, but the rest of your workup for stroke causes was all negative. This is likely due to a stroke from small blood vessel disease from hypertension and diabetes. You should HOLD off on taking your metformin until 11/16/20 because of the contrast dye you received through the IV. Because of your chronic nausea, it would be best to STOP your iron pill and vitamin C and just keep an eye on your iron levels. If they become low again, you can get IV iron. Risk Factors for Stroke: You can reduce your chances of stroke by working with your medical provider to adopt a healthy lifestyle. Some specific ways to lower your chance of stroke are: * If you are a smoker, now is the time to stop smoking cigarettes * If you are diabetic, improve the control of your blood sugars * Avoid excessive amounts of alcohol * Control high blood pressure * Lose weight if you are overweight * Be sure to lead an active lifestyle * Eat a healthy diet low in salt, cholesterol and fat You should know about other risk factors for stroke that you are unable to control. These include: * Age 55 years or older * Male gender * Certain racial groups: , or / * Family History of Stroke, Mini stroke or Heart Attack * Sickle Cell Disease Follow Up: It is important for you to keep your follow up appointments with your medical provider. Who to Call and When: Medical Emergencies: Call 911 immediately if you experience any of the following warning signs and symptoms of Stroke: * Sudden numbness or weakness of the face, arm or leg, especially on one side of the body * Sudden confusion, trouble speaking or understanding * Sudden trouble seeing in one or both eyes * Sudden trouble walking, dizziness, loss of balance or coordination * Sudden severe headache with no cause Do not delay calling 911 if you experience any warning signs or symptoms of a stroke. Delay in seeking medical attention may affect what treatments can be given to you. . Pending Studies at Discharge: No Stand-Alone Forms: My [facility] Medications and DC Order Prescriptions: New valacyclovir 500 mg Tablet 1,000 mg PO BID Qty: 10 RF: 0 clopidogrel 75 mg Tablet 75 mg PO QAM Qty: 30 RF: 0 brinzolamide [Azopt] 1 % Drops,Suspension 2 drp OPR BID Qty: 10 RF: 0 prednisolone acetate 1 % Drops,Suspension 1 drp ophthalmic (eye) QID Qty: 5 RF: 0 Continued (DME) blood-glucose meter [Bloomspot Ultra2 Meter] Kit See Rx Instructions .ROUTE .MEDSUPPLY Qty: 1 RF: 0 donepezil 10 mg tablet 10 mg PO DAILY Qty: 90 RF: 1 levothyroxine [Synthroid] 75 mcg tablet 75 mcg PO DAILY Qty: 90 RF: 1 Myrbetriq 50 mg tablet extended release 24 hr 50 mg PO DAILY Qty: 90 RF: 1 Lantus Solostar U-100 Insulin 100 unit/mL (3 mL) insulin pen See Rx Instructions .ROUTE .COMPLEX Qty: 90 RF: 5 allopurinol 100 mg tablet 100 mg PO DAILY Qty: 90 RF: 1 metoprolol succinate 25 mg tablet extended release 24 hr 25 mg PO DAILY Qty: 90 RF: 3 (DME) lancets [SmashChartuch Delica Lancets] 30 gauge misc See Rx Instructions .ROUTE .MEDSUPPLY Qty: 200 RF: 3 (DME) pen needle, diabetic [UltiCare Pen Needle] 32 gauge x 1/4" needle See Dose Instructions .ROUTE .MEDSUPPLY Qty: 200 RF: 3 fluoxetine 10 mg capsule 10 mg PO DAILY Qty: 90 RF: 1 trospium 20 mg tablet 20 mg PO BID Qty: 180 RF: 1 losartan-hydrochlorothiazide 50-12.5 mg tablet 1 tab PO DAILY Qty: 90 RF: 1 metformin 500 mg tablet 500 mg PO BID Qty: 180 RF: 1 Prilosec OTC 20 mg tablet,delayed release (DR/EC) 20 mg PO DAILY Qty: 90 RF: 1 potassium citrate 10 mEq (1,080 mg) tablet extended release 10 meq PO BID Qty: 180 RF: 3 (DME) MyRepublicTouch Ultra Blue Test Strip Strip See Dose Instructions .ROUTE .MEDSUPPLY Qty: 300 RF: 3 famotidine 20 mg tablet 20 mg PO BID Qty: 180 RF: 0 ondansetron 4 mg tablet,disintegrating 4 mg PO DAILY PRN (Reason: Nausea) Qty: 90 RF: 0 cholecalciferol (vitamin D3) [Vitamin D3] 2,000 unit tablet 2,000 unit PO DAILY Qty: 90 RF: 0 betamethasone dipropionate 0.05 % cream 1 appln TOP BID PRN (Reason: skin irritation/itchiness) Qty: 45 RF: 0 cyanocobalamin (vitamin B-12) [Vitamin B-12] 2,000 mcg Tablet Extended Release 2,000 mcg PO DAILY RF: 0 copper gluconate 2 mg Capsule 2 mg PO DAILY RF: 0 Changed simvastatin 20 mg tablet 20 mg PO HS Qty: 90 RF: 1 Discontinued gabapentin 300 mg capsule 300 mg PO TID Qty: 270 RF: 1 naproxen [Naprosyn] 500 mg tablet 250 mg PO DAILY PRN (Reason: pain (scale score 7-10)) Qty: 20 RF: 0 ascorbic acid (vitamin C) 500 mg tablet 500 mg PO DAILY RF: 0 aspirin 81 mg Tablet,Delayed Release (Dr/Ec) 81 mg PO DAILY RF: 0 ferrous sulfate 325 mg (65 mg iron) Tablet 325 mg PO DAILY RF: 0 Discharge Orders: Discharge Order (Routine); Ordered 11/15/20 Ordered By: Vivienne Vinson Admission Data Admit Date/Time: 11/14/20 01:37 Attending Provider: Vivienne Vinson Admit Provider: Mariajose Whitney Primary Care Provider: Vivian Humphrey Other Providers: Mariajose Whitney ; Montserrat Castro ; [facility] Other Interventions: Discharge Summary Assessment (RN) Last Done: 11/15/20 14:38 Coding Level of Care Code 67228 OBS Care - Discharge Diagnoses Acute CVA (cerebrovascular accident) I63.9 Dizziness R42 Slurred speech R47.81 Type 2 diabetes mellitus E11.42; Z79.4 Diabetes mellitus complication detail: with polyneuropathy Diabetes mellitus complication status: with neurologic complications Diabetes mellitus long term acute care registered nurse insulin use: with mcfp use Mild cognitive impairment G31.84 Low serum copper for age R79.0 Hypothyroidism E03.9 Hypothyroidism type: unspecified Hypertension I10 Hypertension type: essential hypertension Dyslipidemia E78.5 Depression F32.9 Active/Remission status: remission status unspecified Depression Type: major depressive disorder Major depression recurrence: unspecified whether recurrent Chronic reflux esophagitis K21.0 Nausea R11.0 Vitamin B12 deficiency E53.8 Anemia, iron deficiency D50.9 Zoster ocular disease B02.30
[2020-11-15] MEDS: prednisoLONE acetate 1% OP SUSP 5 ML BTL OP SCH ×2 (13:05→14:00)
== END 2020-11-15 17:15 | disposition home health service (06) ==
LOC: ED 22:07 → 2S 22:07 → SUATTDRO 11-14 01:37 → 2S 11-14 02:38 → 2N 11-14 15:43
DX: Z79.82 Long term (current) use of aspirin; Z79.899 Other long term (current) drug therapy; B02.30 Zoster ocular disease, unspecified; Z88.8 Allergy status to other drugs, medicaments and biological substances; G31.84 Mild cognitive impairment of uncertain or unknown etiology; K20.90 Esophagitis, unspecified without bleeding; E03.9 Hypothyroidism, unspecified; D50.9 Iron deficiency anemia, unspecified; E11.9 Type 2 diabetes mellitus without complications; R11.0 Nausea; E53.8 Deficiency of other specified B group vitamins; E78.5 Hyperlipidemia, unspecified; I10 Essential (primary) hypertension; R47.81 Slurred speech; I63.89 Other cerebral infarction; Z79.84 Long term (current) use of oral hypoglycemic drugs; F32.9 Major depressive disorder, single episode, unspecified; Z88.2 Allergy status to sulfonamides; Z79.4 Long term (current) use of insulin; E61.0 Copper deficiency

== ENCOUNTER 2021-08-23 12:16 | Inpatient (IN) ==
[2021-08-23] MEDS ORDERED: SODIUM CHLORIDE 0.9% 500 ML IV ONE (12:38)
--- NOTE | 2021-08-23 12:44 | Emergency Department Note ---
Impression & Plan COVID-19, Generalized weakness, Acute dehydration ED Provider Note Name: ANAM GILES Age: 89 Sex: F Arrives Via: Ambulance Informant: Patient, daughter, EMS ED Provider: Sancho Hendrix MD Chief Complaint: Weakness Impression: As per impressions above Medical Decision Makin-year-old female with extensive past medical history arrives for evaluation of worsening weakness, dehydration and fatigue associated with some wheezing and shortness of breath. EMS brought her in and noted hypoxia into the 80s at home. She this morning had a positive Covid test after several days of illness. Patient is fully vaccinated for Covid however she is quite weak appearing and generally does not appear well. Fortunately work-up is relatively benign other than her chest x-ray is quite concerning for worsening bilateral infiltrates/edema. While oxygenation is okay on room air she is somewhat dyspneic and I feel that discharge would be unsafe at this time. I do not feel this is consistent with PE or dissection and there is no clear indication that this is ACS at this time. I discussed hospitalization with patient and daughter and both are on board with this plan. Hospitalist consulted for further management Prior Medical Record and Triage/Nursing Notes reviewed by Me Additional history obtained from chart, daughter, EMS Differentials:Reactive airway disease, pneumonia, pneumothorax, COPD, CHF, infections, cardiac ischemia, pulmonary embolism, musculoskeletal, gastrointestinal, as well as other pathologies. Vital Signs: reviewed and remarkable for no significant abnormalities Interventions: nss bolus Labs:Reviewed and remarkable for + covid Imaging:X ray results are stated below per my interpretation: Chest: 1 view: bilateral infiltrates vs pulmonary edema EKG:Per My Interpretation: Indication weakness: NSR 78 bpm, qtc 494 with RBBB. No Ectopy. No Ischemia. Compared to EKG 11/13/20, no significant changes. Consults:Hospitalist Plan: Disposition:Hospitalization. Condition: Good History of Present Illness: 89-year-old female arrives for evaluation of weakness. Patient notes that she developed a sore throat several days ago which progressed to worsening weakness for the last 24 hours. She notes weakness, nausea, lack of appetite, fatigue, chills, cough, runny nose amongst other symptoms. She does note a mildly productive cough at times. Symptoms are worsening today to the point where she can even get out of bed. She had minimal appetite thus did not eat much in the way of breakfast. She did take some Tylenol with improvement of her body aches. She did go home Covid test which was positive. Due to worsening weakness EMS was called. EMS notes O2 sat 89% on room air on arrival which improved with nasal cannula O2. Patient does note that she took some Zofran prior to arrival which did help as well. She denies any falls, trauma, injuries. She does note that symptoms are worse with exertion and slightly better with just sitting still. Patient denies any chest pain, syncope, significant shortness of breath at this has had no actual measured fevers. Patient notes she had multiple contacts about 1 week ago during a for her who had after 70 years of marriage. No recent antibiotics. ROS: See above HPI for pertinent positives & negatives. A total of 10 systems re viewed and were otherwise negative. Past Medical History:See Below Past Surgical History:See Below Family History:See Below Social History:See Below Home Medications:See Below Allergies:lisinopril, sufa Vitals:Blood Pressure: 145/61, Pulse 78, RR 16, T 37.4C, O2 95% on RA Physical Exam: GENERAL: Patient is tired appearing and in mild distress. EYES: No scleral icterus, unremarkable pupils. ENT: Mucous membranes moist, no nasal congestion. NECK: No masses appreciated, nomeningismus, trachea is midline. RESPIRATORY: Moderate tachypnea/dyspnea with diffuse crackles. CARDIOVASCULAR: Regular rate and rhythm.No murmurs, rubs, gallops appreciated. GASTROINTESTINAL: Abdomen soft, non-tender, no peritonitis.Bowel sounds positive.No masses appreciated. BACK: No midline tenderness, no CVA tenderness EXTREMITIES: Normal motion all extremities, no cyanosis, no edema. NEUROLOGIC: Alert and oriented, no acute motor or sensory deficits, no focal weakness, cranial nerves grossly intact. SKIN: No rash, no jaundice, no diaphoresis. 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 Cerebral atherosclerosis Choledocholithiasis Chronic lower back pain Chronic reflux esophagitis Compression fracture of thoracic vertebra Depression Diarrhea Dyslipidemia Fibromyalgia Glaucoma Hemorrhoids, internal Hepatic steatosis History of CVA (cerebrovascular accident) (11/2020) History of gastric ulcer History of gastritis Erosive History of TIA (transient ischemic attack) Hypercalcemia Hypertension Hypothyroidism IBS (irritable bowel syndrome) Leukopenia Low serum copper for age Lumbar disc disease Lumbar stenosis with neurogenic claudication Mild cognitive impairment Night sweats Obstructive sleep apnea Osteoarthritis Osteopenia Pancytopenia Postherpetic neuralgia Renal cyst Sensorineural hearing loss (SNHL) of both ears Thrombocytopenia Type 2 diabetes mellitus Urinary calculus Urinary incontinence Ventral hernia Vitamin B12 deficiency Vitamin D deficiency Zoster ocular disease Surgical History History of cataract surgery right eye History of cholecystectomy History of colonoscopy History of knee replacement History of tonsillectomy S/P panniculectomy (02/20/19) 02/20/19 at [facility]- Lower abdominal panniculectomy with Dr. Mancia Status post laminectomy Family History Father , 81 from cancer Cardiac disorder Hypertension Kidney stones Prostate cancer Hearing loss Family/Other Cardiac disorder Hypertension Kidney stones Mother , age 98 with a senile dementia of the Alzheimer's type Dementia Hypertension Brother Dementia Lung cancer Myocardial infarction Aunt Breast cancer Other No family history of adverse response to anesthesia No family history of bleeding disorder Denies family history of Ovarian cancer Crohn's disease Colorectal cancer Social History Smoking Status: Never smoker Second Hand Exposure: No; Hx Alcohol Use: No Hx Substance Use: No Preferred Language: Belgian Communication Ability: Effective Visual Impairment: Limited Hearing Ability: Use of Hearing Aid 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: No Beliefs That Will Affect Care: None marital status: / Current Living Situation: Family Current Living Situation Comment: Lives w/ great granddaughter current occupational status: retired How many Children do You have: 2 Feels Safe at Home: Yes Childhood Exposure to Second-Hand Smoke: No caffeine: Yes (Tea 1 cup per day.) during the past year weight has: remained stable Dental Care, Regularly: Yes Physical Activity Frequency: Does not Exercise Seatbelt Use: always Sunscreen Use: No Assistive Devices: CPAP and Wheelchair Allergies Allergies Allergy/AdvReac Type Severity Reaction Status Date / Time lisinopril AdvReac Intermediate COUGH Verified 08/23/21 14:54 Sulfa (Sulfonamide AdvReac Intermediate VOMITING Verified 08/23/21 14:54 Antibiotics) Home Meds Home Medications Medication Instructions Recorded Confirmed copper gluconate 2 mg capsule 2 mg PO HS 09/05/18 08/23/21 cyanocobalamin (vitamin B-12) 2,000 mcg PO QAM 09/05/18 08/23/21 2,000 mcg tablet,extended release (Vitamin B-12 ER) allopurinol 100 mg tablet 100 mg PO HS 08/23/21 08/23/21 cholecalciferol (vitamin D3) 50 2,000 unit PO HS 08/23/21 08/23/21 mcg (2,000 unit) tablet (Vitamin D3) donepezil 10 mg tablet 10 mg PO HS 08/23/21 08/23/21 fluoxetine 10 mg capsule 10 mg PO QAM 08/23/21 08/23/21 latanoprost 0.005 % eye drops 1 drp OPL HS 08/23/21 08/23/21 levothyroxine 75 mcg tablet 75 mcg PO DAILYBB 08/23/21 08/23/21 (Synthroid) metformin 500 mg tablet 500 mg PO QAM PRN 08/23/21 08/23/21 metoprolol succinate 25 mg 25 mg PO HS 08/23/21 08/23/21 tablet,extended release 24 hr mirabegron 50 mg tablet,extended 50 mg PO QAM 08/23/21 08/23/21 release 24 hr (Myrbetriq) omeprazole magnesium 20 mg 20 mg PO HS 08/23/21 08/23/21 tablet,delayed release (Prilosec OTC) timolol maleate 0.5 % eye drops 1 drp OPB BID 08/23/21 08/23/21 Previous Rx's Medication Instructions Recorded blood-glucose meter (OneTouch #1 ea 06/10/20 Ultra2 Meter) potassium citrate 10 mEq (1,080 10 meq PO BID #180 tab 10/16/20 mg) tablet,extended release blood sugar diagnostic (OneTouch #300 ea 10/20/20 Ultra Blue Test Strip) brinzolamide 1 % eye 2 drp OPR BID #10 ml 11/15/20 drops,suspension (Azopt) trospium 20 mg tablet 20 mg PO BID #180 tab 01/02/21 simvastatin 20 mg tablet 20 mg PO HS #90 tab 06/04/21 lancets 30 gauge (OneTouch Delica #200 ea 06/23/21 Lancets) famotidine 20 mg tablet 20 mg PO BID #180 tab 07/07/21 clopidogrel 75 mg tablet 75 mg PO QAM #90 tab 07/13/21 pen needle, diabetic 32 gauge x #200 ea 07/15/21 1" (UltiCare Pen Needle) insulin glargine 100 unit/mL (3 See Rx Instructions .ROUTE 08/05/21 mL) subcutaneous pen (Lantus .COMPLEX #90 ml Solostar U-100 Insulin) cefdinir 300 mg capsule 300 mg PO BID #10 cap 08/25/21 dexamethasone 6 mg tablet 6 mg PO DAILY #7 tab 08/25/21 lactobacillus combination no.4 3 3,000 mmu cells PO DAILY #7 cap 08/25/21 billion cell capsule (Probiotic) Results & Data (ED) Vital Signs Vital Signs - 24 hr 08/23/21 12:04 08/23/21 14:04 08/23/21 16:04 Temperature 37.4 C Temperature Source Oral Pulse Rate 78 Pulse Rate [Finger] 78 88 85 Respiratory Rate 16 16 16 Respiratory Effort / Characteristics Non-Labored Spontaneous Respiratory Depth Normal Blood Pressure 145/61 H Blood Pressure [Left Arm] 145/61 H 167/82 H 162/84 H Blood Pressure Mean 89 Blood Pressure Mean [Left Arm] 89 110 110 Pulse Oximetry 95 91 93 Oxygen Delivery Method Room Air Room Air Room Air Sepsis Recent Fever Within 48 Hours No Sepsis New/Unexplained Change in Mental Status No Sepsis Action Taken by Nursing No Action Required Laboratory Data Result diagrams: 08/25/21 11:07 08/25/21 11:07 Lab Results 08/23/21 08/23/21 08/23/21 Range/Units 12:34 12:34 12:34 WBC 2.37 L (4.8-10.8) K/uL RBC 3.50 L (4.2-5.4) M/uL Hgb 12.3 (12.0-16.0) g/dL Hct 36.3 L (37-47) % MCV 103.7 H (80-100) fL MCH 35.1 H (25-34) pg MCHC 33.9 (32-36) g/dL RDW Std Deviation 63.0 H (36.4-46.3) fL RDW Coeff of Gillian 16.5 H (11.5-14.5) % Plt Count 85 L (130-400) K/uL MPV 10.0 (7.4-10.4) fL Immature Gran % (Auto) 0.0 % Neut % (Auto) 52.7 % Lymph % (Auto) 28.7 % Lanier % (Auto) 16.5 % Eos % (Auto) 1.7 % Baso % (Auto) 0.4 % Neut # (Auto) 1.25 L (1.4-6.5) K/uL Lymph # (Auto) 0.68 L (1.2-3.4) K/uL Lanier # (Auto) 0.39 (0.11-0.59) K/uL Eos # (Auto) 0.04 (0-0.5) K/uL Baso # (Auto) 0.01 (0-0.2) K/uL Immature Gran # (Auto) 0.00 (0.00-0.02) K/uL Sodium 137 (136-145) mmol/L Potassium TNP Chloride 103 (98-107) mmol/L Carbon Dioxide 26 (21-32) mmol/L Anion Gap 8 (3-11) BUN 15 (6-23) mg/dl Creatinine 0.78 (0.6-1.2) mg/dl Est Cr Clr Drug Dosing 52.1 ml/min Est GFR ( Amer) 78.1 ml/min Est GFR (Non-Af Amer) 67.4 ml/min BUN/Creatinine Ratio 19.2 (10-20) Glucose 105 H (70-99(Fasting)) mg/dl Lactate (0.4-2.0) mmol/L Calcium 9.0 (8.5-10.1) mg/dl Total Bilirubin 0.7 (0.2-1.0) mg/dl Direct Bilirubin TNP AST TNP ALT 8 (7-52) U/L Alkaline Phosphatase 53 (34-104) U/L Troponin I < 0.03 (0-0.04) ng/ml C-Reactive Protein (0-0.5) mg/dl Total Protein 6.3 (6.0-8.3) gm/dl Albumin 3.6 (3.4-5.0) gm/dl Lipase 33 (11-82) U/L Procalcitonin < 0.05 (0-0.5) ng/ml Urine Color Urine Appearance (Clear) Urine pH (4.5-7.5) Ur Specific Rover (1.000-1.030) Urine Protein (Negative) Urine Glucose (UA) (Negative) Urine Ketones (Negative) Urine Blood (Negative) Urine Nitrite (Negative) Urine Bilirubin (Negative) Urine Urobilinogen (Negative) Ur Leukocyte Esterase (Negative) Urine WBC (Auto) (0-5) /hpf Urine RBC (Auto) (0-4) /hpf U Hyaline Cast (Auto) (0-5) /lpf U Epithel Cells (Auto) (0-5) /lpf Urine Bacteria (Auto) (Negative) Urine Yeast SARS-CoV-2, RNA, NAAT (NEGATIVE) 08/23/21 08/23/21 08/23/21 Range/Units 13:20 13:51 13:58 WBC (4.8-10.8) K/uL RBC (4.2-5.4) M/uL Hgb (12.0-16.0) g/dL Hct (37-47) % MCV (80-100) fL MCH (25-34) pg MCHC (32-36) g/dL RDW Std Deviation (36.4-46.3) fL RDW Coeff of Gillian (11.5-14.5) % Plt Count (130-400) K/uL MPV (7.4-10.4) fL Immature Gran % (Auto) % Neut % (Auto) % Lymph % (Auto) % Lanier % (Auto) % Eos % (Auto) % Baso % (Auto) % Neut # (Auto) (1.4-6.5) K/uL Lymph # (Auto) (1.2-3.4) K/uL Lanier # (Auto) (0.11-0.59) K/uL Eos # (Auto) (0-0.5) K/uL Baso # (Auto) (0-0.2) K/uL Immature Gran # (Auto) (0.00-0.02) K/uL Sodium (136-145) mmol/L Potassium Chloride (98-107) mmol/L Carbon Dioxide (21-32) mmol/L Anion Gap (3-11) BUN (6-23) mg/dl Creatinine (0.6-1.2) mg/dl Est Cr Clr Drug Dosing ml/min Est GFR ( Amer) ml/min Est GFR (Non-Af Amer) ml/min BUN/Creatinine Ratio (10-20) Glucose (70-99(Fasting)) mg/dl Lactate 1.8 (0.4-2.0) mmol/L Calcium (8.5-10.1) mg/dl Total Bilirubin (0.2-1.0) mg/dl Direct Bilirubin AST ALT (7-52) U/L Alkaline Phosphatase (34-104) U/L Troponin I (0-0.04) ng/ml C-Reactive Protein (0-0.5) mg/dl Total Protein (6.0-8.3) gm/dl Albumin (3.4-5.0) gm/dl Lipase (11-82) U/L Procalcitonin (0-0.5) ng/ml Urine Color Dark Yellow Urine Appearance Turbid A (Clear) Urine pH 6.5 (4.5-7.5) Ur Specific Rover 1.019 (1.000-1.030) Urine Protein 1+ H (Negative) Urine Glucose (UA) Negative (Negative) Urine Ketones Negative (Negative) Urine Blood Negative (Negative) Urine Nitrite Negative (Negative) Urine Bilirubin Negative (Negative) Urine Urobilinogen Negative (Negative) Ur Leukocyte Esterase Trace H (Negative) Urine WBC (Auto) 1-5 (0-5) /hpf Urine RBC (Auto) 0-4 (0-4) /hpf U Hyaline Cast (Auto) 1-5 (0-5) /lpf U Epithel Cells (Auto) >30 H (0-5) /lpf Urine Bacteria (Auto) 4+ H (Negative) Urine Yeast Not Reportable SARS-CoV-2, RNA, NAAT POSITIVE A* (NEGATIVE) 08/23/21 08/23/21 Range/Units 14:11 14:11 WBC (4.8-10.8) K/uL RBC (4.2-5.4) M/uL Hgb (12.0-16.0) g/dL Hct (37-47) % MCV (80-100) fL MCH (25-34) pg MCHC (32-36) g/dL RDW Std Deviation (36.4-46.3) fL RDW Coeff of Gillian (11.5-14.5) % Plt Count (130-400) K/uL MPV (7.4-10.4) fL Immature Gran % (Auto) % Neut % (Auto) % Lymph % (Auto) % Lanier % (Auto) % Eos % (Auto) % Baso % (Auto) % Neut # (Auto) (1.4-6.5) K/uL Lymph # (Auto) (1.2-3.4) K/uL Lanier # (Auto) (0.11-0.59) K/uL Eos # (Auto) (0-0.5) K/uL Baso # (Auto) (0-0.2) K/uL Immature Gran # (Auto) (0.00-0.02) K/uL Sodium (136-145) mmol/L Potassium 4.3 Chloride (98-107) mmol/L Carbon Dioxide (21-32) mmol/L Anion Gap (3-11) BUN (6-23) mg/dl Creatinine (0.6-1.2) mg/dl Est Cr Clr Drug Dosing ml/min Est GFR ( Amer) ml/min Est GFR (Non-Af Amer) ml/min BUN/Creatinine Ratio (10-20) Glucose (70-99(Fasting)) mg/dl Lactate (0.4-2.0) mmol/L Calcium (8.5-10.1) mg/dl Total Bilirubin (0.2-1.0) mg/dl Direct Bilirubin 0.2 AST 13 ALT (7-52) U/L Alkaline Phosphatase (34-104) U/L Troponin I (0-0.04) ng/ml C-Reactive Protein 1.36 H (0-0.5) mg/dl Total Protein (6.0-8.3) gm/dl Albumin (3.4-5.0) gm/dl Lipase (11-82) U/L Procalcitonin (0-0.5) ng/ml Urine Color Urine Appearance (Clear) Urine pH (4.5-7.5) Ur Specific Rover (1.000-1.030) Urine Protein (Negative) Urine Glucose (UA) (Negative) Urine Ketones (Negative) Urine Blood (Negative) Urine Nitrite (Negative) Urine Bilirubin (Negative) Urine Urobilinogen (Negative) Ur Leukocyte Esterase (Negative) Urine WBC (Auto) (0-5) /hpf Urine RBC (Auto) (0-4) /hpf U Hyaline Cast (Auto) (0-5) /lpf U Epithel Cells (Auto) (0-5) /lpf Urine Bacteria (Auto) (Negative) Urine Yeast SARS-CoV-2, RNA, NAAT (NEGATIVE) Administered Medications Discontinued Medications Acetaminophen (Acetaminophen 325 Mg Tab) 650 mg PO Q4H PRN PRN Reason: pain/fever Stop: 09/22/21 18:23 Last Admin: 08/25/21 16:30 Dose: 650 mg Documented by: [id number] Admin: 08/24/21 20:03 Dose: 650 mg Documented by: [id number] Admin: 08/23/21 23:53 Dose: 650 mg Documented by: [id number] Allopurinol (Allopurinol 100 Mg Tab) 100 mg PO HS [facility] Stop: 09/22/21 20:59 Last Admin: 08/24/21 20:05 Dose: 100 mg Documented by: [id number] Admin: 08/23/21 20:06 Dose: 100 mg Documented by: [id number] Brinzolamide (Brinzolamide (Azopt) Ops 10 Ml Btl) 2 drops OPR BID [facility] Stop: 09/22/21 20:59 Last Admin: 08/25/21 09:16 Dose: 2 drops Documented by: [id number] Admin: 08/24/21 20:04 Dose: 2 drops Documented by: [id number] Admin: 08/24/21 08:46 Dose: 2 drops Documented by: [id number] Admin: 08/23/21 20:06 Dose: 2 drops Documented by: [id number] Clopidogrel Bisulfate (Clopidogrel Bisulfate 75 Mg Tab) 75 mg PO QAM [facility] Stop: 09/23/21 08:59 Last Admin: 08/25/21 09:15 Dose: 75 mg Documented by: [id number] Admin: 08/24/21 08:45 Dose: 75 mg Documented by: [id number] Donepezil HCl (Donepezil Hcl 10 Mg Tab) 10 mg PO HS [facility] Stop: 09/22/21 20:59 Last Admin: 08/24/21 20:05 Dose: 10 mg Documented by: [id number] Admin: 08/23/21 20:06 Dose: 10 mg Documented by: [id number] Enoxaparin Sodium (Enoxaparin Inj 40 Mg/0.4 Ml Syr) 40 mg SQ Q12H [facility] Stop: 09/22/21 18:59 Last Admin: 08/25/21 09:16 Dose: 40 mg Documented by: [id number] Admin: 08/24/21 20:05 Dose: 40 mg Documented by: [id number] Admin: 08/24/21 08:46 Dose: 40 mg Documented by: [id number] Admin: 08/23/21 19:55 Dose: 40 mg Documented by: [id number] Famotidine (Famotidine 20 Mg Tab) 20 mg PO BID [facility] Stop: 09/22/21 20:59 Last Admin: 08/25/21 09:16 Dose: 20 mg Documented by: [id number] Admin: 08/24/21 20:06 Dose: 20 mg Documented by: [id number] Admin: 08/24/21 08:45 Dose: 20 mg Documented by: [id number] Admin: 08/23/21 20:06 Dose: 20 mg Documented by: [id number] Fluoxetine HCl (Fluoxetine Hcl 10 Mg Cap) 10 mg PO QAM [facility] Stop: 09/23/21 08:59 Last Admin: 08/25/21 09:15 Dose: 10 mg Documented by: [id number] Admin: 08/24/21 08:45 Dose: 10 mg Documented by: [id number] Furosemide (Furosemide 20 Mg Tab) 20 mg PO QAM [facility] Stop: 09/23/21 10:29 Last Admin: 08/25/21 09:15 Dose: 20 mg Documented by: [id number] Admin: 08/24/21 11:43 Dose: 20 mg Documented by: [id number] Sodium Chloride (Nss) 500 mls @ 999 mls/hr IV .Q31M ONE Stop: 08/23/21 13:08 Last Infusion: 08/23/21 15:09 Dose: 0 mls/hr Documented by: [id number] Admin: 08/23/21 13:53 Dose: 999 mls/hr Documented by: [id number] Ceftriaxone Sodium (Rocephin) 1,000 mg in 50 mls @ 100 mls/hr IV NOW STA Stop: 08/23/21 15:26 Last Infusion: 08/23/21 15:49 Dose: 0 mls/hr Documented by: [id number] Admin: 08/23/21 15:09 Dose: 100 mls/hr Documented by: [id number] Ceftriaxone Sodium 1,000 mg/ (Dextrose) 60 mls @ 120 mls/hr IV ONE ONE; Protocol Stop: 08/23/21 17:14 Last Admin: 08/23/21 19:09 Dose: Not Given Documented by: [id number] Ceftriaxone Sodium 2,000 mg/ (Dextrose) 70 mls @ 140 mls/hr IV Q24H [facility]; Protocol Stop: 08/26/21 15:59 Last Infusion: 08/25/21 17:00 Dose: 0 mls/hr Documented by: [id number] Admin: 08/25/21 16:30 Dose: 140 mls/hr Documented by: [id number] Infusion: 08/24/21 17:06 Dose: 0 mls/hr Documented by: [id number] Admin: 08/24/21 16:32 Dose: 140 mls/hr Documented by: [id number] Dexamethasone 6 mg/ Syringe 1.5 mls @ 1 mls/min IV DAILY [facility] Stop: 09/01/21 09:02 Last Admin: 08/25/21 09:14 Dose: 1 mls/min Documented by: [id number] Admin: 08/24/21 08:46 Dose: 1 mls/min Documented by: [id number] Admin: 08/23/21 19:55 Dose: 1 mls/min Documented by: [id number] Insulin Aspart (Insulin Aspart Per Unit) 0 units SC ACHS [facility] Stop: 09/22/21 18:44 Last Admin: 08/25/21 12:25 Dose: 5 units Documented by: [id number] Cosigned by: [id number] Admin: 08/25/21 09:05 Dose: 3 units Documented by: [id number] Cosigned by: [id number] Admin: 08/24/21 21:24 Dose: 4 units Documented by: [id number] Cosigned by: [id number] Admin: 08/24/21 17:32 Dose: 8 units Documented by: [id number] Cosigned by: [id number] Admin: 08/24/21 12:17 Dose: 4 units Documented by: [id number] Cosigned by: [id number] Admin: 08/24/21 08:53 Dose: 5 units Documented by: [id number] Cosigned by: [id number] Admin: 08/23/21 21:51 Dose: 1 units Documented by: [id number] Cosigned by: [id number] Admin: 08/23/21 19:44 Dose: 2 units Documented by: [id number] Cosigned by: [id number] Insulin Glargine (Insulin Glargine Solostar 100 Units/Ml 3 Ml Pen) 10 units SC BID [facility] Stop: 09/22/21 20:59 Last Admin: 08/25/21 09:06 Dose: 10 units Documented by: [id number] Cosigned by: [id number] Admin: 08/24/21 21:24 Dose: 10 units Documented by: [id number] Cosigned by: [id number] Admin: 08/24/21 08:52 Dose: 10 units Documented by: [id number] Cosigned by: [id number] Admin: 08/23/21 20:30 Dose: 10 units Documented by: [id number] Cosigned by: [id number] Latanoprost (Latanoprost 0.005% Op Soln 2.5 Ml Btl) 1 drops OPL [facility] Stop: 09/22/21 20:59 Last Admin: 08/24/21 20:06 Dose: 1 drops Documented by: [id number] Admin: 08/23/21 20:07 Dose: 1 drops Documented by: [id number] Levothyroxine Sodium (Levothyroxine Sodium 75 Mcg Tablet) 75 mcg PO DAILY [facility] Stop: 09/23/21 06:29 Last Admin: 08/25/21 05:53 Dose: 75 mcg Documented by: [id number] Admin: 08/24/21 05:38 Dose: 75 mcg Documented by: [id number] Metoprolol Succinate (Metoprolol Succ 25mg Ext Rel Tab) 25 mg PO HS [facility] Stop: 09/22/21 20:59 Last Admin: 08/24/21 20:07 Dose: 25 mg Documented by: [id number] Admin: 08/23/21 20:06 Dose: 25 mg Documented by: [id number] Pantoprazole Sodium (Pantoprazole 40 Mg Tab) 40 mg PO DAILY [facility] Stop: 09/23/21 08:59 Last Admin: 08/25/21 09:15 Dose: 40 mg Documented by: [id number] Admin: 08/24/21 08:44 Dose: 40 mg Documented by: [id number] Potassium Citrate (Potassium Citrate 10 Meq Tab) 10 meq PO BID [facility] Stop: 09/22/21 20:59 Last Admin: 08/25/21 09:15 Dose: 10 meq Documented by: [id number] Admin: 08/24/21 20:07 Dose: 10 meq Documented by: [id number] Admin: 08/24/21 08:44 Dose: 10 meq Documented by: [id number] Admin: 08/23/21 20:06 Dose: 10 meq Documented by: [id number] Simvastatin (Simvastatin 20 Mg Tab) 20 mg PO HS [facility] Stop: 09/22/21 20:59 Last Admin: 08/24/21 20:08 Dose: 20 mg Documented by: [id number] Admin: 08/23/21 20:06 Dose: 20 mg Documented by: [id number] Imaging Data Radiologist's Impression: Chest X-Ray 08/23/21 12:38 XR chest 1V portable HISTORY: 89 years-old Female covid sob acute shortness of breath. COVID Positive. COMPARISON: Chest radiograph 11/13/2020 TECHNIQUE: Portable AP view of the chest FINDINGS: Cardiac silhouette is enlarged. Pulmonary vascular congestion with interstitial coarsening. No pneumothorax. Trace pleural effusions. Degenerative changes of the shoulders and spine. IMPRESSION: Cardiomegaly with pulmonary vascular congestion and interstitial coarsening suggestive of pulmonary edema versus interstitial pneumonitis. ACT 112: Negative or not required by law. The above report was generated using voice recognition software. It may contain grammatical, syntax or spelling errors. Electronically signed by: Palmer Anaya M.D. 08/23/2021 12:55 PM Discharge Plan Visit Data Chief Complaint: Weakness ED Provider: Sancho Hendrix Discharge Problem: COVID-19, Generalized weakness, Acute dehydration Patient Disposition: Admitted As Inpatient Discharge Instructions Interventions: ED Discharge Assessment Last Done: 08/23/21 17:20
--- NOTE | 2021-08-23 12:56 | XRay Report ---
XR chest 1V portable HISTORY: 89 years-old Female covid sob acute shortness of breath. COVID Positive. COMPARISON: Chest radiograph 11/13/2020 TECHNIQUE: Portable AP view of the chest FINDINGS: Cardiac silhouette is enlarged. Pulmonary vascular congestion with interstitial coarsening. No pneumo thorax. Trace pleural effusions. Degenerative changes of the shoulders and spine. IMPRESSION: Cardiomegaly with pulmonary vascular congestion and interstitial coarsening suggestive of pulmonary edema versus interstitial pneumonitis. ACT 112: Negative or not required by law. The above report was generated using voice recognition software. It may contain grammatical, syntax o r spelling errors. Electronically signed by: Palmer Anaya M.D. 08/23/2021 12:55 PM
[2021-08-23 13:10] LABS: Hematocrit (blood only) 36.3 % (37-47); Hemoglobin 12.3 g/dL (12.0-16.0); Mean Corpuscular Hemoglobin 35.1 pg (25-34); Mean Corpuscular Hgb Conc 33.9 g/dL (32-36); Mean Corpuscular Volume 103.7 fL (80-100); Platelet Count 85 K/uL (130-400); RDW Coefficient of Variation 16.5 % (11.5-14.5); White Blood Count 2.37 K/uL (4.8-10.8)
[2021-08-23 13:13] LABS: Basophils # (auto) 0.01 K/uL (0-0.2); Basophils % (auto) 0.4 %; Eosinophils # (auto) 0.04 K/uL (0-0.5); Eosinophils % (auto) 1.7 %; Lymphocytes # (auto) 0.68 K/uL (1.2-3.4); Lymphocytes % (auto) 28.7 %; Monocytes # (auto) 0.39 K/uL (0.11-0.59); Monocytes % (auto) 16.5 %; Neutrophils # (auto) 1.25 K/uL (1.4-6.5); Neutrophils % (auto) 52.7 %
[2021-08-23 13:20] LABS: Troponin I < 0.03 ng/ml (0-0.04)
[2021-08-23 13:54] LABS: Alanine Aminotransferase 8 U/L (7-52); Albumin Level 3.6 gm/dl (3.4-5.0); Alkaline Phosphatase 53 U/L (34-104); Anion Gap 8 (3-11); BUN Creatinine Ratio 19.2 (10-20); Bilirubin,Total 0.7 mg/dl (0.2-1.0); Blood Urea Nitrogen 15 mg/dl (6-23); Carbon Dioxide 26 mmol/L (21-32); Chloride 103 mmol/L (98-107); Creatinine Clr Calc Pharmacy 52.1 ml/min; Est GFR (African American) 78.1 ml/min; Est GFR (Non-African American) 67.4 ml/min; Glucose 105 mg/dl (70-99(Fasting)); Lipase 33 U/L (11-82); Sodium 137 mmol/L (136-145); Total Protein 6.3 gm/dl (6.0-8.3)
[2021-08-23 14:19] LABS: Appearance Urine Turbid (Clear); Bacteria Urine Automated 4+ (Negative); Bilirubin Urine Negative (Negative); Blood Urine Negative (Negative); Color Urine Dark Yellow; Epithelial Cell Urine Auto >30 /lpf (0-5); Glucose Urine UA Negative (Negative); Ketones Urine Negative (Negative); Leukocyte Esterase Urine Trace (Negative); Nitrite Urine Negative (Negative); Protein Urine 1+ (Negative); RBC Urine Automated 0-4 /hpf (0-4); Specific Gravity Urine 1.019 (1.000-1.030); Urobilinogen Urine Negative (Negative); pH Urine 6.5 (4.5-7.5)
[2021-08-23 14:46] LABS: Bilirubin Direct 0.2 mg/dl (0-0.2); Potassium 4.3 mmol/L (3.5-5.1)
[2021-08-23] MEDS ORDERED: cefTRIAXone SODIUM 1,000 MG/50 ML BAG IV STA (14:57)
--- NOTE | 2021-08-23 15:32 | History & Physical Report ---
Date of Service August 23, 2021 Assessment & Plan (1) Acute and chronic respiratory failure with hypoxia: Plan: Acute hypoxic respiratory failure 2/2 Covid pneumonia BBC 2.37 Hemoglobin 12.3 PLT 85 Creatinine 0.78, at normal baseline CRP 1.36 Procalcitonin negative UA with epithelial cells, bacteria, patient with urinary symptoms for 2 weeks. Empiric treatment of UTI with UC pending Lactate normal Transaminases normal at admission CXR: Cardiomegaly with pulmonary vascular congestion, interstitial coarsening suggestive of pulmonary edema versus interstitial pneumonitis. Last TTE 11/14/2020 with EF 60-65%, grade 1 diastolic dysfunction BP 145/61 Lasix 20 mg oral daily to promote dry status Symptom onset 7-8 days ago Covid + 08/23/2021 No high flow requirements, does not meet criteria for baricitinib/tocilizumab at this time Desaturations to 80s with any ambulation, oxygen level was around 90s at rest. SPO2 goal oxygen greater than 90% -EKG: Normal sinus rhythm, QTC 494. Right bundle branch block. Deffered remdesivir on shared risk/benefit discussion (2) UTI (urinary tract infection): Plan: UTI Patient reports 2 weeks of urinary symptoms 4+ bacteria, trace leukocyte esterase with epithelial cells also present UC pending Continue Rocephin daily (3) Weakness: Plan: Weakness - W/ UTI and COVID as above - PT/OT pending - CM consulted (4) History of CVA (cerebrovascular accident): Plan: History of CVA/TIA Continue Plavix 75 mg daily Continue simvastatin 20 mg nightly (5) Hypertension: Plan: Hypertension Continue metoprolol 25 mg p.o. nightly (6) Hypothyroidism: Plan: Hypothyroidism Continue Synthroid 75 mcg daily (7) Type 2 diabetes mellitus: Plan: Type 2 diabetes mellitus - Goal BSG 133888 Glucose checks AC/at bedtime Basal/bolus Glargine 10 BID Correction factor 40 Carb ratio 15 History of Present Illness Primary Care Provider: DO Amira Shelby is an 89-year-old female with past medical history of chronic reflux esophagitis, depression, hyperlipidemia, fibromyalgia, hypertension, hypothyroidism, ANUP, type 2 diabetes mellitus, CVA/TIA who presents with hypoxia, weakness and who was found to be COVID positive. recently passed. Seen with daughter at bedside 7 days of sore/scratch throught and intermittent cough and general unwellness/fatigue Caregiver called daughter last night, seemed off and didn't want to talk on the phone which was unusual. +wheezing, +sob, +cough worsened from prior Took a home COVID test 08/23 which was positive, advised to go to ER by PCP Dr. Humphrey +Nausea and sour stomach, decreased appetite. Slightly/intermittently loose bowels in the last week, had some runny diarrhea intermittently. +headache intermittently which improves with tylenol ~once per day brings up some mucous/spit with cough, otherwise dry. 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 Code Status: Karina Liz is medical power of ip attorney/decision maker [phone]. DNR/DNI. WOuld not want intubation for declining respiratory status. Allergies Allergy/AdvReac Type Severity Reaction Status Date / Time lisinopril AdvReac Intermediate COUGH Verified 08/23/21 14:54 Sulfa (Sulfonamide AdvReac Intermediate VOMITING Verified 08/23/21 14:54 Antibiotics) Home Medications Medication Instructions Recorded Confirmed Type copper gluconate 2 mg capsule 2 mg PO HS 09/05/18 08/23/21 History cyanocobalamin (vitamin B-12) 2,000 mcg PO QAM 09/05/18 08/23/21 History 2,000 mcg tablet,extended release (Vitamin B-12 ER) blood-glucose meter (OneTouch #1 ea 06/10/20 05/13/21 Rx Ultra2 Meter) potassium citrate 10 mEq (1,080 10 meq PO BID #180 tab 10/16/20 08/23/21 Rx mg) tablet,extended release blood sugar diagnostic (OneTouch #300 ea 10/20/20 05/13/21 Rx Ultra Blue Test Strip) brinzolamide 1 % eye 2 drp OPR BID #10 ml 11/15/20 08/23/21 Rx drops,suspension (Azopt) trospium 20 mg tablet 20 mg PO BID #180 tab 01/02/21 08/23/21 Rx simvastatin 20 mg tablet 20 mg PO HS #90 tab 06/04/21 08/23/21 Rx lancets 30 gauge (OneTouch Delica #200 ea 06/23/21 Rx Lancets) famotidine 20 mg tablet 20 mg PO BID #180 tab 07/07/21 08/23/21 Rx clopidogrel 75 mg tablet 75 mg PO QAM #90 tab 07/13/21 08/23/21 Rx pen needle, diabetic 32 gauge x #200 ea 07/15/21 Rx 1/4" (UltiCare Pen Needle) insulin glargine 100 unit/mL (3 See Rx Instructions .ROUTE 08/05/21 08/23/21 Rx mL) subcutaneous pen (Lantus .COMPLEX #90 ml Solostar U-100 Insulin) allopurinol 100 mg tablet 100 mg PO HS 08/23/21 08/23/21 History cholecalciferol (vitamin D3) 50 2,000 unit PO HS 08/23/21 08/23/21 History mcg (2,000 unit) tablet (Vitamin D3) donepezil 10 mg tablet 10 mg PO HS 08/23/21 08/23/21 History fluoxetine 10 mg capsule 10 mg PO QAM 08/23/21 08/23/21 History latanoprost 0.005 % eye drops 1 drp OPL HS 08/23/21 08/23/21 History levothyroxine 75 mcg tablet 75 mcg PO DAILYBB 08/23/21 08/23/21 History (Synthroid) metformin 500 mg tablet 500 mg PO QAM PRN 08/23/21 08/23/21 History metoprolol succinate 25 mg 25 mg PO HS 08/23/21 08/23/21 History tablet,extended release 24 hr mirabegron 50 mg tablet,extended 50 mg PO QAM 08/23/21 08/23/21 History release 24 hr (Myrbetriq) omeprazole magnesium 20 mg 20 mg PO HS 08/23/21 08/23/21 History tablet,delayed release (Prilosec OTC) timolol maleate 0.5 % eye drops 1 drp OPB BID 08/23/21 08/23/21 History 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 Cerebral atherosclerosis Choledocholithiasis Chronic lower back pain Chronic reflux esophagitis Compression fracture of thoracic vertebra Depression Diarrhea Dyslipidemia Fibromyalgia Glaucoma Hemorrhoids, internal Hepatic steatosis History of CVA (cerebrovascular accident) (11/2020) History of gastric ulcer History of gastritis Erosive History of TIA (transient ischemic attack) Hypercalcemia Hypertension Hypothyroidism IBS (irritable bowel syndrome) Leukopenia Low serum copper for age Lumbar disc disease Lumbar stenosis with neurogenic claudication Mild cognitive impairment Night sweats Obstructive sleep apnea Osteoarthritis Osteopenia Pancytopenia Postherpetic neuralgia Renal cyst Sensorineural hearing loss (SNHL) of both ears Thrombocytopenia Type 2 diabetes mellitus Urinary calculus Urinary incontinence Ventral hernia Vitamin B12 deficiency Vitamin D deficiency Zoster ocular disease Surgical History History of cataract surgery right eye History of cholecystectomy History of colonoscopy History of knee replacement History of tonsillectomy S/P panniculectomy (02/20/19) 02/20/19 at [facility]- Lower abdominal panniculectomy with Dr. Mancia Status post laminectomy Family History Father , 81 from cancer Cardiac disorder Hypertension Kidney stones Prostate cancer Hearing loss Family/Other Cardiac disorder Hypertension Kidney stones Mother , age 98 with a senile dementia of the Alzheimer's type Dementia Hypertension Brother Dementia Lung cancer Myocardial infarction Aunt Breast cancer Other No family history of adverse response to anesthesia No family history of bleeding disorder Denies family history of Ovarian cancer Crohn's disease Colorectal cancer Social History Smoking Status: Never smoker Second Hand Exposure: No; Hx Alcohol Use: No Hx Substance Use: No Preferred Language: Korean Communication Ability: Effective Visual Impairment: Limited Hearing Ability: Use of Hearing Aid Machinist Wood Required: No Beliefs That Will Affect Care: None marital status: Current Living Situation: Alone Current Living Situation Comment: 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 NAD. Cooperative. HEENT: Atraumatic, normocephalic. PERLAA. Vision impaired bilaterally L>R, perlaa. Hearing intact but very [place]. Pulm: CTAB A&P. -wheezes, -rales, -rhonchi. Symmetrical chest rise. No increased work of breathing. No respiratory distress. Cardiac: RRR, +soft systolic murmur. Radial pulses intact and symmetrical. Abdominal: Nontender, nondistended, soft. BS present. Ext: Warm, dry, intact. No edema. Soft touch intact in hands and feet. Dorsiflexion/plantarflexion ankle intact bilateral, store sales leader strength intact bilat. Results & Data Results & Data ([facility]) Vital Signs (Past 12 Hours) Vital Signs Temp Pulse Pulse Resp BP BP Pulse Ox 08/23/21 12:04 37.4 C 78 78 16 145/61 H 145/61 H 95 PG Care Time/CCT Total # of Minutes Spent Total Time Spent with Patient: Total time spent is greater than 50% in coordination of care (as documented) at patient's floor/unit and/or counseling patient: Coding Level of Care Code 84972 Initial Inpt Care Lvl 3 Diagnoses Acute and chronic respiratory failure with hypoxia J96.21 UTI (urinary tract infection) N39.0 Weakness R53.1 History of CVA (cerebrovascular accident) Z86.73 Hypertension I10 Hypertension type: essential hypertension Hypothyroidism E03.9 Hypothyroidism type: unspecified Type 2 diabetes mellitus E11.42; Z79.4 Diabetes mellitus intermediate manager insulin use: with intermediate manager use Diabetes mellitus complication status: with neurologic complications Diabetes mellitus complication detail: with polyneuropathy (1) Hypertension Hypertension type: essential hypertension Qualified Code(s): I10 - Essential (primary) hypertension (2) Hypothyroidism Hypothyroidism type: unspecified Qualified Code(s): E03.9 - Hypothyroidism, unspecified (3) Type 2 diabetes mellitus Diabetes mellitus intermediate manager insulin use: with group home use Diabetes mellitus complication status: with neurologic complications Diabetes mellitus complication detail: with polyneuropathy Qualified Code(s): E11.42 - Type 2 diabetes mellitus with diabetic polyneuropathy; Z79.4 - FPC (current) use of insulin
[2021-08-23] MEDS ORDERED: cefTRIAXone SODIUM 1,000 MG in DEXTROSE 5% 50 ML IV ONE (16:45)
[2021-08-23] MEDS ORDERED: CARBOHYDRATES FOR HYPOGLYCEMIA PO PRN (18:24)
[2021-08-23] MEDS ORDERED: GLUCOSE 40% GEL 15 GM TUBE PO PRN (18:24)
[2021-08-23] MEDS ORDERED: GLUCAGON FOR INJ 1 MG VIAL SQ PRN (18:24)
[2021-08-23] MEDS ORDERED: DEXTROSE 50% 50 ML SYRINGE IV PRN (18:24)
[2021-08-23] MEDS ORDERED: POLYETHYLENE (MIRALAX) 17 GM PACK PO PRN (18:24)
[2021-08-23] MEDS ORDERED: GLUCOSE 10 TABS/TUBE PO PRN (18:24)
[2021-08-23] MEDS: INSULIN ASPART PER UNIT SC SCH ×2 (19:44→21:51)
[2021-08-23] MEDS: dexAMETHasone 6 MG in SYRINGE 0 ML IV SCH (19:55)
[2021-08-23] MEDS: ENOXAPARIN INJ 40 MG/0.4 ML SYR SQ SCH (19:55)
[2021-08-23] MEDS: POTASSIUM CITRATE 10 MEQ TAB PO SCH (20:06)
[2021-08-23] MEDS: allopurinoL 100 MG TAB PO SCH (20:06)
[2021-08-23] MEDS: BRINZOLAMIDE (AZOPT) OPS 10 ML BTL OPR SCH (20:06)
[2021-08-23] MEDS: SIMVASTATIN 20 MG TAB PO SCH (20:06)
[2021-08-23] MEDS: FAMOTIDINE 20 MG TAB PO SCH (20:06)
[2021-08-23] MEDS: DONEPEZIL HCL 10 MG TAB PO SCH (20:06)
[2021-08-23] MEDS: METOPROLOL SUCC 25MG EXT REL TAB PO SCH (20:06)
[2021-08-23] MEDS: LATANOPROST 0.005% OP SOLN 2.5 ML BTL OPL SCH (20:07)
[2021-08-23] MEDS: INSULIN GLARGINE SOLOSTAR 100 UNITS/ML 3 ML PEN SC SCH (20:30)
[2021-08-23] MEDS: ACETAMINOPHEN 325 MG TAB PO PRN (23:53)
--- NOTE | 2021-08-24 05:35 | Electrocardiogram Report ---
Test Reason : Blood Pressure : / mmHG Vent. Rate : 078 BPM Atrial Rate : 078 BPM P-R Int : 174 ms QRS Dur : 142 ms QT Int : 434 ms P-R-T Axes : 079 -01 028 degrees QTc Int : 494 ms Normal sinus rhythm Right bundle branch block Abnormal ECG When compared with ECG of 13-NOV-2020 23:02, No significant change was found Confirmed by Elliott Mayes ([id number]) on 08/24/2021 5:34:57 AM Referred By: Confirmed By:Elliott Mayes
[2021-08-24] MEDS: LEVOTHYROXINE SODIUM 75 MCG TABLET PO SCH (05:38)
[2021-08-24 07:53] LABS: Hematocrit (blood only) 36.4 % (37-47); Hemoglobin 12.3 g/dL (12.0-16.0); Mean Corpuscular Hgb Conc 33.8 g/dL (32-36); Mean Corpuscular Volume 103.7 fL (80-100); RDW Coefficient of Variation 16.4 % (11.5-14.5); RDW Standard Deviation 62.3 fL (36.4-46.3); Red Blood Count 3.51 M/uL (4.2-5.4); White Blood Count 1.43 K/uL (4.8-10.8)
[2021-08-24 08:04] LABS: Mean Platelet Volume 9.2 fL (7.4-10.4); Platelet Count 65 K/uL (130-400)
[2021-08-24 08:23] LABS: Basophils # (auto) 0.01 K/uL (0-0.2); Basophils % (auto) 0.7 %; Eosinophils # (auto) 0.01 K/uL (0-0.5); Eosinophils % (auto) 0.7 %; Lymphocytes # (auto) 0.33 K/uL (1.2-3.4); Lymphocytes % (auto) 23.1 %; Monocytes # (auto) 0.15 K/uL (0.11-0.59); Monocytes % (auto) 10.5 %; Neutrophils # (auto) 0.93 K/uL (1.4-6.5)
[2021-08-24 08:26] LABS: Albumin Globulin Ratio 1.4 (0.9-2); Albumin Level 3.4 gm/dl (3.4-5.0); BUN Creatinine Ratio 23.2 (10-20); Bilirubin,Total 0.5 mg/dl (0.2-1.0); Calcium 8.1 mg/dl (8.5-10.1); Creatinine Clr Calc Pharmacy 56.6 ml/min; Est GFR (African American) 89.5 ml/min; Est GFR (Non-African American) 77.2 ml/min; Globulin 2.5 gm/dl (2.5-4.0); Potassium 4.3 mmol/L (3.5-5.1); Total Protein 5.9 gm/dl (6.0-8.3)
[2021-08-24] MEDS: PANTOprazole 40 MG TAB PO SCH (08:44)
[2021-08-24] MEDS: POTASSIUM CITRATE 10 MEQ TAB PO SCH ×2 (08:44→20:07)
[2021-08-24] MEDS: FAMOTIDINE 20 MG TAB PO SCH ×2 (08:45→20:06)
[2021-08-24] MEDS: CLOPIDOGREL BISULFATE 75 MG TAB PO SCH (08:45)
[2021-08-24] MEDS: FLUoxetine HCL 10 MG CAP PO SCH (08:45)
[2021-08-24] MEDS: ENOXAPARIN INJ 40 MG/0.4 ML SYR SQ SCH ×2 (08:46→20:05)
[2021-08-24] MEDS: dexAMETHasone 6 MG in SYRINGE 0 ML IV SCH (08:46)
[2021-08-24] MEDS: BRINZOLAMIDE (AZOPT) OPS 10 ML BTL OPR SCH ×2 (08:46→20:04)
[2021-08-24] MEDS: INSULIN GLARGINE SOLOSTAR 100 UNITS/ML 3 ML PEN SC SCH ×2 (08:52→21:24)
[2021-08-24] MEDS: INSULIN ASPART PER UNIT SC SCH ×4 (08:53→21:24)
[2021-08-24] MEDS: FUROSEMIDE 20 MG TAB PO SCH (11:43)
--- NOTE | 2021-08-24 13:38 | Hospitalist Progress Note ---
Date of Service August 24, 2021 Assessment & Plan (1) Acute and chronic respiratory failure with hypoxia: Plan: Acute hypoxic respiratory failure 2/2 Covid pneumonia On admission WBC 2.37, hemoglobin 12.3, PLT 85 Neutropenic as noted below on morning labs Admitting cr 0.78, at normal baseline Admitting crp1.36 Procalcitonin negative UA with epithelial cells, bacteria, patient with urinary symptoms for 2 weeks. Empiric treatment of UTI with UC pending Lactate normal Transaminases normal at admission CXR: Cardiomegaly with pulmonary vascular congestion, interstitial coarsening suggestive of pulmonary edema versus interstitial pneumonitis. Last TTE 11/14/2020 with EF 60-65%, grade 1 diastolic dysfunction Lasix 20 mg oral daily to promote dry status Symptom onset 7-8 days ago Covid + 08/23/2021 No high flow requirements, does not meet criteria for baricitinib/tocilizumab at this time Desaturations to 80s with any ambulation, oxygen level was around 90s at rest. SPO2 goal oxygen greater than 90% -EKG: Normal sinus rhythm, QTC 494. Right bundle branch block. - Deffered remdesivir on shared risk/benefit discussion (2) Neutropenia: Plan: Neutropenic with absolute count 0.93, hemoglobin 12.3, platelet 65 from 85 Suspect viral suppression 2/2 Covid Continue Lovenox twice daily, if platelets downtrend below 50 or signs of active bleeding hold at that time Neutropenic precautions CBC daily (3) UTI (urinary tract infection): Plan: UTI Patient reports 2 weeks of urinary symptoms 4+ bacteria, trace leukocyte esterase with epithelial cells also present UC pending Continue Rocephin daily (4) Weakness: Plan: Weakness - W/ UTI and COVID as above - PT/OT pending - CM consulted (5) History of CVA (cerebrovascular accident): Plan: History of CVA/TIA Continue Plavix 75 mg daily Continue simvastatin 20 mg nightly (6) Hypertension: Plan: Hypertension Continue metoprolol 25 mg p.o. nightly (7) Hypothyroidism: Plan: Hypothyroidism Continue Synthroid 75 mcg daily (8) Type 2 diabetes mellitus: Plan: Type 2 diabetes mellitus - Goal BSG 503190 Glucose checks AC/at bedtime Basal/bolus Glargine 10 BID Correction factor 40 Carb ratio 15 Plan: PT/OT pending. Patient unvaccinated, high risk with comorbidities between day 7 and 10 of illness. Conservative management, if continues to do well and CRP downtrending consider placement and ambulatory oxygen test versus two-step Admission and Anticipated Discharge Date Admission Date: August 23, 2021 Subjective The on is seen at the bedside this morning. She reports she continues to have a dry cough which is not productive. Feels okay at rest and is able to breathe comfortably on room air at rest, but is short of breath with movement and desaturation with exertion. [place] cold overnight, no fever/chills/sweats. Denies chest pain, diarrhea, constipation. Feels weak overall, but no focal weakness. Is nervous having COVID, and is concerned about her strength and ability to return home. Has not yet seen PT/OT today. No other questions/concerns at time of bedside evaluation. Review of Systems Review of Systems: All systems reviewed & are unremarkable except as noted in Subjective Physical Exam Physical Exam: General: A&Ox3. NAD. Cooperative. HEENT: Atraumatic, normocephalic. PERLAA. Vision impaired bilaterally L>R, perlaa. Hearing intact but very [place]. Pulm: CTAB A&P. -wheezes, -rales, -rhonchi. Symmetrical chest rise. No increased work of breathing. No respiratory distress. Cardiac: RRR, +soft systolic murmur. Radial pulses intact and symmetrical. Abdominal: Nontender, nondistended, soft. BS present. Ext: Warm, dry, intact. No edema. Soft touch intact in hands and feet. Dorsiflexion/plantarflexion ankle intact bilateral, activity therapy specialist strength intact bilat. Results & Data Results & Data ([facility]) Vital Signs (Past 12 Hours) Vital Signs Pulse Resp BP Pulse Ox Pulse Ox Pulse Ox 08/24/21 11:50 92 96 08/24/21 07:58 84 18 184/93 H 96 PG Care Time/CCT Total # of Minutes Spent Total Time Spent with Patient: Total time spent is greater than 50% in coordination of care (as documented) at patient's floor/unit and/or counseling patient: Coding Level of Care Code 84025 Subseq Hosp Care Lvl 2 Diagnoses Acute and chronic respiratory failure with hypoxia J96.21 UTI (urinary tract infection) N39.0 Weakness R53.1 History of CVA (cerebrovascular accident) Z86.73 Hypertension I10 Hypertension type: essential hypertension Hypothyroidism E03.9 Hypothyroidism type: unspecified Type 2 diabetes mellitus E11.42; Z79.4 Diabetes mellitus manager long term care insulin use: with [facility] use Diabetes mellitus complication status: with neurologic complications Diabetes mellitus complication detail: with polyneuropathy Neutropenia D70.9 (1) Hypertension Hypertension type: essential hypertension Qualified Code(s): I10 - Essential (primary) hypertension (2) Hypothyroidism Hypothyroidism type: unspecified Qualified Code(s): E03.9 - Hypothyroidism, unspecified (3) Type 2 diabetes mellitus Diabetes mellitus manager long term care insulin use: with [facility] use Diabetes mellitus complication status: with neurologic complications Diabetes mellitus complication detail: with polyneuropathy Qualified Code(s): E11.42 - Type 2 diabetes mellitus with diabetic polyneuropathy; Z79.4 - termite inspector (current) use of insulin
[2021-08-24] MEDS: cefTRIAXone SODIUM 2,000 MG in DEXTROSE 5% 50 ML IV SCH ×2 (16:26→16:32)
[2021-08-24] MEDS ORDERED: cefTRIAXone SODIUM 1,000 MG in DEXTROSE 5% 50 ML IV SCH (16:30)
[2021-08-24] MEDS: ACETAMINOPHEN 325 MG TAB PO PRN (20:03)
[2021-08-24] MEDS: allopurinoL 100 MG TAB PO SCH (20:05)
[2021-08-24] MEDS: DONEPEZIL HCL 10 MG TAB PO SCH (20:05)
[2021-08-24] MEDS: LATANOPROST 0.005% OP SOLN 2.5 ML BTL OPL SCH (20:06)
[2021-08-24] MEDS: METOPROLOL SUCC 25MG EXT REL TAB PO SCH (20:07)
[2021-08-24] MEDS: SIMVASTATIN 20 MG TAB PO SCH (20:08)
[2021-08-25] MEDS: LEVOTHYROXINE SODIUM 75 MCG TABLET PO SCH (05:53)
[2021-08-25] MEDS: INSULIN ASPART PER UNIT SC SCH ×2 (09:05→12:25)
[2021-08-25] MEDS: INSULIN GLARGINE SOLOSTAR 100 UNITS/ML 3 ML PEN SC SCH (09:06)
[2021-08-25] MEDS: dexAMETHasone 6 MG in SYRINGE 0 ML IV SCH (09:14)
[2021-08-25] MEDS: PANTOprazole 40 MG TAB PO SCH (09:15)
[2021-08-25] MEDS: POTASSIUM CITRATE 10 MEQ TAB PO SCH (09:15)
[2021-08-25] MEDS: FLUoxetine HCL 10 MG CAP PO SCH (09:15)
[2021-08-25] MEDS: FUROSEMIDE 20 MG TAB PO SCH (09:15)
[2021-08-25] MEDS: CLOPIDOGREL BISULFATE 75 MG TAB PO SCH (09:15)
[2021-08-25] MEDS: ENOXAPARIN INJ 40 MG/0.4 ML SYR SQ SCH (09:16)
[2021-08-25] MEDS: FAMOTIDINE 20 MG TAB PO SCH (09:16)
[2021-08-25] MEDS: BRINZOLAMIDE (AZOPT) OPS 10 ML BTL OPR SCH (09:16)
[2021-08-25 11:33] LABS: Hematocrit (blood only) 40.6 % (37-47); Hemoglobin 13.9 g/dL (12.0-16.0); Mean Corpuscular Hemoglobin 35.5 pg (25-34); Mean Corpuscular Hgb Conc 34.2 g/dL (32-36); Mean Corpuscular Volume 103.6 fL (80-100); Mean Platelet Volume 9.2 fL (7.4-10.4); Platelet Count 99 K/uL (130-400); RDW Coefficient of Variation 16.4 % (11.5-14.5); RDW Standard Deviation 62.1 fL (36.4-46.3); Red Blood Count 3.92 M/uL (4.2-5.4); White Blood Count 4.79 K/uL (4.8-10.8)
[2021-08-25 11:55] LABS: Albumin Globulin Ratio 1.4 (0.9-2); BUN Creatinine Ratio 24.7 (10-20); Bilirubin,Total 0.6 mg/dl (0.2-1.0); C Reactive Protein 0.88 mg/dl (0-0.5); Calcium 9.4 mg/dl (8.5-10.1); Creatinine Clr Calc Pharmacy 45.9 ml/min; Est GFR (African American) 70.4 ml/min; Est GFR (Non-African American) 60.7 ml/min; Globulin 2.8 gm/dl (2.5-4.0); Potassium 4.1 mmol/L (3.5-5.1); Total Protein 6.8 gm/dl (6.0-8.3)
[2021-08-25 11:57] LABS: Eosinophils # (auto) 0.01 K/uL (0-0.5); Eosinophils % (auto) 0.2 %; Immature Granulocytes # (auto) 0.01 K/uL (0.00-0.02); Immature Granulocytes % (auto) 0.2 %; Lymphocytes # (auto) 0.44 K/uL (1.2-3.4); Lymphocytes % (auto) 9.2 %; Monocytes # (auto) 0.35 K/uL (0.11-0.59); Monocytes % (auto) 7.3 %; Neutrophils # (auto) 3.98 K/uL (1.4-6.5); Neutrophils % (auto) 83.1 %
[2021-08-25] MEDS: ACETAMINOPHEN 325 MG TAB PO PRN (16:30)
[2021-08-25] MEDS: cefTRIAXone SODIUM 2,000 MG in DEXTROSE 5% 50 ML IV SCH (16:30)
--- NOTE | 2021-08-25 16:36 | Discharge Summary ---
Date of Service August 25, 2021 Admission HPI Per Admitting Provider Amira is an 89-year-old female with past medical history of chronic reflux esophagitis, depression, hyperlipidemia, fibromyalgia, hypertension, hypothyroidism, ANUP, type 2 diabetes mellitus, CVA/TIA who presents with hy poxia, weakness and who was found to be COVID positive. recently passed. Seen with daughter at bedside 7 days of sore/scratch throught and intermittent cough and general unwellness/fatigue Caregiver called daughter last night, seemed off and didn't want to talk on the phone which was unusual. +wheezing, +sob, +cough worsened from prior Took a home COVID test 08/23 which was positive, advised to go to ER by PCP Dr. Humphrey +Nausea and sour stomach, decreased appetite. Slightly/intermittently loose bowels in the last week, had some runny diarrhea intermittently. +headache intermittently which improves with tylenol ~once per day brings up some mucous/spit with cough, otherwise dry. 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 Code Status: Karina Liz is medical power of divorce attorney/decision maker [phone]. DNR/DNI. WOuld not want intubation for declining respiratory status. Principal Diagnosis Acute and chronic respiratory failure with hypoxia Discharge Exam General: A&Ox3. NAD. Cooperative. HEENT: Atraumatic, normocephalic. PERLAA. Vision impaired bilaterally L>R, perlaa. Hearing intact but very [place] Pulm: CTAB A&P. -wheezes, -rales, -rhonchi. Symmetrical chest rise. No increased work of breathing. No respiratory distress. Cardiac: RRR, +soft systolic murmur. Radial pulses intact and symmetrical. Abdominal: Nontender, nondistended, soft. BS present. Ext: Warm, dry, intact. No edema. Soft touch intact in hands and feet. 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 Discharge Data Allergies Allergy/AdvReac Type Severity Reaction Status Date / Time lisinopril AdvReac Intermediate COUGH Verified 08/23/21 14:54 Sulfa (Sulfonamide AdvReac Intermediate VOMITING Verified 08/23/21 14:54 Antibiotics) Consultations 08/23/21 15:19 ED Decision to Admit Stat Hospital Course (1) Acute and chronic respiratory failure with hypoxia: Acute hypoxic respiratory failure 2/2 Covid pneumonia On admission WBC 2.37, hemoglobin 12.3, PLT 85 Neutropenic as noted below on morning labs Admitting cr 0.78, at normal baseline Admitting crp1.36 Procalcitonin negative UA with epithelial cells, bacteria, patient with urinary symptoms for 2 weeks. Empiric treatment of UTI with UC pending Lactate normal Transaminases normal at admission CXR: Cardiomegaly with pulmonary vascular congestion, interstitial coarsening suggestive of pulmonary edema versus interstitial pneumonitis. Last TTE 11/14/2020 with EF 60-65%, grade 1 diastolic dysfunction Lasix 20 mg oral daily to promote dry status Symptom onset 7-8 days ago Covid + 08/23/2021 No high flow requirements, does not meet criteria for baricitinib/tocilizumab at this time Desaturations to 80s with any ambulation, oxygen level was around 90s at rest. SPO2 goal oxygen greater than 90% -EKG: Normal sinus rhythm, QTC 494. Right bundle branch block. - Deffered remdesivir on shared risk/benefit discussion On 08/25 Patient on room air. Passed her 2 step. Will complete 10 day regimen of corticosteroid at home. Patient and family are agreeable with plan. CRP also continues to be downtrending. (2) Neutropenia: Neutropenic with absolute count 0.93, hemoglobin 12.3, platelet 65 from 85 Suspect viral suppression 2/2 Covid Continue Lovenox twice daily, if platelets downtrend below 50 or signs of active bleeding hold at that time Neutropenic precautions recommend rechecking CBC at time of next followup (3) UTI (urinary tract infection): UTI Patient reports 2 weeks of urinary symptoms 4+ bacteria, trace leukocyte esterase with epithelial cells also present UC pending On Rocephin daily, transitioned to cefdinir (4) Weakness: Weakness - W/ UTI and COVID as above - PT/OT: patient improved, and ambulating. -Patient also passed her 2 step and no longer requires oxygen. - CM consulted (5) History of CVA (cerebrovascular accident): History of CVA/TIA Continue Plavix 75 mg daily Continue simvastatin 20 mg nightly (6) Hypertension: Hypertension Continue metoprolol 25 mg p.o. nightly -BP has been at moments above goal and at times adequate during the hospital stay. Will recommend rechecking Blood pressure in both arms at time of outpatient visit. This may also be due to her being on steroids for her COVID (7) Hypothyroidism: Hypothyroidism Continue Synthroid 75 mcg daily (8) Type 2 diabetes mellitus: Type 2 diabetes mellitus - Goal BSG [id number] Glucose checks AC/at bedtime Basal/bolus Glargine 10 BID Correction factor 40 Carb ratio 15 -will resume home regimen at discharge PT/OT pending. Patient unvaccinated, high risk with comorbidities between day 7 and 10 of illness. Conservative management, if continues to do well and CRP downtrending consider placement and ambulatory oxygen test versus two-step Total Time Total Time Spent Total Time Spent (In Minutes): 55 Discharge Plan Discharge Items Patient Disposition: Home - Home Health Services Reason For Visit: COVID19 HYPOXIA Discharge Diagnosis: COVID 19, hypoxia Activity: Resume your previous activity Non-emergency contact: Primary Care Provider Call non-emergency contact if: you have any medication questions Follow-up/Referrals: Vivian Humphrey, [Primary Care Provider] - (Your primary care provider will call you within the next couple days to set up a follow-up discharge appointment.) Diet: Carb Consistent or DM2 Addtl Attending Provider Instructions: You have been hospitalized for an acute medical problem. During your stay at [facility], we have made an effort to correct the problem that brought you to the hospital while keeping you as comfortable as possible. Medications were used to bring your condition under control and your discharge instructions will include directions for any medications you should take after leaving the hospital. Please make sure you see your Primary Care Provider as part of your follow up plan. Recommend to continue dexamethasone for 7 more days. You will need antibiotics for 5 more days to treat a UTI You will also need probiotics to help with the loose stools. If stools get more loose, please call your PCP. Pending Studies at Discharge: No Stand-Alone Forms: My [facility], Smoking Cessation Medications and DC Order Prescriptions: New dexamethasone 6 mg tablet 6 mg PO DAILY Qty: 7 RF: 0 cefdinir 300 mg Capsule 300 mg PO BID Qty: 10 RF: 0 Probiotic 3 billion cell capsule 3,000 mmu cells PO DAILY Qty: 7 RF: 0 Continued (DME) blood-glucose meter [EPV SOLARTouch Ultra2 Meter] Kit See Rx Instructions .ROUTE .MEDSUPPLY Qty: 1 RF: 0 potassium citrate 10 mEq (1,080 mg) tablet extended release 10 meq PO BID Qty: 180 RF: 3 (DME) OneTouch Ultra Blue Test Strip Strip See Dose Instructions .ROUTE .MEDSUPPLY Qty: 300 RF: 3 simvastatin 20 mg tablet 20 mg PO HS Qty: 90 RF: 1 (DME) lancets [Mealnut Delica Lancets] 30 gauge misc See Rx Instructions .ROUTE .MEDSUPPLY Qty: 200 RF: 3 famotidine 20 mg tablet 20 mg PO BID Qty: 180 RF: 0 clopidogrel 75 mg tablet 75 mg PO QAM Qty: 90 RF: 1 (DME) pen needle, diabetic [UltiCare Pen Needle] 32 gauge x 1/4" needle See Dose Instructions .ROUTE .MEDSUPPLY Qty: 200 RF: 3 Lantus Solostar U-100 Insulin 100 unit/mL (3 mL) insulin pen See Rx Instructions .ROUTE .COMPLEX Qty: 90 RF: 5 trospium 20 mg tablet 20 mg PO BID Qty: 180 RF: 3 cyanocobalamin (vitamin B-12) [Vitamin B-12] 2,000 mcg Tablet Extended Release 2,000 mcg PO QAM RF: 0 copper gluconate 2 mg Capsule 2 mg PO HS RF: 0 latanoprost 0.005 % drops 1 drp OPL HS RF: 0 timolol maleate 0.5 % drops 1 drp OPB BID RF: 0 metformin 500 mg tablet 500 mg PO QAM PRN (Reason: high sugar levels) RF: 0 donepezil 10 mg tablet 10 mg PO HS RF: 0 levothyroxine [Synthroid] 75 mcg tablet 75 mcg PO DAILYBB RF: 0 fluoxetine 10 mg capsule 10 mg PO QAM RF: 0 metoprolol succinate 25 mg tablet extended release 24 hr 25 mg PO HS RF: 0 omeprazole magnesium [Prilosec OTC] 20 mg tablet,delayed release (DR/EC) 20 mg PO HS RF: 0 cholecalciferol (vitamin D3) [Vitamin D3] 2,000 unit tablet 2,000 unit PO HS RF: 0 Myrbetriq 50 mg tablet extended release 24 hr 50 mg PO QAM RF: 0 allopurinol 100 mg tablet 100 mg PO HS RF: 0 brinzolamide [Azopt] 1 % Drops,Suspension 2 drp OPR BID Qty: 10 RF: 0 Discharge Orders: Discharge Order (Routine); Ordered 08/25/21 Ordered By: Venu Obregno Admission Data Admit Date/Time: 08/23/21 16:21 Attending Provider: Venu Obregon Admit Provider: Zeeshan Flowers Primary Care Provider: Vivian Humphrey Other Providers: Zeeshan Flowers ; Alber Wright [facility] Other Interventions: Discharge Summary Assessment (RN) Last Done: 08/25/21 16:48 Coding Level of Care Code D/C DAY MANAGEMENT >30 MINS Diagnoses Acute and chronic respiratory failure with hypoxia J96.21 Neutropenia D70.9 UTI (urinary tract infection) N39.0 Weakness R53.1 History of CVA (cerebrovascular accident) Z86.73 Hypertension I10 Hypertension type: essential hypertension Hypothyroidism E03.9 Hypothyroidism type: unspecified Type 2 diabetes mellitus E11.42; Z79.4 Diabetes mellitus complication detail: with polyneuropathy Diabetes mellitus complication status: with neurologic complications Diabetes mellitus prison insulin use: with prison use
[2021-08-25] MEDS ORDERED: CEFDINIR 300 MG CAP PO SCH (21:00)
== END 2021-08-25 17:35 | disposition home health service (06) | DRG 177 ==
LOC: ED 12:16 → 2W 16:21 → SUATTDRO 16:21 → 2W 17:20

== ENCOUNTER 2021-08-26 11:30 | Inpatient (IN) ==
[2021-08-26] MEDS ORDERED: guaiFENesin 600 MG TABCR PO STA (12:50)
[2021-08-26] MEDS ORDERED: ALBUTEROL HFA 8 GM INHALER INH ONE (12:50)
--- NOTE | 2021-08-26 13:08 | Emergency Department Note ---
Impression & Plan COVID-19, Pneumonia due to COVID-19 virus, Shortness of breath ED Provider Note NAME: ANAM GILES AGE: 89 SEX: F ARRIVES VIA: Ambulance INFORMANT: Patient ED PROVIDER(S): Mauricio Dalton MD CHIEF COMPLAINT: SOB, Covid-19. PLAN: Disposition: Admit MEDICAL DECISION MAKING: The patient is an 89-year-old woman who presents emerge department accompanied by her granddaughter for evaluation of worsening shortness of breath last night into this morning in the setting of being discharged yesterday following admission for COVID-19 pneumonia. The patient did pass her 2-step and so did not require oxygen on discharge. The patient was doing okay yesterday but then felt her shortness of breath worsened in the evening and particularly this morning when she was sitting in her recliner. The patient's granddaughter notes that she became short of breath and her blood pressure was elevated in the 200s/100s. EMS arrived and did place the patient on supplemental oxygen though her oxygen level did not respond and when they contacted their PCPs office they were referred to the emergency department. On arrival the patient is in no acute distress, afebrile with stable vital signs. Her blood pressure is 160s/60s. Her O2 saturation is 95% on room air at this time. EKG without acute ischemia. Chest x-ray demonstrates interval development of bilateral airspace opacities in the setting of the patient's COVID-19 infection is suspicious for COVID-19 pneumonia. Aspiration pneumonitis is also considered. WBC 4.3K with lymphopenia of 0.61 consistent with the patient's known COVID-19 infection and similar to prior. H/H similar to prior. Platelets 100K also similar to prior. Chemistry without metabolic acidosis. Magnesium 1.6 and electrolytes otherwise unremarkable. LFTs are unremarkable. Troponin 0.03, within normal limits. Lipase is not elevated. The cause of the patient's acute respiratory distress prior to arrival is unclear at this time. Given the description of the patient lying back in a recliner with acute BP elevation an episode of flash pulmonary edema/hypertensive emergency is possible. Aspiration is also considered. However, while the patient has recovered given her development of airspace opacities reasonable to admit the patient for further management observation. The patient and the granddaughter at the bedside agree with this plan. Case was d/w Dr. Flowers [facility] hospitalist who will evaluate the patient for admission. Triage Nursing notes reviewed and agree them. Prior medical records reviewed Vital Signs: reviewed and remarkable for no significant abnormalities Differential diagnosis: Reactive airway disease, pneumonia, pneumothorax, COPD, CHF, infections, cardiac ischemia, pulmonary embolism, musculoskeletal, gastrointestinal, as well as other pathologies. ER treatment provided: See below. Diagnostics interpreted by me: ECG: Normal sinus rhythm, 84 bpm, right bundle branch block, no ectopy, no overt ST elevation or depression, QTC 42, cures 132 per Cardiac Monitoring: An order for continuous cardiac monitoring was placed and demonstrated normal sinus rhythm, 84 bpm, no ectopy. Laboratory studies: See below Imaging studies: See below Consultation(s): Case was d/w Dr. Flowers, [facility] hospitalist who will evaluate the patient for admission. HPI: The patient is an 89-year-old woman who presents emerge department accompanied by her granddaughter for evaluation of worsening shortness of breath last night into this morning in the setting of being discharged yesterday following admission for COVID-19 pneumonia. The patient did pass her 2-step and so did not require oxygen on discharge. The patient was doing okay yesterday but then felt her shortness of breath worsened in the evening and particularly this morning when she was sitting in her recliner. The patient's granddaughter notes that she became short of breath and her blood pressure was elevated in the 200s/100s. EMS arrived and did place the patient on supplemental oxygen though her oxygen level did not respond and when they contacted their PCPs office they were referred to the emergency department. ROS: See above HPI for pertinent positives & negatives. A total of 10 systems reviewed and were otherwise negative. VITALS:See Below PHYSICAL EXAMINATION: GENERAL: Awake, alert, acute on chronically ill-appearing, in no distress, BMI 44.2. HENT: Normocephalic, atraumatic. Oropharynx unremarkable. EYES: Normal conjunctiva. Sclera non-icteric. NECK: Supple. No nuchal rigidity. FROM. No JVD. RESPIRATORY: Diminished breath sounds at the bases with intermittent wheeze and rhonchi. Juliana dyspneic without significant increased work of breathing. CARDIAC: Regular rate, normal rhythm. Extremities warm and well perfused. Pulses equal. ABDOMEN: Soft, non-distended. No tenderness to palpation. No rebound or guarding. No masses. RECTAL: Deferred. MUSCULOSKELETAL: Chest examination reveals no tenderness. The back is symmetri asaf on inspection without obvious abnormality. There is no CVA tenderness to palpation. No joint edema. LOWER EXTREMITIES: Calves are equal size bilaterally and non-tender. No edema. No discoloration. NEURO: Normal sensorium. No sensory or motor deficits noted. SKIN: No rash or jaundice noted. 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 Cerebral atherosclerosis Choledocholithiasis Chronic lower back pain Chronic reflux esophagitis Compression fracture of thoracic vertebra Depression Diarrhea Dyslipidemia Fibromyalgia Glaucoma Hemorrhoids, internal Hepatic steatosis History of CVA (cerebrovascular accident) (11/2020) History of gastric ulcer History of gastritis Erosive History of TIA (transient ischemic attack) Hypercalcemia Hypertension Hypothyroidism IBS (irritable bowel syndrome) Leukopenia Low serum copper for age Lumbar disc disease Lumbar stenosis with neurogenic claudication Mild cognitive impairment Night sweats Obstructive sleep apnea Osteoarthritis Osteopenia Pancytopenia Postherpetic neuralgia Renal cyst Sensorineural hearing loss (SNHL) of both ears Thrombocytopenia Type 2 diabetes mellitus Urinary calculus Urinary incontinence Ventral hernia Vitamin B12 deficiency Vitamin D deficiency Zoster ocular disease Surgical History History of cataract surgery right eye History of cholecystectomy History of colonoscopy History of knee replacement History of tonsillectomy S/P panniculectomy (02/20/19) 02/20/19 at [facility]- Lower abdominal panniculectomy with Dr. Mancia Status post laminectomy Family History Father , 81 from cancer Cardiac disorder Hypertension Kidney stones Prostate cancer Hearing loss Family/Other Cardiac disorder Hypertension Kidney stones Mother , age 98 with a senile dementia of the Alzheimer's type Dementia Hypertension Brother Dementia Lung cancer Myocardial infarction Aunt Breast cancer Other No family history of adverse response to anesthesia No family history of bleeding disorder Denies family history of Ovarian cancer Crohn's disease Colorectal cancer Social History Smoking Status: Never smoker Second Hand Exposure: No; Hx Alcohol Use: No Hx Substance Use: No Preferred Language: Greenlandic Communication Ability: Effective Communication Ability Comment: [place] and almost blind Visual Impairment: Limited Hearing Ability: Use of Hearing Aid 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: No Beliefs That Will Affect Care: None marital status: / Current Living Situation: Family Current Living Situation Comment: Lives w/ great granddaughter current occupational status: retired How many Children do You have: 2 Other Information That Helps Us Care for You: No Feels Safe at Home: Yes Safety Concerns: Feels Safe At This Time Childhood Exposure to Second-Hand Smoke: No caffeine: Yes (Tea 1 cup per day.) during the past year weight has: remained stable Dental Care, Regularly: Yes Physical Activity Frequency: Does not Exercise Seatbelt Use: always Sunscreen Use: No Assistive Devices: Walker Allergies Allergies Allergy/AdvReac Type Severity Reaction Status Date / Time lisinopril AdvReac Intermediate COUGH Verified 08/26/21 12:18 Sulfa (Sulfonamide AdvReac Intermediate VOMITING Verified 08/26/21 12:18 Antibiotics) Home Meds Home Medications Medication Instructions Recorded Confirmed copper gluconate 2 mg capsule 2 mg PO 09/05/18 08/26/21 cyanocobalamin (vitamin B-12) 2,000 mcg PO QAM 09/05/18 08/26/21 2,000 mcg tablet,extended release (Vitamin B-12 ER) allopurinol 100 mg tablet 100 mg PO 08/23/21 08/26/21 cholecalciferol (vitamin D3) 50 2,000 unit PO 08/23/21 08/26/21 mcg (2,000 unit) tablet (Vitamin D3) donepezil 10 mg tablet 10 mg PO 08/23/21 08/26/21 fluoxetine 10 mg capsule 10 mg PO QAM 08/23/21 08/26/21 latanoprost 0.005 % eye drops 1 drp OPL 08/23/21 08/26/21 levothyroxine 75 mcg tablet 75 mcg PO DAILYBB 08/23/21 08/26/21 (Synthroid) metformin 500 mg tablet 500 mg PO QAM PRN 08/23/21 08/26/21 metoprolol succinate 25 mg 25 mg PO 08/23/21 08/26/21 tablet,extended release 24 hr mirabegron 50 mg tablet,extended 50 mg PO QAM 08/23/21 08/26/21 release 24 hr (Myrbetriq) omeprazole magnesium 20 mg 20 mg PO HS 08/23/21 08/26/21 tablet,delayed release (Prilosec OTC) timolol maleate 0.5 % eye drops 1 drp OPB BID 08/23/21 08/26/21 Previous Rx's Medication Instructions Recorded potassium citrate 10 mEq (1,080 10 meq PO BID #180 tab 10/16/20 mg) tablet,extended release brinzolamide 1 % eye 2 drp OPR BID #10 ml 11/15/20 drops,suspension (Azopt) trospium 20 mg tablet 20 mg PO BID #180 tab 01/02/21 simvastatin 20 mg tablet 20 mg PO HS #90 tab 06/04/21 famotidine 20 mg tablet 20 mg PO BID #180 tab 07/07/21 clopidogrel 75 mg tablet 75 mg PO QAM #90 tab 07/13/21 insulin glargine 100 unit/mL (3 See Rx Instructions .ROUTE 08/05/21 mL) subcutaneous pen (Lantus .COMPLEX #90 ml Solostar U-100 Insulin) cefdinir 300 mg capsule 300 mg PO BID #10 cap 08/25/21 dexamethasone 6 mg tablet 6 mg PO DAILY #7 tab 08/25/21 lactobacillus combination no.4 3 3,000 mmu cells PO DAILY #7 cap 08/25/21 billion cell capsule (Probiotic) Results & Data (ED) Vital Signs Vital Signs - 24 hr 08/26/21 11:51 08/26/21 11:56 08/26/21 11:57 Temperature 37.6 C Temperature Source Oral Pulse Rate 85 Pulse Rate [Apical] 82 Respiratory Rate 24 22 Blood Pressure 163/69 H Blood Pressure [Left Arm] 163/69 H Blood Pressure Mean 100 Blood Pressure Mean [Left Arm] 100 Pulse Oximetry 95 95 95 Oxygen Delivery Method Room Air Room Air Room Air Sepsis Recent Fever Within 48 Hours Yes Sepsis New/Unexplained Change in Mental Status No Sepsis Action Taken by Nursing No Action Required 08/26/21 13:22 Temperature Temperature Source Pulse Rate Pulse Rate [Apical] 85 Respiratory Rate 24 Blood Pressure Blood Pressure [Left Arm] Blood Pressure Mean Blood Pressure Mean [Left Arm] Pulse Oximetry 95 Oxygen Delivery Method Room Air Sepsis Recent Fever Within 48 Hours Sepsis New/Unexplained Change in Mental Status Sepsis Action Taken by Nursing Laboratory Data Attestation: I reviewed the patient's lab results. Result diagrams: 08/27/21 06:01 08/27/21 06:01 Lab Results 08/26/21 08/26/21 08/26/21 Range/Units 12:57 12:57 12:57 WBC 4.37 L (4.8-10.8) K/uL RBC 3.60 L (4.2-5.4) M/uL Hgb 12.7 (12.0-16.0) g/dL Hct 37.1 (37-47) % MCV 103.1 H (80-100) fL MCH 35.3 H (25-34) pg MCHC 34.2 (32-36) g/dL RDW Std Deviation 62.7 H (36.4-46.3) fL RDW Coeff of Gillian 16.4 H (11.5-14.5) % Plt Count 106 L (130-400) K/uL MPV 9.4 (7.4-10.4) fL Immature Gran % (Auto) 0.0 % Neut % (Auto) 73.4 % Lymph % (Auto) 14.0 % [place] % (Auto) 12.4 % Eos % (Auto) 0.0 % Baso % (Auto) 0.2 % Neut # (Auto) 3.21 (1.4-6.5) K/uL Lymph # (Auto) 0.61 L (1.2-3.4) K/uL [place] # (Auto) 0.54 (0.11-0.59) K/uL Eos # (Auto) 0.00 (0-0.5) K/uL Baso # (Auto) 0.01 (0-0.2) K/uL Immature Gran # (Auto) 0.00 (0.00-0.02) K/uL Sodium 138 (136-145) mmol/L Potassium 4.0 (3.5-5.1) mmol/L Chloride 102 (98-107) mmol/L Carbon Dioxide 30 (21-32) mmol/L Anion Gap 6 (3-11) BUN 24 H (6-23) mg/dl Creatinine 0.85 (0.6-1.2) mg/dl Est Cr Clr Drug Dosing 47.4 ml/min Est GFR ( Amer) 70.4 ml/min Est GFR (Non-Af Amer) 60.7 ml/min BUN/Creatinine Ratio 28.2 H (10-20) Glucose 104 H (70-99(Fasting)) mg/dl Calcium 9.1 (8.5-10.1) mg/dl Phosphorus 2.6 (2.5-4.9) mg/dl Magnesium 1.6 L (1.7-2.4) mg/dl Total Bilirubin 0.7 (0.2-1.0) mg/dl AST 19 (13-39) U/L ALT 12 (7-52) U/L Alkaline Phosphatase 54 (34-104) U/L Troponin I 0.03 (0-0.04) ng/ml B-Natriuretic Peptide 87 (0-100) pg/ml Total Protein 6.5 (6.0-8.3) gm/dl Albumin 3.8 (3.4-5.0) gm/dl Globulin 2.7 (2.5-4.0) gm/dl Albumin/Globulin Ratio 1.4 (0.9-2) Lipase 41 (11-82) U/L Procalcitonin (0-0.5) ng/ml 08/26/21 Range/Units 12:57 WBC (4.8-10.8) K/uL RBC (4.2-5.4) M/uL Hgb (12.0-16.0) g/dL Hct (37-47) % MCV (80-100) fL MCH (25-34) pg MCHC (32-36) g/dL RDW Std Deviation (36.4-46.3) fL RDW Coeff of Gillian (11.5-14.5) % Plt Count (130-400) K/uL MPV (7.4-10.4) fL Immature Gran % (Auto) % Neut % (Auto) % Lymph % (Auto) % [place] % (Auto) % Eos % (Auto) % Baso % (Auto) % Neut # (Auto) (1.4-6.5) K/uL Lymph # (Auto) (1.2-3.4) K/uL [place] # (Auto) (0.11-0.59) K/uL Eos # (Auto) (0-0.5) K/uL Baso # (Auto) (0-0.2) K/uL Immature Gran # (Auto) (0.00-0.02) K/uL Sodium (136-145) mmol/L Potassium (3.5-5.1) mmol/L Chloride (98-107) mmol/L Carbon Dioxide (21-32) mmol/L Anion Gap (3-11) BUN (6-23) mg/dl Creatinine (0.6-1.2) mg/dl Est Cr Clr Drug Dosing ml/min Est GFR ( Amer) ml/min Est GFR (Non-Af Amer) ml/min BUN/Creatinine Ratio (10-20) Glucose (70-99(Fasting)) mg/dl Calcium (8.5-10.1) mg/dl Phosphorus (2.5-4.9) mg/dl Magnesium (1.7-2.4) mg/dl Total Bilirubin (0.2-1.0) mg/dl AST (13-39) U/L ALT (7-52) U/L Alkaline Phosphatase (34-104) U/L Troponin I (0-0.04) ng/ml B-Natriuretic Peptide (0-100) pg/ml Total Protein (6.0-8.3) gm/dl Albumin (3.4-5.0) gm/dl Globulin (2.5-4.0) gm/dl Albumin/Globulin Ratio (0.9-2) Lipase (11-82) U/L Procalcitonin < 0.05 (0-0.5) ng/ml Administered Medications Acetaminophen (Acetaminophen 325 Mg Tab) 650 mg PO Q4H PRN PRN Reason: pain/fever Stop: 09/25/21 16:00 Last Admin: 08/26/21 22:45 Dose: 650 mg Documented by: [id number] Allopurinol (Allopurinol 100 Mg Tab) 100 mg PO HS ASAD Stop: 09/25/21 20:59 Last Admin: 08/26/21 22:47 Dose: 100 mg Documented by: [id number] Cefdinir (Cefdinir 300 Mg Cap) 300 mg PO BID ASAD Stop: 08/31/21 20:59 Last Admin: 08/26/21 22:47 Dose: 300 mg Documented by: [id number] Donepezil HCl (Donepezil Hcl 10 Mg Tab) 10 mg PO HS [facility] Stop: 09/25/21 20:59 Last Admin: 08/26/21 22:47 Dose: 10 mg Documented by: [id number] Enoxaparin Sodium (Enoxaparin Inj 40 Mg/0.4 Ml Syr) 40 mg SQ Q12H ASAD Stop: 09/25/21 20:59 Last Admin: 08/26/21 22:48 Dose: 40 mg Documented by: [id number] Famotidine (Famotidine 20 Mg Tab) 20 mg PO BID ASAD Stop: 09/25/21 20:59 Last Admin: 08/26/21 22:47 Dose: 20 mg Documented by: [id number] Dexamethasone 6 mg/ Syringe 1.5 mls @ 1 mls/min IV DAILY ASAD Stop: 08/31/21 09:02 Last Admin: 08/26/21 16:53 Dose: 1 mls/min Documented by: [id number] Insulin Aspart (Insulin Aspart Per Unit) 0 units SC ACHS [facility] Stop: 09/25/21 16:29 Last Admin: 08/26/21 22:00 Dose: 1 units Documented by: [id number] Cosigned by: [id number] Admin: 08/26/21 18:00 Dose: Not Given Documented by: [id number] Insulin Glargine (Insulin Glargine Solostar 100 Units/Ml 3 Ml Pen) 10 units SC BID [facility] Stop: 09/25/21 20:59 Last Admin: 08/26/21 23:15 Dose: 10 units Documented by: [id number] Cosigned by: [id number] Latanoprost (Latanoprost 0.005% Op Soln 2.5 Ml Btl) 1 drops OPL HS [facility] Stop: 09/25/21 20:59 Last Admin: 08/26/21 22:48 Dose: 1 drops Documented by: [id number] Levothyroxine Sodium (Levothyroxine Sodium 75 Mcg Tablet) 75 mcg PO DAILYBB [facility] Stop: 09/26/21 06:29 Last Admin: 08/27/21 06:11 Dose: 75 mcg Documented by: [id number] Magnesium Oxide (Magnesium Oxide 400 Mg Tab) 400 mg PO QAM ASAD Stop: 09/25/21 14:14 Last Admin: 08/26/21 14:30 Dose: 400 mg Documented by: [id number] Metoprolol Succinate (Metoprolol Succ 25mg Ext Rel Tab) 25 mg PO HS [facility] Stop: 09/25/21 20:59 Last Admin: 08/26/21 22:47 Dose: 25 mg Documented by: [id number] Pantoprazole Sodium (Pantoprazole 40 Mg Tab) 40 mg PO HS [facility] Stop: 09/25/21 20:59 Last Admin: 08/26/21 22:46 Dose: 40 mg Documented by: [id number] Simvastatin (Simvastatin 20 Mg Tab) 20 mg PO [facility] Stop: 09/25/21 20:59 Last Admin: 08/26/21 22:47 Dose: 20 mg Documented by: [id number] Discontinued Medications Albuterol (Albuterol Hfa 8 Gm Inhaler) 2 puffs INH NOW ONE Stop: 08/26/21 12:51 Last Admin: 08/26/21 13:31 Dose: 2 puffs Documented by: [id number] Guaifenesin (Guaifenesin 600 Mg Tabcr) 600 mg PO NOW STA Stop: 08/26/21 12:51 Last Admin: 08/26/21 13:32 Dose: 600 mg Documented by: [id number] Imaging Data Radiologist's Impression: Chest X-Ray 08/26/21 12:20 XR chest 1V portable CLINICAL HISTORY: Atypical chest pain. COMPARISON STUDY: Chest radiograph August 23, 2021. FINDINGS: No pneumothorax or pleural effusion is identified. Bibasilar opacities are present. Cardiomegaly is unchanged. Interstitial thickening is similar to prior exams. IMPRESSION: 1. Interval development of bibasilar opacities. This could reflect pneumonia or aspiration pneumonitis. Radiographic follow-up is recommended. 2. Cardiomegaly and stable interstitial thickening. ACT 112: Negative or not required by law. Electronically signed by: Hamilton Gallagher M.D. 08/26/2021 1:31 PM Discharge Plan Visit Data Chief Complaint: Shortness of Breath/Dyspnea ED Provider: Mauricio Dalton Discharge Problem: COVID-19, Pneumonia due to COVID-19 virus, Shortness of breath Patient Disposition: Admitted As Inpatient Discharge Instructions Interventions: ED Discharge Assessment Last Done: 08/26/21 16:20
[2021-08-26 13:28] LABS: Basophils # (auto) 0.01 K/uL (0-0.2); Basophils % (auto) 0.2 %; Hematocrit (blood only) 37.1 % (37-47); Hemoglobin 12.7 g/dL (12.0-16.0); Lymphocytes # (auto) 0.61 K/uL (1.2-3.4); Mean Corpuscular Hemoglobin 35.3 pg (25-34); Mean Corpuscular Hgb Conc 34.2 g/dL (32-36); Mean Corpuscular Volume 103.1 fL (80-100); Mean Platelet Volume 9.4 fL (7.4-10.4); Monocytes # (auto) 0.54 K/uL (0.11-0.59); Monocytes % (auto) 12.4 %; Neutrophils # (auto) 3.21 K/uL (1.4-6.5); Neutrophils % (auto) 73.4 %; Platelet Count 106 K/uL (130-400); RDW Coefficient of Variation 16.4 % (11.5-14.5); RDW Standard Deviation 62.7 fL (36.4-46.3); White Blood Count 4.37 K/uL (4.8-10.8)
--- NOTE | 2021-08-26 13:33 | XRay Report ---
XR chest 1V portable CLINICAL HISTORY: Atypical chest pain. COMPARISON STUDY: Chest radiograph August 23, 2021. FINDINGS: No pneumothorax or pleural effusion is identified. Bibasilar opacities are present. Cardiom egaly is unchanged. Interstitial thickening is similar to prior exams. IMPRESSION: 1. Interval development of bibasilar opacities. This could reflect pneumonia or aspiration pneumoniti s. Radiographic follow-up is recommended. 2. Cardiomegaly and stable interstitial thickening. ACT 112: Negative or not required by law. Electronically signed by: Hamilton Gallagher M.D. 08/26/2021 1:31 PM
[2021-08-26 13:52] LABS: Troponin I 0.03 ng/ml (0-0.04)
[2021-08-26 14:05] LABS: Albumin Globulin Ratio 1.4 (0.9-2); Albumin Level 3.8 gm/dl (3.4-5.0); BUN Creatinine Ratio 28.2 (10-20); Bilirubin,Total 0.7 mg/dl (0.2-1.0); Calcium 9.1 mg/dl (8.5-10.1); Creatinine Clr Calc Pharmacy 47.4 ml/min; Est GFR (African American) 70.4 ml/min; Est GFR (Non-African American) 60.7 ml/min; Globulin 2.7 gm/dl (2.5-4.0); Magnesium 1.6 mg/dl (1.7-2.4); Phosphorus 2.6 mg/dl (2.5-4.9); Total Protein 6.5 gm/dl (6.0-8.3)
--- NOTE | 2021-08-26 14:08 | History & Physical Report ---
Date of Service August 26, 2021 Assessment & Plan (1) COVID-19: Plan: No leukocytosis on admission, remains somewhat viral suppressed. On admission creatinine 0.85, at baseline CRP previously downtrending from 1.36-0.88, repeat pending Procalcitonin pending CXR with bibasilar changes? Aspiration pneumonitis versus pneumonia. Procalcitonin pending. Transaminases normal at admission CXR: Cardiomegaly with pulmonary vascular congestion, interstitial coarsening suggestive of pulmonary edema versus interstitial pneumonitis. Last TTE 11/14/2020 with EF 60-65%, grade 1 diastolic dysfunction Symptom onset ~08/15/21 days ago Covid + 08/23/2021 No high flow requirements, does not meet criteria for baricitinib/tocilizumab at this time Desaturations to 80s with any ambulation, oxygen level was around 90s at rest. SPO2 goal oxygen greater than 90% -EKG: Normal sinus rhythm, QTC 481. Right bundle branch block. Continue dexamethasone If pro-Edward positive or worsening expand cover for atypical/anaerobes as noted below (2) Neutropenia: Plan: Suspect viral suppression, follow as above (3) UTI (urinary tract infection): Plan: Prior UC pending speciation Continue treatment with cefdinir, may adjust antibiotics as below (4) Acute and chronic respiratory failure with hypoxia: Plan: Patient with normal O2 sats on arrival in ER. Unclear from history of perhaps was misreading O2 sat and pulse rate, however patient does desat down to 88 with speech intermittently and with x-ray findings as above. Denies aspiration events/choking/aspiration. We will have speech see. Pro-Edward pending, if worsening or pro-Edward positive would convert cefdinir for UTI to Unasyn for anaerobe coverage, Doxy for atypical coverage given bilateral findings and prolonged QT. (5) Depression: Plan: Continue home SSRI (6) Hypertension: Plan: Continue home [id number] on admission, continue home metoprolol Reportedly over 200 when woke up,? Aspiration event or mucous plugging (7) Hypothyroidism: Plan: Continue home Synthroid (8) Obstructive sleep apnea: Plan: CPAP nightly (9) Type 2 diabetes mellitus: Plan: Roshan checks AC/at bedtime Goal BSG 1001 40 Lantus 10 twice daily SSI CF 40, carb ratio 15 (10) History of CVA (cerebrovascular accident): Plan: Continue Plavix Plan: DVT prophylaxis: Covid dosed Lovenox Diet: Pured due to not having dentures, DM2 CODE STATUS: DNR/DNI discussed with patient Disposition: Medical for observation History of Present Illness Primary Care Provider: Vivian Humphrey DO Amira is an 89-year-old female with past medical history of reflux esophagitis, depression, hyperlipidemia, fibromyalgia, hypertension, hypothyroidism, sleep apnea, type 2 diabetes mellitus, CVA/TIA who was recently admitted and discharged 08/25/2021 with Covid, unvaccinated, who returned home without oxygen requirements but had hypertension and additional shortness of breath today prompting return to the ER and who is been recommended for reevaluation and observation. Willa was reportedly at home with her granddaughter when she developed worsening shortness of breath last night and this morning after being discharged home. Had passed a two-step at time of discharge. EMS was called and reportedly had a blood pressure in 200s/100s, patient was placed on supplemental oxygen without improvement unclear what initial oxygen level in 80s. On arrival to the ER blood pressure 160s/60s O2 sat 95% on room air. Chest x-ray in the emergency department shows development of bibasilar opacities reflecting pneumonia versus aspiration pneumonitis, cardiomegaly, stable interstitial thickening. Troponin negative, BNP normal, white blood cell count 4.37, pro-Edward pending. EKG with right bundle branch block, similar morphology to prior no acute ischemic changes Woke up in the middle of the night. Was using CPAP and 'I slept good with 9mmHg' Woke up in the morning short of breath and uncomfortable, got up out of the chair and noticed her BP was up and breathing was a little worse and called EMS. +nauseus with episode. No diarrhea, no constipation today. Loose BMs yesterday. No chest pain or chest pressure. No syncope or presyncope. NO chest pressure/sequeezing. +headache frontal, improved at time of bedside of assessment but pt reports comes and goes. No change in vision. +cold sweats last night and in the ambulance. No fevers documented, but felt a little feverish. Per nursing report was also reported as having oxygen levels in the 50s although this was mistaken as the heart rate was actually in the 50s, oxygen levels were greater than 90% on arrival. Unclear if perhaps at home was misreading heart rate at his oxygen saturation. Medical History: Reviewed Medications: Reviewed Surgical History: Reviewed Allergies: Reviewed Social History: No tobacco or alcohol use. Code Status: Karina Peralta is medical power of bankruptcy attorney/decision maker [phone]. DNR/DNI. No want intubation for declining respiratory status. Allergies Allergy/AdvReac Type Severity Reaction Status Date / Time lisinopril AdvReac Intermediate COUGH Verified 08/26/21 12:18 Sulfa (Sulfonamide AdvReac Intermediate VOMITING Verified 08/26/21 12:18 Antibiotics) Home Medications Medication Instructions Recorded Confirmed Type copper gluconate 2 mg capsule 2 mg PO HS 09/05/18 08/26/21 History cyanocobalamin (vitamin B-12) 2,000 mcg PO QAM 09/05/18 08/26/21 History 2,000 mcg tablet,extended release (Vitamin B-12 ER) potassium citrate 10 mEq (1,080 10 meq PO BID #180 tab 10/16/20 08/26/21 Rx mg) tablet,extended release brinzolamide 1 % eye 2 drp OPR BID #10 ml 11/15/20 08/26/21 Rx drops,suspension (Azopt) trospium 20 mg tablet 20 mg PO BID #180 tab 01/02/21 08/26/21 Rx simvastatin 20 mg tablet 20 mg PO HS #90 tab 06/04/21 08/26/21 Rx famotidine 20 mg tablet 20 mg PO BID #180 tab 07/07/21 08/26/21 Rx clopidogrel 75 mg tablet 75 mg PO QAM #90 tab 07/13/21 08/26/21 Rx insulin glargine 100 unit/mL (3 See Rx Instructions .ROUTE 08/05/21 08/26/21 Rx mL) subcutaneous pen (Lantus .COMPLEX #90 ml Solostar U-100 Insulin) allopurinol 100 mg tablet 100 mg PO HS 08/23/21 08/26/21 History cholecalciferol (vitamin D3) 50 2,000 unit PO HS 08/23/21 08/26/21 History mcg (2,000 unit) tablet (Vitamin D3) donepezil 10 mg tablet 10 mg PO HS 08/23/21 08/26/21 History fluoxetine 10 mg capsule 10 mg PO QAM 08/23/21 08/26/21 History latanoprost 0.005 % eye drops 1 drp OPL HS 08/23/21 08/26/21 History levothyroxine 75 mcg tablet 75 mcg PO DAILYBB 08/23/21 08/26/21 History (Synthroid) metformin 500 mg tablet 500 mg PO QAM PRN 08/23/21 08/26/21 History metoprolol succinate 25 mg 25 mg PO HS 08/23/21 08/26/21 History tablet,extended release 24 hr mirabegron 50 mg tablet,extended 50 mg PO QAM 08/23/21 08/26/21 History release 24 hr (Myrbetriq) omeprazole magnesium 20 mg 20 mg PO HS 08/23/21 08/26/21 History tablet,delayed release (Prilosec OTC) timolol maleate 0.5 % eye drops 1 drp OPB BID 08/23/21 08/26/21 History cefdinir 300 mg capsule 300 mg PO BID #10 cap 08/25/21 08/26/21 Rx dexamethasone 6 mg tablet 6 mg PO DAILY #7 tab 08/25/21 08/26/21 Rx lactobacillus combination no.4 3 3,000 mmu cells PO DAILY #7 cap 08/25/21 08/26/21 Rx billion cell capsule (Probiotic) 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 Cerebral atherosclerosis Choledocholithiasis Chronic lower back pain Chronic reflux esophagitis Compression fracture of thoracic vertebra Depression Diarrhea Dyslipidemia Fibromyalgia Glaucoma Hemorrhoids, internal Hepatic steatosis History of CVA (cerebrovascular accident) (11/2020) History of gastric ulcer History of gastritis Erosive History of TIA (transient ischemic attack) Hypercalcemia Hypertension Hypothyroidism IBS (irritable bowel syndrome) Leukopenia Low serum copper for age Lumbar disc disease Lumbar stenosis with neurogenic claudication Mild cognitive impairment Night sweats Obstructive sleep apnea Osteoarthritis Osteopenia Pancytopenia Postherpetic neuralgia Renal cyst Sensorineural hearing loss (SNHL) of both ears Thrombocytopenia Type 2 diabetes mellitus Urinary calculus Urinary incontinence Ventral hernia Vitamin B12 deficiency Vitamin D deficiency Zoster ocular disease Surgical History History of cataract surgery right eye History of cholecystectomy History of colonoscopy History of knee replacement History of tonsillectomy S/P panniculectomy (02/20/19) 02/20/19 at [facility]- Lower abdominal panniculectomy with Dr. Mancia Status post laminectomy Family History Father , 81 from cancer Cardiac disorder Hypertension Kidney stones Prostate cancer Hearing loss Family/Other Cardiac disorder Hypertension Kidney stones Mother , age 98 with a senile dementia of the Alzheimer's type Dementia Hypertension Brother Dementia Lung cancer Myocardial infarction Aunt Breast cancer Other No family history of adverse response to anesthesia No family history of bleeding disorder Denies family history of Ovarian cancer Crohn's disease Colorectal cancer Social History Smoking Status: Never smoker Second Hand Exposure: No; Hx Alcohol Use: No Hx Substance Use: No Preferred Language: Swedish Communication Ability: Effective Visual Impairment: Limited Hearing Ability: Use of Hearing Aid 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: No Beliefs That Will Affect Care: None marital status: / Current Living Situation: Family Current Living Situation Comment: Lives w/ great granddaughter current occupational status: retired How many Children do You have: 2 Feels Safe at Home: Yes Childhood Exposure to Second-Hand Smoke: No caffeine: Yes (Tea 1 cup per day.) during the past year weight has: remained stable Dental Care, Regularly: Yes Physical Activity Frequency: Does not Exercise Seatbelt Use: always Sunscreen Use: No Assistive Devices: CPAP and Wheelchair Review of Systems Review of Systems: All systems reviewed & are unremarkable except as noted in HPI & below Physical Exam Physical Exam: General: A&Ox3. NAD. Cooperative. HEENT: Atraumatic, normocephalic. PERLAA. Vision impaired bilaterally L>R, perlaa. Hearing intact but very [place]. Pulm: Bibasilar crackles, trace right-sided end expiratory wheeze Symmetrical chest rise. No increased work of breathing. No respiratory distress. Cardiac: RRR, +soft systolic murmur. Radial pulses intact and symmetrical. Abdominal: Nontender, nondistended, soft. BS present. Ext: Warm, dry, intact. No edema. Soft touch intact in hands and feet. Dorsiflexion/plantarflexion ankle intact bilateral, assembly lead person strength intact bilat. Results & Data Results & Data ([facility]) Vital Signs (Past 12 Hours) Vital Signs Temp Pulse Pulse Resp BP BP Pulse Ox 08/26/21 13:22 85 24 95 08/26/21 11:57 95 08/26/21 11:56 82 22 163/69 H 95 08/26/21 11:51 37.6 C 85 24 163/69 H 95 PG Care Time/CCT Total # of Minutes Spent Total Time Spent with Patient: Total time spent is greater than 50% in coordination of care (as documented) at patient's floor/unit and/or counseling patient: Coding Level of Care Code INT OBSERVATION CARE 50M LVL 2 Diagnoses COVID-19 U07.1 Neutropenia D70.9 UTI (urinary tract infection) N39.0 Acute and chronic respiratory failure with hypoxia J96.21 Depression F32.9 Depression Type: major depressive disorder Major depression recurrence: unspecified whether recurrent Active/Remission status: remission status unspecified Hypertension I10 Hypertension type: essential hypertension Hypothyroidism E03.9 Hypothyroidism type: unspecified Obstructive sleep apnea G47.33 Type 2 diabetes mellitus E11.42; Z79.4 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: with [facility] use Diabetes mellitus complication status: with neurologic complications Diabetes mellitus complication detail: with polyneuropathy History of CVA (cerebrovascular accident) Z86.73 (1) Depression Depression Type: major depressive disorder Major depression recurrence: unspecified whether recurrent Active/Remission status: remission status unspecified Qualified Code(s): F32.9 - Major depressive disorder, single episode, unspecified (2) Hypertension Hypertension type: essential hypertension Qualified Code(s): I10 - Essential (primary) hypertension (3) Hypothyroidism Hypothyroidism type: unspecified Qualified Code(s): E03.9 - Hypothyroidism, unspecified (4) Type 2 diabetes mellitus 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: with [facility] use Diabetes mellitus complication status: with neurologic complications Diabetes mellitus complication detail: with polyneuropathy Qualified Code(s): E11.42 - Type 2 diabetes mellitus with diabetic polyneuropathy; Z79.4 - adjunct faculty for medical terminology (current) use of insulin
[2021-08-26] MEDS: MAGNESIUM OXIDE 400 MG TAB PO SCH (14:30)
[2021-08-26] MEDS ORDERED: ALBUT/IPRATROP 3MG/0.5MG NEB 3 ML VIAL INH PRN (14:48)
[2021-08-26] MEDS ORDERED: CARBOHYDRATES FOR HYPOGLYCEMIA PO PRN (16:01)
[2021-08-26] MEDS ORDERED: GLUCOSE 40% GEL 15 GM TUBE PO PRN (16:01)
[2021-08-26] MEDS ORDERED: DEXTROSE 50% 50 ML SYRINGE IV PRN (16:01)
[2021-08-26] MEDS ORDERED: GLUCAGON FOR INJ 1 MG VIAL SQ PRN (16:01)
[2021-08-26] MEDS ORDERED: GLUCOSE 10 TABS/TUBE PO PRN (16:01)
[2021-08-26] MEDS: dexAMETHasone 6 MG in SYRINGE 0 ML IV SCH (16:53)
[2021-08-26] MEDS: INSULIN ASPART PER UNIT SC SCH ×2 (18:00→22:00)
[2021-08-26] MEDS: ACETAMINOPHEN 325 MG TAB PO PRN (22:45)
[2021-08-26] MEDS: PANTOprazole 40 MG TAB PO SCH (22:46)
[2021-08-26] MEDS: CEFDINIR 300 MG CAP PO SCH (22:47)
[2021-08-26] MEDS: DONEPEZIL HCL 10 MG TAB PO SCH (22:47)
[2021-08-26] MEDS: SIMVASTATIN 20 MG TAB PO SCH (22:47)
[2021-08-26] MEDS: FAMOTIDINE 20 MG TAB PO SCH (22:47)
[2021-08-26] MEDS: allopurinoL 100 MG TAB PO SCH (22:47)
[2021-08-26] MEDS: METOPROLOL SUCC 25MG EXT REL TAB PO SCH (22:47)
[2021-08-26] MEDS: LATANOPROST 0.005% OP SOLN 2.5 ML BTL OPL SCH (22:48)
[2021-08-26] MEDS: ENOXAPARIN INJ 40 MG/0.4 ML SYR SQ SCH (22:48)
[2021-08-26] MEDS: INSULIN GLARGINE SOLOSTAR 100 UNITS/ML 3 ML PEN SC SCH (23:15)
[2021-08-27] MEDS: LEVOTHYROXINE SODIUM 75 MCG TABLET PO SCH (06:11)
[2021-08-27 06:27] LABS: Hematocrit (blood only) 37.1 % (37-47); Hemoglobin 12.5 g/dL (12.0-16.0); Mean Corpuscular Hemoglobin 34.9 pg (25-34); Mean Corpuscular Hgb Conc 33.7 g/dL (32-36); Mean Corpuscular Volume 103.6 fL (80-100); RDW Coefficient of Variation 16.1 % (11.5-14.5); RDW Standard Deviation 60.8 fL (36.4-46.3); Red Blood Count 3.58 M/uL (4.2-5.4)
--- NOTE | 2021-08-27 06:35 | Electrocardiogram Report ---
Test Reason : Blood Pressure : / mmHG Vent. Rate : 084 BPM Atrial Rate : 084 BPM P-R Int : 154 ms QRS Dur : 132 ms QT Int : 408 ms P-R-T Axes : 083 -04 034 degrees QTc Int : 482 ms Poor data quality, interpretation may be adversely affected Normal sinus rhythm Right bundle branch block Abnormal ECG When compared with ECG of 23-AUG-2021 13:11, No significant change was found Confirmed by Elliott Mayes ([id number]) on 08/27/2021 6:35:32 AM Referred By: Confirmed By:Elliott Mayes
[2021-08-27 06:50] LABS: Mean Platelet Volume 9.9 fL (7.4-10.4); Platelet Count 85 K/uL (130-400)
[2021-08-27 06:54] LABS: Albumin Globulin Ratio 1.4 (0.9-2); Albumin Level 3.5 gm/dl (3.4-5.0); BUN Creatinine Ratio 34.7 (10-20); Bilirubin,Total 0.6 mg/dl (0.2-1.0); Calcium 8.7 mg/dl (8.5-10.1); Creatinine Clr Calc Pharmacy 50.5 ml/min; Est GFR (African American) 81.9 ml/min; Est GFR (Non-African American) 70.7 ml/min; Globulin 2.5 gm/dl (2.5-4.0); Immature Granulocytes # (auto) 0.01 K/uL (0.00-0.02); Immature Granulocytes % (auto) 0.5 %; Lymphocytes # (auto) 0.34 K/uL (1.2-3.4); Lymphocytes % (auto) 16.2 %; Monocytes # (auto) 0.34 K/uL (0.11-0.59); Monocytes % (auto) 16.2 %; Neutrophils # (auto) 1.41 K/uL (1.4-6.5); Neutrophils % (auto) 67.1 %; Potassium 4.4 mmol/L (3.5-5.1)
[2021-08-27 06:57] LABS: Appearance Urine Clear (Clear); Bacteria Urine Automated Negative (Negative); Bilirubin Urine Negative (Negative); Blood Urine Negative (Negative); Color Urine Dark Yellow; Glucose Urine UA Negative (Negative); Ketones Urine Negative (Negative); Leukocyte Esterase Urine Negative (Negative); Nitrite Urine Negative (Negative); Protein Urine 2+ (Negative); RBC Urine Automated 0-4 /hpf (0-4); Specific Gravity Urine 1.022 (1.000-1.030); Urobilinogen Urine Negative (Negative); pH Urine 6.5 (4.5-7.5)
[2021-08-27] MEDS: CEFDINIR 300 MG CAP PO SCH ×2 (08:36→21:59)
[2021-08-27] MEDS: FAMOTIDINE 20 MG TAB PO SCH ×2 (08:36→22:23)
[2021-08-27] MEDS: MIRABEGRON ER 25 MG TAB PO SCH (08:37)
[2021-08-27] MEDS: MAGNESIUM OXIDE 400 MG TAB PO SCH (08:37)
[2021-08-27] MEDS: FLUoxetine HCL 10 MG CAP PO SCH (08:37)
[2021-08-27] MEDS: ENOXAPARIN INJ 40 MG/0.4 ML SYR SQ SCH ×2 (08:37→21:58)
[2021-08-27] MEDS: dexAMETHasone 6 MG in SYRINGE 0 ML IV SCH (08:38)
[2021-08-27] MEDS: CLOPIDOGREL BISULFATE 75 MG TAB PO SCH (08:38)
[2021-08-27] MEDS: INSULIN ASPART PER UNIT SC SCH ×4 (08:56→22:30)
[2021-08-27] MEDS: INSULIN GLARGINE SOLOSTAR 100 UNITS/ML 3 ML PEN SC SCH ×2 (08:56→22:30)
--- NOTE | 2021-08-27 17:33 | Hospitalist Progress Note ---
Date of Service August 27, 2021 Assessment & Plan (1) COVID-19: Plan: No leukocytosis on admission, patient with viral suppression improved from prior Procalcitonin normal Troponin negative Transaminases normal at admission CXR: Cardiomegaly with pulmonary vascular congestion, interstitial coarsening suggestive of pulmonary edema versus interstitial pneumonitis. Last TTE 11/14/2020 with EF 60-65%, grade 1 diastolic dysfunction Symptom onset ~08/15/21 Covid + 08/23/2021 No high flow requirements, does not meet criteria for baricitinib/tocilizumab Patient oxygenation 93% at rest. Patient feels fatigued and somewhat short of breath with exertion, but doing better overnight. -EKG: Normal sinus rhythm, QTC 481. Right bundle branch block. Continue dexamethasone Medically improving (2) Neutropenia: Plan: Suspect viral suppression, follow as above Improved from prior (3) UTI (urinary tract infection): Plan: Prior UC pending speciation Continue treatment with cefdinir Gamma strep culture 08/23, was complete 08/28 (4) Acute and chronic respiratory failure with hypoxia: Plan: Improved, 2/2 COVID as above (5) Depression: Plan: Continue home SSRI (6) Hypertension: Plan: Improving, adequate blood pressure control today Continue metoprolol (7) Hypothyroidism: Plan: Continue home Synthroid (8) Obstructive sleep apnea: Plan: CPAP nightly (9) Type 2 diabetes mellitus: Plan: Glucose checks AC/at bedtime Goal BSG 1001 40 Lantus 10 twice daily SSI CF 40, carb ratio 15 (10) History of CVA (cerebrovascular accident): Plan: Continue Plavix Plan: DVT prophylaxis: Covid dosed Lovenox Diet: Pured due to not having dentures, DM2 CODE STATUS: DNR/DNI discussed with patient Disposition: Medical for observation Admission and Anticipated Discharge Date Admission Date: August 26, 2021 Subjective Patient is seen at the bedside. She feels she is a little bit better, and had a good nights rest but is still weak. Feels she "is definitely not ready" to go home, and that if she were to be discharged and she would probably come right back to the emergency department tonight. Review of Systems Review of Systems: All systems reviewed & are unremarkable except as noted in Subjective Physical Exam Physical Exam: General: A&Ox3. NAD. Cooperative. HEENT: Atraumatic, normocephalic. PERLAA. Vision impaired bilaterally L>R, perlaa. Hearing intact but hard of hearing. Pulm: Bibasilar crackles, no wheezing. Symmetrical chest rise. No increased work of breathing. No respiratory distress. Cardiac: RRR, +soft systolic murmur. Radial pulses intact and symmetrical. Abdominal: Nontender, nondistended, soft. BS present. Ext: Warm, dry, intact. No edema. Soft touch intact in hands and feet. supervisor car and yard strength intact bilat. Results & Data Results & Data ([facility]) Vital Signs (Past 12 Hours) Vital Signs Temp Pulse Resp BP Pulse Ox 08/27/21 15:43 36.9 C 83 16 152/76 H 93 08/27/21 08:34 36.7 C 81 16 155/81 H 95 PG Care Time/CCT Total # of Minutes Spent Total Time Spent with Patient: Total time spent is greater than 50% in coordination of care (as documented) at patient's floor/unit and/or counseling patient: Coding Level of Care Code 20613 Subseq Obs Care Lvl 2 Diagnoses COVID-19 U07.1 Neutropenia D70.9 UTI (urinary tract infection) N39.0 Acute and chronic respiratory failure with hypoxia J96.21 Depression F32.9 Depression Type: major depressive disorder Major depression recurrence: unspecified whether recurrent Active/Remission status: remission status unspecified Hypertension I10 Hypertension type: essential hypertension Hypothyroidism E03.9 Hypothyroidism type: unspecified Obstructive sleep apnea G47.33 Type 2 diabetes mellitus E11.42; Z79.4 Diabetes mellitus usp insulin use: with pre sales technical engineer use Diabetes mellitus complication status: with neurologic complications Diabetes mellitus complication detail: with polyneuropathy History of CVA (cerebrovascular accident) Z86.73 (1) Depression Depression Type: major depressive disorder Major depression recurrence: unspecified whether recurrent Active/Remission status: remission status unspecified Qualified Code(s): F32.9 - Major depressive disorder, single episode, unspecified (2) Hypertension Hypertension type: essential hypertension Qualified Code(s): I10 - Essential (primary) hypertension (3) Hypothyroidism Hypothyroidism type: unspecified Qualified Code(s): E03.9 - Hypothyroidism, unspecified (4) Type 2 diabetes mellitus Diabetes mellitus usp insulin use: with pre sales technical engineer use Diabetes mellitus complication status: with neurologic complications Diabetes mellitus complication detail: with polyneuropathy Qualified Code(s): E11.42 - Type 2 diabetes mellitus with diabetic polyneuropathy; 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
[2021-08-27] MEDS: LATANOPROST 0.005% OP SOLN 2.5 ML BTL OPL SCH (21:58)
[2021-08-27] MEDS: allopurinoL 100 MG TAB PO SCH (21:59)
[2021-08-27] MEDS: DONEPEZIL HCL 10 MG TAB PO SCH (21:59)
[2021-08-27] MEDS: PANTOprazole 40 MG TAB PO SCH (21:59)
[2021-08-27] MEDS: METOPROLOL SUCC 25MG EXT REL TAB PO SCH (22:03)
[2021-08-27] MEDS: SIMVASTATIN 20 MG TAB PO SCH (22:04)
[2021-08-27] MEDS: ACETAMINOPHEN 325 MG TAB PO PRN (22:23)
[2021-08-28] MEDS: INSULIN GLARGINE SOLOSTAR 100 UNITS/ML 3 ML PEN SC SCH ×3 (00:07→20:41)
[2021-08-28 05:35] LABS: Hematocrit (blood only) 36.7 % (37-47); Hemoglobin 12.6 g/dL (12.0-16.0); Mean Corpuscular Hemoglobin 35.1 pg (25-34); Mean Corpuscular Hgb Conc 34.3 g/dL (32-36); Mean Corpuscular Volume 102.2 fL (80-100); RDW Coefficient of Variation 15.6 % (11.5-14.5); RDW Standard Deviation 59.1 fL (36.4-46.3); Red Blood Count 3.59 M/uL (4.2-5.4); White Blood Count 4.79 K/uL (4.8-10.8)
[2021-08-28] MEDS: LEVOTHYROXINE SODIUM 75 MCG TABLET PO SCH (05:42)
[2021-08-28 05:54] LABS: BUN Creatinine Ratio 34.3 (10-20); Calcium 8.7 mg/dl (8.5-10.1); Creatinine Clr Calc Pharmacy 54.1 ml/min; Est GFR (Non-African American) 76.8 ml/min
[2021-08-28 05:56] LABS: Mean Platelet Volume 9.7 fL (7.4-10.4); Platelet Count 90 K/uL (130-400)
[2021-08-28 06:49] LABS: Echinocytes 1+; Lymphocytes # (auto) 0.51 K/uL (1.2-3.4); Lymphocytes % (auto) 10.6 %; Monocytes # (auto) 0.39 K/uL (0.11-0.59); Monocytes % (auto) 8.1 %; Neutrophils # (auto) 3.89 K/uL (1.4-6.5); Neutrophils % (auto) 81.3 %; Ovalocytes 1+
[2021-08-28] MEDS: MIRABEGRON ER 25 MG TAB PO SCH (09:16)
[2021-08-28] MEDS: CEFDINIR 300 MG CAP PO SCH ×2 (09:16→20:24)
[2021-08-28] MEDS: MAGNESIUM OXIDE 400 MG TAB PO SCH (09:16)
[2021-08-28] MEDS: CLOPIDOGREL BISULFATE 75 MG TAB PO SCH (09:16)
[2021-08-28] MEDS: FLUoxetine HCL 10 MG CAP PO SCH (09:16)
[2021-08-28] MEDS: ENOXAPARIN INJ 40 MG/0.4 ML SYR SQ SCH ×2 (09:18→20:22)
[2021-08-28] MEDS: INSULIN ASPART PER UNIT SC SCH ×4 (09:42→20:41)
[2021-08-28] MEDS: FAMOTIDINE 20 MG TAB PO SCH ×2 (09:48→20:25)
[2021-08-28] MEDS: dexAMETHasone 6 MG in SYRINGE 0 ML IV SCH (09:48)
--- NOTE | 2021-08-28 10:19 | Hospitalist Progress Note ---
Date of Service August 28, 2021 Assessment & Plan (1) COVID-19: Plan: No leukocytosis on admission WBC still slightly suppressed, improved from prior Procalcitonin normal Troponin negative Transaminases normal at admission CXR: Cardiomegaly with pulmonary vascular congestion, interstitial coarsening suggestive of pulmonary edema versus interstitial pneumonitis. Last TTE 11/14/2020 with EF 60-65%, grade 1 diastolic dysfunction Symptom onset ~08/15/21 Covid + 08/23/2021 No high flow requirements, does not meet criteria for baricitinib/tocilizumab -EKG: Normal sinus rhythm, QTC 481. Right bundle branch block. Continue dexamethasone -Patient remains extremely anxious, feels like her breathing is very poor overnight and wakes up with episodes of shortness of breath but no documented desaturations. Overnight pulse ox pending, also with treatment of potential gastritis and not tolerating p.o. 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 Switched to protonix while inpt, will dose adjust to 20mg BID for 1 week on discharge, added famotidine For Zofran due to QT prolongation (3) Neutropenia: Plan: Suspect viral suppression, follow as above Improved from prior (4) UTI (urinary tract infection): Plan: Gamma strep on urine culture, 5-day course of antibiotics complete evening 08/28 Continue treatment with cefdinir (5) Acute and chronic respiratory failure with hypoxia: Plan: Improved, 2/2 COVID as above (6) Depression: Plan: Continue home SSRI (7) Hypertension: Plan: Improving, adequate blood pressure control today Continue metoprolol (8) Hypothyroidism: Plan: Continue home Synthroid (9) Obstructive sleep apnea: Plan: CPAP nightly (10) Type 2 diabetes mellitus: Plan: Glucose checks AC/at bedtime Goal BSG 1001 40 Lantus 10 twice daily SSI CF 40, carb ratio 15 (11) History of CVA (cerebrovascular accident): Plan: Continue Plavix Plan: DVT prophylaxis: Covid dosed Lovenox Diet: Pured due to not having dentures, DM2 CODE STATUS: DNR/DNI discussed with patient Disposition: Patient unable to tolerate p.o. with gastritis likely due to steroids, subjective feeling of shortness of breath overnight. Overnight pulse ox pending, gastritis treatment Admission and Anticipated Discharge Date Admission Date: August 26, 2021 Subjective And was seen at the bedside today. She reports she had a terrible night, felt like she was feverish with sweats and chills. No documented fever. She is very nauseous this morning and has not been able to eat, reports he does have a history of stomach upset and gastritis for which she has had visits in the ER requiring antiemetics and antacids before. She is pending Pepcid but has not gotten this yet today. Has had nausea control Zofran in the past, however is borderline QT prolonged during this admission. She has also reported waking up feeling very short of breath at night, even though intermittent pulse ox measurements have been okay. Denies diarrhea/constipation. Endorses headache this morning. Endorses shortness of breath intermittently and with exertion, none at rest at time of exertion. No chest pain. Review of Systems Review of Systems: All systems reviewed & are unremarkable except as noted in Subjective Physical Exam Physical Exam: General: A&Ox3. NAD. Cooperative. HEENT: Atraumatic, normocephalic. PERLAA. Vision impaired bilaterally L>R, perlaa. Hearing intact but hard of hearing. Pulm: Bibasilar crackles, no wheezing. Symmetrical chest rise. No increased work of breathing. No respiratory distress. Cardiac: RRR, +soft systolic murmur. Radial pulses intact and symmetrical. Abdominal: Nontender, nondistended, soft. BS present. Ext: Warm, dry, intact. No edema. Soft touch intact in hands and feet. seam presser strength intact bilat. Results & Data Results & Data ([facility]) Vital Signs (Past 12 Hours) Vital Signs Temp Pulse Resp BP Pulse Ox 08/28/21 06:47 36.7 C 90 18 169/82 H 91 PG Care Time/CCT Total # of Minutes Spent Total Time Spent with Patient: Total time spent is greater than 50% in coordination of care (as documented) at patient's floor/unit and/or counseling patient: Coding Level of Care Code 85357 Subseq Hosp Care Lvl 2 Diagnoses COVID-19 U07.1 Neutropenia D70.9 UTI (urinary tract infection) N39.0 Acute and chronic respiratory failure with hypoxia J96.21 Depression F32.9 Active/Remission status: remission status unspecified Depression Type: major depressive disorder Major depression recurrence: unspecified whether recurrent Hypertension I10 Hypertension type: essential hypertension Hypothyroidism E03.9 Hypothyroidism type: unspecified Obstructive sleep apnea G47.33 Type 2 diabetes mellitus E11.42; Z79.4 Diabetes mellitus complication detail: with polyneuropathy Diabetes mellitus complication status: with neurologic complications 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: with extermination supervisor use History of CVA (cerebrovascular accident) Z86.73 Gastritis medicamentosa K29.60 (1) Type 2 diabetes mellitus Diabetes mellitus complication detail: with polyneuropathy Diabetes mellitus complication status: with neurologic complications Diabetes mellitus half-way insulin use: with extermination supervisor use Qualified Code(s): E11.42 - Type 2 diabetes mellitus with diabetic polyneuropathy; Z79.4 - prison (current) use of insulin (2) Depression Active/Remission status: remission status unspecified Depression Type: major depressive disorder Major depression recurrence: unspecified whether recurrent Qualified Code(s): F32.9 - Major depressive disorder, single episode, unspec ified (3) Hypothyroidism Hypothyroidism type: unspecified Qualified Code(s): E03.9 - Hypothyroidism, unspecified (4) Hypertension Hypertension type: essential hypertension Qualified Code(s): I10 - Essential (primary) hypertension
[2021-08-28] MEDS: METOPROLOL SUCC 25MG EXT REL TAB PO SCH (20:22)
[2021-08-28] MEDS: SIMVASTATIN 20 MG TAB PO SCH (20:23)
[2021-08-28] MEDS: DONEPEZIL HCL 10 MG TAB PO SCH (20:24)
[2021-08-28] MEDS: allopurinoL 100 MG TAB PO SCH (20:25)
[2021-08-28] MEDS: LATANOPROST 0.005% OP SOLN 2.5 ML BTL OPL SCH (20:26)
[2021-08-28] MEDS ORDERED: PANTOprazole 40 MG TAB PO SCH ×2 (21:00)
[2021-08-29] MEDS: ACETAMINOPHEN 325 MG TAB PO PRN (03:14)
[2021-08-29] MEDS ORDERED: ALUMINUM/MAGNESIUM SUSP 30 ML UDC PO STA (03:21)
[2021-08-29] MEDS ORDERED: BISMUTH SUBSALICYLATE 262 MG CHEW PO STA (03:21)
[2021-08-29] MEDS: LEVOTHYROXINE SODIUM 75 MCG TABLET PO SCH (06:29)
[2021-08-29 07:16] LABS: Hematocrit (blood only) 36.6 % (37-47); Hemoglobin 12.4 g/dL (12.0-16.0); Immature Granulocytes # (auto) 0.02 K/uL (0.00-0.02); Immature Granulocytes % (auto) 0.3 %; Lymphocytes # (auto) 0.42 K/uL (1.2-3.4); Mean Corpuscular Hemoglobin 34.6 pg (25-34); Mean Corpuscular Hgb Conc 33.9 g/dL (32-36); Mean Corpuscular Volume 102.2 fL (80-100); Mean Platelet Volume 9.7 fL (7.4-10.4); Monocytes # (auto) 0.73 K/uL (0.11-0.59); Monocytes % (auto) 10.4 %; Neutrophils # (auto) 5.86 K/uL (1.4-6.5); Neutrophils % (auto) 83.3 %; Platelet Count 125 K/uL (130-400); RDW Coefficient of Variation 15.9 % (11.5-14.5); RDW Standard Deviation 59.4 fL (36.4-46.3); Red Blood Count 3.58 M/uL (4.2-5.4); White Blood Count 7.03 K/uL (4.8-10.8)
[2021-08-29 07:44] LABS: Albumin Globulin Ratio 1.3 (0.9-2); Albumin Level 3.5 gm/dl (3.4-5.0); BUN Creatinine Ratio 31.9 (10-20); Bilirubin,Total 0.9 mg/dl (0.2-1.0); Calcium 8.7 mg/dl (8.5-10.1); Creatinine Clr Calc Pharmacy 52.6 ml/min; Est GFR (African American) 86.1 ml/min; Est GFR (Non-African American) 74.3 ml/min; Globulin 2.6 gm/dl (2.5-4.0); Potassium 3.8 mmol/L (3.5-5.1); Total Protein 6.1 gm/dl (6.0-8.3)
[2021-08-29] MEDS: dexAMETHasone 6 MG in SYRINGE 0 ML IV SCH (08:06)
[2021-08-29] MEDS: CLOPIDOGREL BISULFATE 75 MG TAB PO SCH (08:06)
[2021-08-29] MEDS: FAMOTIDINE 20 MG TAB PO SCH (08:06)
[2021-08-29] MEDS: FLUoxetine HCL 10 MG CAP PO SCH (08:07)
[2021-08-29] MEDS: ENOXAPARIN INJ 40 MG/0.4 ML SYR SQ SCH (08:07)
[2021-08-29] MEDS: CEFDINIR 300 MG CAP PO SCH (08:07)
[2021-08-29] MEDS: MIRABEGRON ER 25 MG TAB PO SCH (08:07)
[2021-08-29] MEDS: MAGNESIUM OXIDE 400 MG TAB PO SCH (08:07)
[2021-08-29] MEDS: INSULIN GLARGINE SOLOSTAR 100 UNITS/ML 3 ML PEN SC SCH (08:56)
[2021-08-29] MEDS: INSULIN ASPART PER UNIT SC SCH (08:56)
--- NOTE | 2021-08-29 11:28 | Discharge Summary ---
Date of Service August 29, 2021 Admission HPI Per Admitting Provider Amira is an 89-year-old female with past medical history of reflux esophagitis, depression, hyperlipidemia, fibromyalgia, hypertension, hypothyroidism, sleep apnea, type 2 diabetes mellitus, CVA/TIA who was recently admitted and discharged 08/25/2021 with Covid, unvaccinated, who returned home without oxygen requirements but had hypertension and additional shortness of breath today prompting return to the ER and who is been recommended for reevaluation and observation. Willa was reportedly at home with her granddaughter when she developed worsening shortness of breath last night and this morning after being discharged home. Had passed a two-step at time of discharge. EMS was called and reportedly had a blood pressure in 200s/100s, patient was placed on supplemental oxygen without improvement unclear what initial oxygen level in 80s. On arrival to the ER blood pressure 160s/60s O2 sat 95% on room air. Chest x-ray in the emergency department shows development of bibasilar opacities reflecting pneumonia versus aspiration pneumonitis, cardiomegaly, stable interstitial thickening. Troponin negative, BNP normal, white blood cell count 4.37, pro-Edward pending. EKG with right bundle branch block, similar morphology to prior no acute ischemic changes Woke up in the middle of the night. Was using CPAP and 'I slept good with 9mmHg' Woke up in the morning short of breath and uncomfortable, got up out of the chair and noticed her BP was up and breathing was a little worse and called EMS. +nauseus with episode. No diarrhea, no constipation today. Loose BMs yesterday. No chest pain or chest pressure. No syncope or presyncope. NO chest pressure/sequeezing. +headache frontal, improved at time of bedside of assessment but pt reports comes and goes. No change in vision. +cold sweats last night and in the ambulance. No fevers documented, but felt a little feverish. Per nursing report was also reported as having oxygen levels in the 50s although this was mistaken as the heart rate was actually in the 50s, oxygen levels were greater than 90% on arrival. Unclear if perhaps at home was misreading heart rate at his oxygen saturation. Medical History: Reviewed Medications: Reviewed Surgical History: Reviewed Allergies: Reviewed Social History: No tobacco or alcohol use. Code Status: Karina Peralta is medical power of document review attorney/decision maker [phone]. DNR/DNI. No want intubation for declining respiratory status. Principal Diagnosis COVID-19 pneumonia Discharge Exam General: A&Ox3. NAD. Cooperative. HEENT: Atraumatic, normocephalic. PERLAA. Vision impaired bilaterally at baseline, no acute change. Hearing intact but very [place]. Pulm: CTAB A&P. -wheezes, -rales, -rhonchi. Symmetrical chest rise. No increased work of breathing. No respiratory distress. Cardiac: RRR, +soft systolic murmur. Radial pulses intact and symmetrical. Abdominal: Nontender, nondistended, soft. BS present. Ext: Warm, dry, intact. No edema. Soft touch intact in hands and feet. Discharge Data Allergies Allergy/AdvReac Type Severity Reaction Status Date / Time lisinopril AdvReac Intermediate COUGH Verified 08/26/21 12:18 Sulfa (Sulfonamide AdvReac Intermediate VOMITING Verified 08/26/21 12:18 Antibiotics) Consultations 08/26/21 13:51 ED Decision to Admit Stat Hospital Course (1) COVID-19: Amira is an 89-year-old female who is seen for readmission following a hypoxic event in the setting of COVID-19 pneumonia. She progressed clinically well, was discharged with nighttime oxygen as noted below. To do as outpatient: 1. Complete dexamethasone 10-day course 2. Nighttime oxygen 2 L nightly as needed, may use with CPAP 3. Routine follow-up to PCP within 1 week 4. Home no services to check in on patient and provide home PT 5. Follow-up of gastritis, likely worsened due to steroids nearing completion. Patient on PPI and twice daily H2 jorge while on steroids COVID-19 pneumonia No leukocytosis on admission WBC still slightly suppressed, improved from prior Procalcitonin normal Troponin negative Transaminases normal at admission CXR: Cardiomegaly with pulmonary vascular congestion, interstitial coarsening suggestive of pulmonary edema versus interstitial pneumonitis. Last TTE 11/14/2020 with EF 60-65%, grade 1 diastolic dysfunction Symptom onset ~08/15/21 Covid + 08/23/2021 No high flow requirements, does not meet criteria for baricitinib/tocilizumab -EKG: Normal sinus rhythm, QTC 481. Right bundle branch block. Continue dexamethasone (2) Gastritis medicamentosa: - Hx of stomach upset/GERD in the past -Improved on day of discharge - Suspect worsened in the setting of steroid use -Continue PPI, H2 jorge twice daily (3) Neutropenia: Suspect viral suppression, follow as above Improved from prior (4) UTI (urinary tract infection): Gamma strep on urine culture, 5-day course of cefdinir complete evening 08/28 (5) Acute and chronic respiratory failure with hypoxia: Improved, 2/2 COVID as above (6) Depression: Continue home SSRI (7) Hypertension: Improving, adequate blood pressure control today Continue metoprolol (8) Hypothyroidism: Continue home Synthroid (9) Obstructive sleep apnea: CPAP nightly (10) Type 2 diabetes mellitus: Glucose checks AC/at bedtime Goal BSG 1001 40 Lantus 10 twice daily SSI CF 40, carb ratio 15 (11) History of CVA (cerebrovascular accident): Continue Plavix DVT prophylaxis: Covid dosed Lovenox Diet: Pured due to not having dentures, DM2 CODE STATUS: DNR/DNI discussed with patient Total Time Total Time Spent Total Time Spent (In Minutes): Time spend day of discharge 32 minutes including direct patient care, documentation, review of labs and images, and coordination of care. Discharge Plan Discharge Items Patient Disposition: Home - Home Health Services Reason For Visit: HYPOXIA, COVID 19 Discharge Diagnosis: COVID-19, hypoxia Activity: Per Instructions section Non-emergency contact: Primary Care Provider Call non-emergency contact if: you have any medication questions, your symptoms worsen and your pain is not controlled Follow-up/Referrals: Vivian Humphrey DO [Primary Care Provider] - Diet: Heart Healthy Addtl Attending Provider Instructions: You are seen in the hospital for COVID-19 and concern of low oxygen levels. Your oxygen levels were normal during the daytime, but you did experience some low oxygen levels at night. You have been prescribed 2 L of oxygen which can be used with CPAP at night. You do not need to use oxygen during the day. Please continue to take your dexamethasone 6 mg daily. This course was started on 08/23, and will be complete with the last dose on 09/02. Please stop taking dexamethasone on 09/02. Steroids can be irritating to the stomach, please take [id number] Pepcid 20 mg twice daily and continue to take your home Prilosec at night to help minimize this effect. Please call your primary care physician to schedule a follow-up appointment for within 1 week. Home health services are being arranged for you with home physical therapy. If you develop any new or worsening symptoms including fever, chills, sweats, chest pain, chest pressure, difficulty breathing, uncontrolled nausea/vomiting, rash, wheezing, passing out or nearly passing out, bleeding, black/bloody bowel movements, or other new or concerning symptoms please call your primary care physician, or call 911 for re-evaluation in the emergency department if you are very concerned. Pending Studies at Discharge: No Stand-Alone Forms: My [facility] Voucheres, Smoking Cessation Medications and DC Order Prescriptions: Continued potassium citrate 10 mEq (1,080 mg) tablet extended release 10 meq PO BID Qty: 180 RF: 3 simvastatin 20 mg tablet 20 mg PO HS Qty: 90 RF: 1 famotidine 20 mg tablet 20 mg PO BID Qty: 180 RF: 0 clopidogrel 75 mg tablet 75 mg PO QAM Qty: 90 RF: 1 Lantus Solostar U-100 Insulin 100 unit/mL (3 mL) insulin pen See Rx Instructions .ROUTE .COMPLEX Qty: 90 RF: 5 trospium 20 mg tablet 20 mg PO BID Qty: 180 RF: 3 cyanocobalamin (vitamin B-12) [Vitamin B-12] 2,000 mcg Tablet Extended Release 2,000 mcg PO QAM RF: 0 copper gluconate 2 mg Capsule 2 mg PO HS RF: 0 latanoprost 0.005 % drops 1 drp OPL HS RF: 0 timolol maleate 0.5 % drops 1 drp OPB BID RF: 0 metformin 500 mg tablet 500 mg PO QAM PRN (Reason: high sugar levels) RF: 0 donepezil 10 mg tablet 10 mg PO HS RF: 0 levothyroxine [Synthroid] 75 mcg tablet 75 mcg PO DAILYBB RF: 0 fluoxetine 10 mg capsule 10 mg PO QAM RF: 0 metoprolol succinate 25 mg tablet extended release 24 hr 25 mg PO HS RF: 0 omeprazole magnesium [Prilosec OTC] 20 mg tablet,delayed release (DR/EC) 20 mg PO HS RF: 0 cholecalciferol (vitamin D3) [Vitamin D3] 2,000 unit tablet 2,000 unit PO HS RF: 0 Myrbetriq 50 mg tablet extended release 24 hr 50 mg PO QAM RF: 0 allopurinol 100 mg tablet 100 mg PO HS RF: 0 dexamethasone 6 mg tablet 6 mg PO DAILY Qty: 7 RF: 0 Probiotic 3 billion cell capsule 3,000 mmu cells PO DAILY Qty: 7 RF: 0 brinzolamide [Azopt] 1 % Drops,Suspension 2 drp OPR BID Qty: 10 RF: 0 Discontinued cefdinir 300 mg Capsule 300 mg PO BID Qty: 10 RF: 0 Discharge Orders: Discharge Order (Routine); Ordered 08/29/21 Ordered By: Zeeshan Flowers Admission Data Admit Date/Time: 08/28/21 10:15 Attending Provider: Zeeshan Flowers Admit Provider: Zeeshan Flowers Primary Care Provider: Vivian Humphrey Other Providers: Zeeshan Flowers ; Alber Wright [facility] Coding Level of Care Code D/C DAY MANAGEMENT >30 MINS Diagnoses COVID-19 U07.1 Gastritis medicamentosa K29.60 Neutropenia D70.9 UTI (urinary tract infection) N39.0 Acute and chronic respiratory failure with hypoxia J96.21 Depression F32.9 Depression Type: major depressive disorder Major depression recurrence: unspecified whether recurrent Active/Remission status: remission status unspecified Hypertension I10 Hypertension type: essential hypertension Hypothyroidism E03.9 Hypothyroidism type: unspecified Obstructive sleep apnea G47.33 Type 2 diabetes mellitus E11.42; Z79.4 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
== END 2021-08-29 13:13 | disposition home health service (06) | DRG 177 ==
LOC: EDINP 11:30 → ED 11:30 → 3E 17:36